=== PATIENT | male | born 1945 | race African-American/Black ===

== ENCOUNTER 2019-06-27 05:44 | Inpatient (IN) | payer MEDICARE, MEDICAID, SELFPAY ==
[2019-06-27] VITALS (14 sets, daily range): BP systolic 119–167; BP diastolic 60–79; PULSE 82–120; RESP 16–24; TEMP 36.1–37.2; O2SAT 90–98; BMI 19.5
--- NOTE | 2019-06-27 05:48 | CTR_ITS ---
PROCEDURE INFORMATION: Exam: CT Head Without Contrast Exam date and time: 06/27/2019 5:50 AM Age: 73 years old Clinical indication: Injury or trauma; Fall; Speech disturbance; Slurred speech; Patient HX: HX prior stoke; Additional info: CVA TECHNIQUE: Imaging protocol: Computed tomography of the head without contrast. Total DLP: 827.74 mGy-cm Radiation optimization: All CT scans at this facility use at least one of these dose optimization techniques: automated exposure control; mA and/or kV adjustment per patient size (includes targeted exams where dose is matched to clinical indication); or iterative reconstruction. COMPARISON: CT head wo con* [id number] 06/09/2018 10:16 AM FINDINGS: Brain: No acute intracranial hemorrhage or mass effect. There is decreased attenuation in the periventricular white matter, likely from microvascular disease. As before, there are old lacunar infarcts in the basal ganglia/internal capsule regions bilaterally. Old infarcts also seen in the right cerebellum and zuleima, not significantly changed. No definite acute infarct by CT. MRI could be more sensitive/specific for detection, and also for distinguishing between old and subacute infarcts, as clinically directed. Ventricles: Ventricle size is normal for age. Bones/joints: No definite acute skull fracture. Sinuses: Included paranasal sinuses are essentially clear. Mastoid air cells: No significant acute finding. Vasculature: Prominent vascular calcifications in the internal carotid and vertebral basilar systems. CT/CT head wo con* [id number] IMPRESSION: 1. No acute intracranial hemorrhage or mass effect. 2. Changes of microvascular disease, and old infarcts, details above. 3. No definite acute infarct by CT, see above. 4. Other findings discussed above. Radiation Dose CTDIVOL = (mGy): DLP = 827.74 (mGy-cm)
--- NOTE | 2019-06-27 05:48 | XR_ITS ---
WS: [id number] PORTABLE CHEST HISTORY: cva COMPARISON: 04/16/2016 Lungs are clear and well expanded. No pleural effusion or pneumothorax. Cardiac size: Normal. Mediastinum/Aorta: Mild atherosclerosis aorta. Bilateral AC joint arthritis. XR/XR chest 1V portable [id number] IMPRESSION: Unremarkable portable chest.
--- NOTE | 2019-06-27 05:49 | ECG_ITS ---
Measurements Intervals [place] Rate: 102 P: 60 MD: 143 QRS: 61 QRSD: 85 T: 94 QT: 323 QTc: 421 SINUS TACHYCARDIA POSSIBLE RIGHT VENTRICULAR CONDUCTION DELAY [RSR (QR) IN V1/V2] NONSPECIFIC ST & T-WAVE ABNORMALITY ABNORMAL RHYTHM ECG Compared to ECG 06/09/2018 18:20:46 T-wave abnormality now present Sinus rhythm no longer present Electronically Signed On 06-27-2019 19:06:40 CDT by Cheryl Lu M.D. [email or web address]
--- NOTE | 2019-06-27 06:15 | ED_ITS ---
HPI - Neuro Symptoms/Deficit General: Chief Complaint: Neuro Symptoms/Deficit Stated Complaint: Stroke Like Symptoms Time Seen by Provider: 06/27/19 06:03 History of Present Illness: HPI Narrative: 73 yo black male comes in complaining weakness on the right side. He is previously had a stroke affecting his right side but he feels his speech and his weakness on the right side are worse now than they were before he went to bed at around 11:00 and felt normal. He woke up around 1 and had fallen out of bed. His speech is indeed slurred he is able to give a fairly good history he states his vision and swallowing are the same denies any respiratory symptoms denies any chest pain. Onset (ago): hour(s) Time: 23:00 Location: speech, left arm and left leg History of same: Yes Severity: severe Quality: weak Relieving factors: none Exacerbating factors: none Context: found down and recent fall Associated symptoms: Deny chest pain, malaise, nausea or vomiting Review of Systems Const: Denies: fever, chills, body aches, change in appetite, fatigue or lizzeth ise ENMT: Denies: throat pain, ear pain, nasal discharge or nasal congestion Card: Denies: chest pain, edema, shortness of breath on exertion or shortness of breath when lying down Resp: Denies: shortness of breath, productive cough or non-productive cough GI: Denies: abdominal pain, nausea, vomiting, vomiting blood, coffee grounds in vomit, diarrhea, constipation, bloating, blood in stool or black tarry stool : Denies: flank pain, painful urination, urinary frequency or urinary urgency Skin/Breast: Denies: rash or itching Neuro: Reports: numbness in extremities, weakness in extremities, difficulty walking and slurred speech PFS ED PFSH: Medical History (Updated 06/27/19 @ 08:49 by Jhoan Solorio DO) BPH (benign prostatic hyperplasia) CVA (cerebral vascular accident) Diabetes mellitus type 2 in nonobese Hypertension Peripheral artery disease Subdural hematoma Surgical History (Updated 06/27/19 @ 07:29 by Jhoan Solorio DO) H/O right inguinal hernia repair S/P cholecystectomy Family History (Updated 06/27/19 @ 07:30 by Jhoan Solorio DO) Other Cancer Diabetes Social History (Updated 06/27/19 @ 07:31 by Jhoan Solorio DO) Smoking and tobacco status: current every day smoker Alcohol intake: never Lives independently: Yes Household members: none NIH stroke score NIHSS: Level Of Consciousness - 1a: 0 Level Of Consciousness Questions - 1b: Both Correct Level Of Consciousness Commands - 1c: Both Correct Best Gaze - 2: Normal Visual Tim - 3: No Visual Loss Facial Palsy - 4: Partial Paralysis Motor Arm Right - 5: Effort Against Carney Motor Arm Left - 5: No Drift Motor Leg Right - 6: Effort Against Carney Motor Leg Left - 6: No Drift Limb Ataxia - 7: Present In Two Limbs Sensory - 8: Mild To Moderate Loss Best Language - 9: No Aphasia Dysarthia - 10: Mild/Moderate Dysarthia Extinction And Inattention - 11: 0 Score: Total Score: 10 Physical Exam Const: COMMON NORMALS: no apparent distress GENERAL APPEARANCE: cooperative and comfortable ORIENTATION/CONSCIOUSNESS: Yes awake, Yes oriented to person, Yes oriented to place and Yes oriented to time HENMT: COMMON NORMALS: normocephalic, head/scalp atraumatic, hearing grossly normal bilaterally, external ears normal, EAC's normal, TM's normal bilaterally, nasal mucous membranes and turbinates normal, moist oral mucous membranes and oropharynx normal HEAD & SCALP: normocephalic and atraumatic NOSE: nasal mucous membranes and turbinates normal EXTERNAL EAR: Yes external ears normal EXTERNAL AUDITORY CANAL: EAC's normal TYMPANIC MEMBRANE: TM's normal bilaterally Eye: COMMON NORMALS: PERRL, EOMs intact bilaterally, conjunctivae normal and no scleral icterus CONJUNCTIVA: Yes conjunctivae normal PUPIL: Yes PERRL Neck/C-Spine: COMMON NORMALS: full ROM, no lymphadenopathy, supple and no JVD Lymph: LYMPHATIC: no lymphadenopathy noted and no lymphedema noted Resp: COMMON NORMALS: normal respiratory effort, no retractions, no use of accessory muscles and clear to auscultation bilaterally AUSCULTATION: clear to auscultation bilaterally Cardio: COMMON NORMALS: no JVD, regular rate, regular rhythm and no murmurs RATE: regular rate RHYTHM: regular rhythm GI: COMMON NORMALS: soft to palpation and no hepatosplenomegaly AUSCULTATION: Yes normoactive bowel sounds PALPATION: Yes soft, No tender, No guarding and Yes no hepatosplenomegaly Extremity: COMMON NORMALS: normal to inspection, normal capillary refill, no clubbing, cyanosis or edema, no calf tenderness and no pedal edema Neuro: SENSORIUM/ORIENTATION: Yes oriented to person, Yes oriented to place and Yes oriented to time COORDINATION/BALANCE: No [id number] test normal SPEECH: abnormal speech DEEP TENDON REFLEXES: Rt Triceps (C7): 2+, Rt Biceps (C5, C6): 2+, Rt Brachioradialis (C6): 2+, Rt Patellar (L4): 2+ and Rt Ankle (S1): 2+ COORDINATION: [id number] test abnormal OTHER: Patient states his weakness and speech trouble were present with previous stroke but have worsened this morning. Skin: COMMON NORMALS: no rashes or lesions noted GENERAL SKIN EXAM: no rashes or lesions noted Course Vital Signs: Vital signs: Vital Signs Pulse Rate 97 06/27/19 08:29 Respiratory Rate 20 H 06/27/19 08:29 Blood Pressure 155/66 06/27/19 08:29 Pulse Oximetry 95 06/27/19 08:29 MDM - Neuro Symptoms/Deficit MDM Narrative: Medical decision making narrative: Patient has worsening right- sided symptoms from his baseline. Organ to go ahead and put him on observation to reevaluate for the acute extension of his previous stroke. Discussed with Dr. Ellis. Lab Data: Labs: Lab Results 06/27/19 06/27/19 06/27/19 Range/Units 06:38 06:38 06:38 WBC 15.0 H (4.0-10.0) 10^3/ uL RBC 5.07 (4.1-5.3) 10^6/u L Hgb 13.5 (11.7-16.6) g/dL Hct 43.3 (42.0-52.0) % MCV 85.4 (80-94) fL MCH 26.6 L (28.0-34.0) pg MCHC 31.2 (30.0-36.0) g/dL RDW 14.6 (12.1-15.1) % Plt Count 213 (130-400) 10^3/c mm MPV 9.7 (7.4-10.4) fL Neut % (Auto) 78.4 % Lymph % (Auto) 15.9 % [place] % (Auto) 4.7 % Eos % (Auto) 0.1 % Baso % (Auto) 0.3 % Neut # (Auto) 11.8 H (1.8-7.7) 10^3/u L Lymph # (Auto) 2.4 (0.8-4.8) 10^3/u L [place] # (Auto) 0.7 (0.2-0.9) 10^3/u L Eos # (Auto) 0.0 (0.0-0.8) 10^3/u L Baso # (Auto) 0.0 (0.0-0.1) 10^3/u L Nucleated RBC % (a uto) 0 % Nucleated RBCs # 0.0 /100WBC PT 13.60 H (10.5-13.3) SECO NDS INR 1.01 (0.8-1.2) Sodium 141 (136-145) mmol/L Potassium 3.2 L (3.5-5.1) mmol/L Chloride 100 (98-107) mmol/L Carbon Dioxide 24 (22-29) mmol/L Anion Gap 20.2 H (5-19) BUN 20 (8-23) mg/dL Creatinine 2.0 H (0.7-1.2) mg/dL Glucose 164 H (65-115) mg/dL Calculated Osmolal ity 292 (285-295) mOsm/k g Calcium 10.3 (8.5-10.5) mg/dL Total Bilirubin 1.2 (0.15-1.2) mg/dL AST 11 (0-40) U/L ALT 8 (0-41) U/L Alkaline Phosphata se 93 (40-130) IU/L Total Protein 8.5 (6.6-8.7) g/dL Albumin 4.1 (3.5-5.2) g/dL Globulin 4.4 (1.3-4.6) g/dL Discharge Plan Discharge Admit Provider: Roldan Smith Clinical Impression: CVA (cerebral vascular accident), Hypertension, Peripheral artery disease, Diabetes mellitus type 2 in nonobese Condition: Stable Coding Level of Care Code ED Finishing Pan Operator for g Fwd Exam Comprehensive
--- NOTE | 2019-06-27 06:23 | XR_ITS ---
WS: [id number] RIGHT SHOULDER: 3 VIEW(S) TECHNIQUE: Internal and external rotation with Y view. HISTORY: pain / fall COMPARISON: None available. No fracture or dislocation or soft tissue abnormality. Moderate degenerative changes at the AC joint. Mild degenerative joint disease at the glenohumeral cherelle int. No acute fracture. XR/XR shoulder RT min 2V* [id number] IMPRESSION: No acute fracture.
[2019-06-27 06:53] LABS: Basophils % 0.3 %; Eosinophils % 0.1 %; Hematocrit 43.3 % (42.0-52.0); Hemoglobin 13.5 g/dL (11.7-16.6); Lymphocytes # 2.4 10^3/uL (0.8-4.8); Lymphocytes % 15.9 %; Mean Corpuscular HGB Conc 31.2 g/dL (30.0-36.0); Mean Corpuscular Hemoglobin 26.6 pg (28.0-34.0); Mean Corpuscular Volume 85.4 fL (80-94); Mean Platelet Volume 9.7 fL (7.4-10.4); Monocytes # 0.7 10^3/uL (0.2-0.9); Monocytes % 4.7 %; Neutrophils # 11.8 10^3/uL (1.8-7.7); Neutrophils % 78.4 %; Nucleated Red Blood Cells % 0 %; Platelet Count 213 10^3/cmm (130-400); Red Blood Count 5.07 10^6/uL (4.1-5.3); Red Cell Distribution Width 14.6 % (12.1-15.1)
[2019-06-27 07:01] LABS: INR 1.01 (0.8-1.2)
[2019-06-27 07:05] LABS: Alanine Aminotransferase 8 U/L (0-41); Albumin Level 4.1 g/dL (3.5-5.2); Alkaline Phosphatase 93 IU/L (40-130); Anion Gap 20.2 (5-19); Aspartate Amino Transferase 11 U/L (0-40); Blood Urea Nitrogen 20 mg/dL (8-23); Calcium 10.3 mg/dL (8.5-10.5); Carbon Dioxide 24 mmol/L (22-29); Chloride 100 mmol/L (98-107); Globulin 4.4 g/dL (1.3-4.6); Glucose 164 mg/dL (65-115); Osmolality Calculated 292 mOsm/kg (285-295); Potassium 3.2 mmol/L (3.5-5.1); Sodium 141 mmol/L (136-145); Total Bilirubin 1.2 mg/dL (0.15-1.2); Total Protein 8.5 g/dL (6.6-8.7)
--- NOTE | 2019-06-27 07:47 | CT_ITS ---
WS: [id number] CT ANGIOGRAM CEREBRAL AND CAROTID ARTERIES HISTORY: CVA TECHNIQUE: CT angiogram is performed of the carotid and cerebral arteries. During arterial injection imaging is obtained from the skull vertex to the aortic arch in 1.25 mm imaging. Coronal and sagittal reformats are submitted. Additional multi planar reformats of the carotid and cerebral arteries are submitted, MIP imaging also reviewed. NASCET criteria utilized. All CT scans at [facility] use at least one of these dose optimization techniques: automated exposure control; mA and/or kV ad justment per patient size (includes targeted exams where dose is matched to clinical indication); or iterative reconstruction. CONTRAST: Visipaque 320; 95 mL IV. DLP: 1821.14 mGy.cm COMPARISON: Noncontrast CT head 06/27/2019. Prior CTA 06/09/2018. Carotid Angiogram: Right carotid: Common carotid artery: Arises normally from the innominate. There is scattered calcified plaque at th e bifurcation. There is a prominent loop of the ICA but no stenosis. Internal carotid artery: Mild calcified plaque at the bifurcation. Prominent loop of the proximal ICA but no stenosis. External carotid artery: Patent. Left carotid: Common carotid artery: Arises from the base of the innominate. Internal carotid artery: Scattered plaque with no significant stenosis. External carotid artery: Patent. Right vertebral artery: RIGHT vertebral artery is smaller caliber than the LEFT. Scattered calcified plaque in the vertebral arteries but no occlusions. Similar to the prior study. Left vertebral artery: Unremarkable. Arises normally from the subclavian artery. Subclavian arteries: No stenosis or significant abnormality. Upper thorax: Chronic emphysematous changes. Extensive intimal thickening in the thoracic aorta and c alcified plaque. There is a focal plaque extending into the lumen by 4 mm involving the proximal desc ending aorta. Similar to the prior study. Thyroid gland: Normal. Osseous structures: Severe spondylitic changes in the cervical and upper thoracic spine. No bone dest ruction. CEREBRAL ANGIOGRAM: Intracranial vertebral arteries: Scattered plaque within the vertebral arteries but they're both haque nt. No stenosis greater than 50%. Slightly tortuous elongated basilar artery. Basilar artery: Slightly tortuous and elongated. Intracranial Internal carotid arteries: Moderate amount of scattered calcified plaque through the cav ernous sinuses and supraclinoid. There is greater than 50% stenosis with similar findings seen on the prior examination. No occlusions. Most significant stenosis involves the distal LEFT cavernous carot id artery. Stenosis approximately 70-80%. Middle cerebral arteries: Normal. Anterior cerebral arteries and ACOM: Normal. Posterior cerebral arteries and PCOM's: RIGHT FINANCIAL AID DIRECTOR circulation. Dural venous sinuses are normally enhancing. Mastoid air cells: Normal. Paranasal sinuses: Mild mucoperiosteal thickening in the ethmoid air cells. Calvarium: Negative. Intensely enhancing ovoid mass in the LEFT RIGHT parotid gland measures 10 mm. Similar to the prior s tudy. Suspect is probably a smaller enhancing nodule in the LEFT thyroid. This nodule measures only [address]/CT angio headneck* [id number] IMPRESSION: 1. Bilateral ICA stenosis less than 50% with mild atherosclerosis. 2. Moderate to severe atherosclerosis in the cavernous portions of the distal ICAs. Similar to the prior study. Stenosis greater than 50% but no occlusion. 3. Bilateral parotid gland enhancing masses. No interval change since 9. May be benign adenomas.
[2019-06-27] MEDS: iodixanol 320 mg/mL 100mL Btl IV (08:17)
[2019-06-27] MEDS: sodium chloride 0.9% 1,000 ML 999 ML IV (08:24)
--- NOTE | 2019-06-27 10:13 | PC.NURSE ---
This nurse entered room to assist lab. nurse noticed pt had a white capsule on his tongue. pt had a pill bottle in his personal bag, which when this nurse went to draw blood he slid his tablet over his lap and bag. primary nurse notified of pt taking own home medications.
[2019-06-27 10:31] LABS: Add Urine Microscopic? YES; Bilirubin Urine Neg (NEGATIVE); Blood Urine 2+ (Negative); Glucose Urine UA 4+ (Normal); Ketones Urine Negative (Negative); Leukocyte Esterase Urine 2+ (Negative); Nitrate Urine Negative (Negative); Protein Urine 1+ (Negative); Specific Gravity, Urine 1.005 (1.005-1.030); Urine Appearance Cloudy (CLEAR); Urine Color Straw (Yellow); Urobilinogen Urine Norm (Negative); pH Urine 5 (5-7)
[2019-06-27 10:32] LABS: Bacteria Urine 2+; WBC Urine TOO NUMEROUS TO CNT /hpf (0-5)
[2019-06-27 10:33] LABS: Add Urine Culture? Yes
[2019-06-27] MEDS: cefTRIAXone 1,000 MG in sodium chloride 0.9% (plus) 50 ML 100 MG IV (10:47)
[2019-06-27] MEDS: sodium chloride 0.9% 1,000 ML 100 ML IV (10:48)
--- NOTE | 2019-06-27 10:51 | PC.CHAP ---
Pastoral Care Encounter/Spiritual Assessment Type of Contact [] Declined services manager visit [] Patient/Family/Request visit [] Outpatient visit [] Follow-up visit [] Physician referral [] Code/Alert [x] Routine visit [] Staff referral [] Actively dying [] Patient sleeping [] Family support [] [] Out of room [] Palliative care [] [] Receiving care in room [] Pre-surgical visit [] Trauma [] Long length of stay [] ICU visit [] Other: Relational/Emotional Strength [] Patient feels connected with others/family/visitors/staff [] Distress [] Loneliness/isolation [] Abandonment Spirituality of Patient [] Person of Yelitza [] Attends Jewish of their Yelitza [x] Believes in Prayer [] Reads Bible or Anabaptist materials [] There are Spiritual issues to be addressed Director Human Services Interventions [x] Prayer [] Active listening [] Non-anxious presence [] Spiritual/emotional support [] Crisis/trauma care [] Spiritual counseling [] Bereavement support [] Provided bereavement packet [] Provided Bible/devotional materials [] Provided toy/stuffed animal, coloring book to patient or family member [] Provided Communion [] Anointing/Jamieson [] Salvation [x] Completed spiritual assessment [] Other: Impact on Illness or Injury [] Angry [] Fearful [] Anxious [] Often cries [] Exhaustion [] Unable to work [] Unable to attend confucianist [] Unable to walk/stand [] Unable to read [] Unable to drive [] Unable to eat/drink [] Unable to sleep [] Unable to be with family [] Patient intubated [] Other: Summary Patient a frail little man, unable to communicate. He uses a lap top to write his comments. Time spent with patient 10 min
[2019-06-27] MEDS: morphine 4 mg/mL SDV 1 mL 2 MG IVP (12:53)
--- NOTE | 2019-06-27 15:40 | MRR_ITS ---
PROCEDURE INFORMATION: Exam: MR Head Without Contrast Exam date and time: 06/27/2019 5:51 PM Age: 73 years old Clinical indication: Other: CVA TECHNIQUE: Imaging protocol: MR of the head without contrast. COMPARISON: CT head wo con* [id number] 06/27/2019 5:47 AM FINDINGS: Brain: There are small chronic appearing lacunar infarcts in the basal ganglia regions bilaterally. There is also chronic appearing lacunar infarct in the zuleima and old infarct in the inferior right cerebellar hemisphere as demonstrated on today's CT scan. There is no intracranial mass or hemorrhage. There is no restricted diffusion such as would indicate an acute infarct. There are T2 and FLAIR signal changes in the white matter regions in keeping with nonspecific chronic ischemic change. Ventricles: Normal. No ventriculomegaly. Bones/joints: Unremarkable. Soft tissues: Unremarkable. Sinuses: Normal as visualized. No acute sinusitis. Mastoid air cells: Normal as visualized. No mastoid effusion. Orbits: Unremarkable. MR/MR head wo con* [id number] IMPRESSION: Old lacunar disease. No acute infarct is identified.
--- NOTE | 2019-06-27 15:43 | P.HP_ITS ---
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 He woke up last night and felt that his weakness was worse. No changes in speech. He presented to emergency room with these complaints. Here he was found to have urinary tract infection. He does have history of BPH and urinary retention. According to his previous discharge summary his urine was positive for Enterococcus faecalis. I did not find any microbiology reports. However he was discharged on penicillin. I am assuming that it was sensitive to ampicillin. The patient denies any other complaints. Initially had some confusion which is currently resolved. He denies any chest pain, palpitations, nausea or vomiting. He has chronic dysphasia and found the way of eating without aspirations. He does not want to be n.p.o. He threatens that he will leave if he is n.p.o. He reports fever and chills. No diarrhea. He denies similar episodes in the past. Review of Systems General: Reports: 10 or more systems reviewed and unremarkable except in HPI and below Medications/Allergies Allergies Allergy/AdvReac Type Severity Reaction Status Date / Time No Known Allergies Allergy Verified 06/27/19 05:57 PFSH Acute PFSH: Medical History (Updated 06/27/19 @ 08:49 by Jhoan Solorio DO) BPH (benign prostatic hyperplasia) CVA (cerebral vascular accident) Diabetes mellitus type 2 in nonobese Hypertension Peripheral artery disease Subdural hematoma Surgical History (Updated 06/27/19 @ 07:29 by Jhoan Solorio DO) H/O right inguinal hernia repair S/P cholecystectomy Family History (Updated 06/27/19 @ 07:30 by Jhoan Solorio DO) Other Cancer Diabetes Social History (Updated 06/27/19 @ 07:31 by Jhoan Solorio DO) Smoking and tobacco status: current every day smoker Alcohol intake: never Lives independently: Yes Household members: none Vitals/I&O/Wt Last Vital Signs Temp 98.9 F 06/27/19 15:26 Pulse 120 H 06/27/19 15:26 Resp 18 06/27/19 15:26 BP 136/60 06/27/19 15:26 Pulse Ox 93 06/27/19 15:26 Weight last 48 hrs Weight 54.93 kg Physical Exam Narrative: EXAM NARRATIVE: The patient is awake alert and oriented x3. No acute distress. Mood and affect are appropriate. Dysarthria and slurred speech is present. Skin is warm and dry. Moist mucous membranes. No JVD Eyes PERRLA, extraocular muscle intact. Right-sided facial weakness is present. 2 out of 5 weakness in the right upper extremity and right lower extremity. Left side seems to be intact. Heart S1, S2, regular Abdomen soft, nontender, bowel sounds are present Lungs clear bilaterally. No respiratory distress Extremities bilateral edema. No cyanosis no calf tenderness bilaterally. Barbi l capillary refill. Data : 06/27/19 06:38 06/27/19 06:38 Micro: Microbiology 06/27/19 09:46 Blood Culture - Preliminary Blood SPECIMEN COLLECTED 06/27/19 09:46 Blood Culture - Preliminary Blood SPECIMEN COLLECTED CT Head: Radiologist's impression: Laboratory Results WBC 15.0 10^3/uL (4.0-10.0) H 06/27/19 06:38 RBC 5.07 10^6/uL (4.1-5.3) 06/27/19 06:38 Hgb 13.5 g/dL (11.7-16.6) 06/27/19 06:38 Hct 43.3 % (42.0-52.0) 06/27/19 06:38 MCV 85.4 fL (80-94) 06/27/19 06:38 MCH 26.6 pg (28.0-34.0) L 06/27/19 06:38 MCHC 31.2 g/dL (30.0-36.0) 06/27/19 06:38 RDW 14.6 % (12.1-15.1) 06/27/19 06:38 Plt Count 213 10^3/cmm (130-400) 06/27/19 06:38 MPV 9.7 fL (7.4-10.4) 06/27/19 06:38 Neut % (Auto) 78.4 % 06/27/19 06:38 Lymph % (Auto) 15.9 % 06/27/19 06:38 [place] % (Auto) 4.7 % 06/27/19 06:38 Eos % (Auto) 0.1 % 06/27/19 06:38 Baso % (Auto) 0.3 % 06/27/19 06:38 Neut # (Auto) 11.8 10^3/uL (1.8-7.7) H 06/27/19 06:38 Lymph # (Auto) 2.4 10^3/uL (0.8-4.8) 06/27/19 06:38 [place] # (Auto) 0.7 10^3/uL (0.2-0.9) 06/27/19 06:38 Eos # (Auto) 0.0 10^3/uL (0.0-0.8) 06/27/19 06:38 Baso # (Auto) 0.0 10^3/uL (0.0-0.1) 06/27/19 06:38 Nucleated RBC % (auto) 0 % 06/27/19 06:38 Nucleated RBCs # 0.0 /100WBC 06/27/19 06:38 PT 13.60 SECONDS (10.5-13.3) H 06/27/19 06:38 INR 1.01 (0.8-1.2) 06/27/19 06:38 Sodium 141 mmol/L (136-145) 06/27/19 06:38 Potassium 3.2 mmol/L (3.5-5.1) L 06/27/19 06:38 Chloride 100 mmol/L (98-107) 06/27/19 06:38 Carbon Dioxide 24 mmol/L (22-29) 06/27/19 06:38 Anion Gap 20.2 (5-19) H 06/27/19 06:38 BUN 20 mg/dL (8-23) 06/27/19 06:38 Creatinine 2.0 mg/dL (0.7-1.2) H 06/27/19 06:38 Glucose 164 mg/dL (65-115) H 06/27/19 06:38 Calculated Osmolality 292 mOsm/kg (285-295) 06/27/19 06:38 Calcium 10.3 mg/dL (8.5-10.5) 06/27/19 06:38 Total Bilirubin 1.2 mg/dL (0.15-1.2) 06/27/19 06:38 AST 11 U/L (0-40) 06/27/19 06:38 ALT 8 U/L (0-41) 06/27/19 06:38 Alkaline Phosphatase 93 IU/L (40-130) 06/27/19 06:38 Total Protein 8.5 g/dL (6.6-8.7) 06/27/19 06:38 Albumin 4.1 g/dL (3.5-5.2) 06/27/19 06:38 Globulin 4.4 g/dL (1.3-4.6) 06/27/19 06:38 Urine Color Straw (Yellow) 06/27/19 09:15 Urine Appearance Cloudy (CLEAR) 06/27/19 09:15 Urine pH 5 (5-7) 06/27/19 09:15 Ur Specific [place] 1.005 (1.005-1.030) 06/27/19 09:15 Urine Protein 1+ (Negative) H 06/27/19 09:15 Urine Glucose (UA) 4+ (Normal) H 06/27/19 09:15 Urine Ketones Negative (Negative) 06/27/19 09:15 Urine Blood 2+ (Negative) H 06/27/19 09:15 Urine Nitrate Negative (Negative) 06/27/19 09:15 Urine Bilirubin Neg (NEGATIVE) 06/27/19 09:15 Urine Urobilinogen Norm mg/dL (Negative) 06/27/19 09:15 Ur Leukocyte Esterase 2+ (Negative) H 06/27/19 09:15 Urine RBC 10-15 /hpf (0-2) H 06/27/19 09:15 Urine WBC Too numerous to cnt /hpf (0-5) H 06/27/19 09:15 Ur Squamous Epith Cells None (0-5) 06/27/19 09:15 Urine Bacteria 2+ (NONE) H 06/27/19 09:15 Urine Yeast 4+ H 06/27/19 09:15 Impressions Chest X-Ray 06/27/19 05:48 IMPRESSION: Unremarkable portable chest. Head CT 06/27/19 05:48 IMPRESSION: 1. No acute intracranial hemorrhage or mass effect. 2. Changes of microvascular disease, and old infarcts, details above. 3. No definite acute infarct by CT, see above. 4. Other findings discussed above. Radiation Dose CTDIVOL = (mGy): DLP = 827.74 (mGy-cm) Shoulder X-Ray 06/27/19 06:23 IMPRESSION: No acute fracture. Head/Neck CTA 06/27/19 07:47 IMPRESSION: 1. Bilateral ICA stenosis less than 50% with mild atherosclerosis. 2. Moderate to severe atherosclerosis in the cavernous portions of the distal ICAs. Similar to the prior study. Stenosis greater than 50% but no occlusion. 3. Bilateral parotid gland enhancing masses. No interval change since 06/09/2018. May be benign adenomas. A&P Additional A&P Information This is a 73-year-old gentleman with previous history of remote CVA with dys arthria and residual right-sided weakness who presented with complaints of worsening weakness in on the right with associated fever. He does not have any new neurologic findings or complaints. Most likely the exacerbation of his weakness is related to urinary tract infection. I will order MRI to confirm that. For now we will continue his home medications for prior stroke. Urinary tract infection. Given Rocephin. However considering that he had enterococcus in the past I will switch him to Zosyn. We will wait for the culture results. Additionally he has history of urinary retention secondary to BPH. We will insert Hardy catheter to prevent retention for now. Acute kidney injury. Probably this is secondary to dehydration and infection. We will hydrate him gently. We will recheck kidney function in the morning. Hypokalemia. Will be replaced. Diabetes. Continue home medications and start insulin sliding scale Hypertension. No acute problems here. We will continue current management. Peripheral vascular disease and carotid stenosis. He will need outpatient work- up and possibly referral to see vascular specialist. We will defer this to the PCP. Dysphasia. The patient reports that this is a chronic problem. He knows how to eat to prevent aspiration. He refused to be n.p.o. We will ask speech therapy to see him and help with some recommendations to decrease the risk of aspiration. DVT prophylaxis. Lovenox. The plan of care was discussed with the patient. He verbalized understanding and agreement. Attestations Medical Necessity Statement*: I expect that the patient will spend 1 or 2 days in the hospital. We will keep him on observation. Coding Level of Care Code Acute Tower Switch Operator for Mary Lozoya
[2019-06-27] MEDS: sodium chloride 0.9% 1,000 ML 75 ML IV (16:24)
[2019-06-27] MEDS: enoxaparin 30 mg/0.3 mL Syringe SUBCUT (16:24)
[2019-06-27] MEDS: piperacillin-tazobactam 3.375 GM in sodium chloride 0.9% (plus) 50 ML IV (16:25)
[2019-06-27] MEDS: HYDROcodone-acetaminophen 10-325 mg Tablet 1 TAB PO (16:55)
[2019-06-27 21:26] LABS: Glucose Point of Care 228 mg/dL (70-110)
[2019-06-27 22:13] LABS: Glucose Point of Care 284 mg/dL (70-110)
--- NOTE | 2019-06-27 22:51 | PC.NURSE ---
NOTIFIED DR RODRIGUEZ OF PT'S MED REC DONE IF HE CAN REVIEW IT. DR RODRIGUEZ ASKING WHAT MEDS HE IS ON. ORDERS TO RESTART LYRICA AND NEUROTIN.
[2019-06-27] MEDS: pregabalin 75 mg Capsule PO (23:23)
[2019-06-27] MEDS: gabapentin 100 mg Capsule PO (23:23)
[2019-06-28] VITALS (7 sets, daily range): BP systolic 114–180; BP diastolic 64–94; PULSE 76–123; RESP 16–20; TEMP 36.6–36.8; O2SAT 92–97
[2019-06-28] MEDS: HYDROcodone-acetaminophen 10-325 mg Tablet 1 TAB PO ×3 (01:46→20:48)
[2019-06-28 06:54] LABS: Glucose Point of Care 146 mg/dL (70-110)
[2019-06-28] MEDS: piperacillin-tazobactam 3.375 GM in sodium chloride 0.9% (plus) 50 ML IV (08:26)
[2019-06-28] MEDS: gabapentin 100 mg Capsule PO ×3 (08:27→20:48)
[2019-06-28] MEDS: pregabalin 75 mg Capsule PO ×2 (08:27→17:36)
--- NOTE | 2019-06-28 09:37 | PC.OT ---
OT NOTE: OT EVALUATION COMPLETED. PATIENT DEMONSTRATES NO DEFICITS IN UE ROM OR MX STRENGTH, NO APPARENT VISION DEFICITS OR BALANCE DEFICITS THAT WOULD WARRANT FURTHER SKILLED OT SERVICES.
--- NOTE | 2019-06-28 10:31 | PM.PN ---
Subjective Subjective: Interval history: Doing okay. Denies any active complaints. Unfortunately he refused Hardy catheter placement yesterday. However still able to empty his bladder. Denies fevers or chills. No chest pain, shortness of breath, cough, palpitations. Reports good appetite. Weakness is baseline. Problems with speech are at baseline. Medications: Reviewed: Yes Medication Review Details: Generic Name Dose Route Start Last Admin Trade Name Freq PRN Reason Stop Dose Admin Hydrocodone Bitart /Acetaminophen 1 tab 06/27/19 16:46 06/28/19 10:13 [place] 10-325 Mg PO 1 tab Q8H PRN Administration MODERATE PAIN Docusate Sodium 100 mg 06/27/19 18:00 06/28/19 08:26 Colace PO Not Given BID CINTIA Enoxaparin Sodium 30 mg 06/27/19 16:00 06/27/19 16:24 Lovenox SUBCUT 30 mg Q24H CINTIA Administration Gabapentin 100 mg 06/27/19 22:53 06/28/19 08:27 Neurontin PO 100 mg TID CINTIA Administration Sodium Chloride 1,000 mls @ 75 ml s/hr 06/27/19 15:45 06/28/19 09:06 Sodium Chloride 0.9% IV Not Given .[id number] [facility] Insulin Aspart 0 unit 06/27/19 18:00 06/28/19 09:05 Novolog SUBCUT Not Given WM&BEDTIME [facility] Protocol Morphine Sulfate 2 mg 06/27/19 12:26 06/27/19 12:53 Morphine IVP 2 mg Q4H PRN Administration SEVERE PAIN Vitals/I&O/Wt Last Vital Signs Temp 98.3 F 06/28/19 07:38 Pulse 101 H 06/28/19 09:58 Resp 18 06/28/19 07:38 BP 118/64 06/28/19 07:38 Pulse Ox 92 06/28/19 09:58 06/27/19 06/28/19 06/28/19 22:59 06:59 14:59 Intake Total 865 / 865 240 / 1105 Output Total 400 / 400 450 / 850 1300 / 1300 Balance 465 / 465 -210 / 255 -1300 / -1300 Weight last 48 hrs Weight 54.93 kg Physical Exam Narrative: EXAM NARRATIVE: The patient is awake alert and oriented x3. No acute distress. Mood and affect are appropriate. Dysarthria and slurred speech is present. Skin is warm and dry. Moist mucous membranes. No JVD Eyes PERRLA, extraocular muscle intact. Right-sided facial weakness is present. 2 out of 5 weakness in the right upper extremity and right lower extremity. Left side seems to be intact. Heart S1, S2, regular Abdomen soft, nontender, bowel sounds are present Lungs clear bilaterally. No respiratory distress Extremities bilateral edema. No cyanosis no calf tenderness bilaterally. Normal capillary refill. Data : 06/27/19 06:38 06/27/19 06:38 Micro: Microbiology 06/27/19 09:46 Blood Culture - Preliminary Blood NEGATIVE TO DATE 06/27/19 09:46 Blood Culture - Preliminary Blood NEGATIVE TO DATE 06/27/19 09:15 Urine Culture - Preliminary Urine,Clean Catch Yeast species A&P Additional A&P Information This is a 73-year-old gentleman with previous history of remote CVA with dysarthria and residual right-sided weakness who presented with complaints of worsening weakness in on the right with associated fever. He does not have any new neurologic findings or complaints. Most likely the exacerbation of his weakness is related to urinary tract infection. I will order MRI to confirm that. For now we will continue his home medications for prior stroke. Urinary tract infection. UCS is positive for yeast. Stopping Zosyn and starting fluconazole. History of urinary retention secondary to BPH. The patient refused Hardy yesterday. I am concerned about his acute kidney injury. I will order kidney ultrasound to rule out hydronephrosis. Acute kidney injury. Probably this is secondary to dehydration and infection versus obstructive uropathy. Management as above. Hypokalemia. Will be replaced p.o and monitored. Diabetes. Continue home medications and start insulin sliding scale Hypertension. No acute problems here. We will continue current management. Peripheral vascular disease and carotid stenosis. He will need outpatient work-up and possibly referral to see vascular specialist. We will defer this to the PCP. Dysphasia. The patient reports that this is a chronic problem. He knows how to eat to prevent aspiration. He refused to be n.p.o. We will ask speech therapy to see him and help with some recommendations to decrease the risk of aspiration. DVT prophylaxis. Lovenox. The plan of care was discussed with the patient. He verbalized understanding and agreement. Attestations Medical Necessity Statement*: The patient needs additional testing and treatments. Please see above. Requires another midnight. Coding Level of Care Code Acute Housekeeping Director for Mary Lozoya
--- NOTE | 2019-06-28 10:34 | US_ITS ---
WS: [id number] RENAL ULTRASOUND Urinary bladder HISTORY: Acute renal failure. COMPARISON: None available. TECHNIQUE: 2-D and color Doppler imaging of the kidney submitted. Right kidney: 11.2 cm x 5.5 cm x 5.3 cm. Normal echogenicity with no hydronephrosis or mass. Left kidney: 9.5 cm x 5.9 cm x 5.9 cm. Normal echogenicity with no hydronephrosis or mass. Aorta: Normal. Urinary Bladder: Normal distention. US/US renal BI with bladder IMPRESSION: Normal renal ultrasound.
[2019-06-28] MEDS: fluconazole premix 200 MG/100 ML PREMIX 100 MG IV (10:57)
[2019-06-28 10:59] LABS: Glucose Point of Care 464 mg/dL (70-110)
--- NOTE | 2019-06-28 11:08 | PC.NURSE ---
Blood sugar 462, patient drinking regular soda from home. Education given and patient refuses to quit drinking soda. Also noted at this time when patient opened his bag that home medications where in the bag. Patient asked to allow nurse to lock up his home medications but became very angry and began yelling at nurse. Reported to charge nurse who is now is to speak to patient.
--- NOTE | 2019-06-28 11:18 | PC.NURSE ---
this nurse visited with patient about his home medications because of concern that he may be taking some of his home medications. Patient pulled out medication bottles-invokana, lisinopril, lyrica, gabapentin and hydrocodone. This nurse told patient that we normally take a patient's home medications and keep them locked up until they are discharged. patient refused to give medications to this nurse and patient care nurse Kate Rodriguez RN. notified.
[2019-06-28] MEDS: enoxaparin 30 mg/0.3 mL Syringe SUBCUT (15:30)
[2019-06-28] MEDS: sodium chloride 0.9% 1,000 ML 75 ML IV (15:32)
[2019-06-28 16:31] LABS: Glucose Point of Care 102 mg/dL (70-110)
[2019-06-28 20:35] LABS: Glucose Point of Care 153 mg/dL (70-110)
[2019-06-29] VITALS (7 sets, daily range): BP systolic 138–158; BP diastolic 64–82; PULSE 74–101; RESP 16–22; TEMP 36.5–36.8; O2SAT 91–95
[2019-06-29 04:57] LABS: Basophils % 0.5 %; Eosinophils # 0.1 10^3/uL (0.0-0.8); Eosinophils % 1.3 %; Hematocrit 33.8 % (42.0-52.0); Hemoglobin 10.7 g/dL (11.7-16.6); Lymphocytes # 2.8 10^3/uL (0.8-4.8); Lymphocytes % 33.9 %; Mean Corpuscular HGB Conc 31.7 g/dL (30.0-36.0); Mean Corpuscular Hemoglobin 27.2 pg (28.0-34.0); Mean Platelet Volume 10.3 fL (7.4-10.4); Monocytes # 0.5 10^3/uL (0.2-0.9); Monocytes % 6.3 %; Neutrophils # 4.8 10^3/uL (1.8-7.7); Neutrophils % 57.8 %; Nucleated Red Blood Cells % 0 %; Platelet Count 172 10^3/cmm (130-400); Red Blood Count 3.93 10^6/uL (4.1-5.3); Red Cell Distribution Width 14.6 % (12.1-15.1); White Blood Count 8.3 10^3/uL (4.0-10.0)
[2019-06-29 05:27] LABS: Magnesium 1.4 mg/dL (1.7-2.3)
[2019-06-29 05:28] LABS: Albumin Level 3.2 g/dL (3.5-5.2); Blood Urea Nitrogen 19 mg/dL (8-23); Calcium 8.4 mg/dL (8.5-10.5); Carbon Dioxide 26 mmol/L (22-29); Chloride 104 mmol/L (98-107); Creatinine Clr Calc Pharmacy 40.0485; Glucose 162 mg/dL (65-115); Phosphorus 2.7 mg/dL (2.5-4.5); Sodium 142 mmol/L (136-145)
[2019-06-29] MEDS: sodium chloride 0.9% 1,000 ML 75 ML IV (06:07)
[2019-06-29 06:41] LABS: Glucose Point of Care 150 mg/dL (70-110)
[2019-06-29] MEDS: HYDROcodone-acetaminophen 10-325 mg Tablet 1 TAB PO (07:38)
[2019-06-29] MEDS: gabapentin 100 mg Capsule PO (09:06)
[2019-06-29] MEDS: magnesium oxide 400 mg tablet PO (09:06)
[2019-06-29] MEDS: pregabalin 75 mg Capsule PO (09:06)
--- NOTE | 2019-06-29 09:40 | PC.CHAP ---
Pastoral Care Encounter/Spiritual Assessment Type of Contact [] Declined senior business manager visit [] Patient/Family/Request visit [] Outpatient visit [] Follow-up visit [] Physician referral [] Code/Alert [x] Routine visit [] Staff referral [] Actively dying [] Patient sleeping [] Family support [] [] Out of room [] Palliative care [] [] Receiving care in room [] Pre-surgical visit [] Trauma [] Long length of stay [] ICU visit [] Other: Relational/Emotional Strength [] Patient feels connected with others/family/visitors/staff [] Distress [] Loneliness/isolation [] Abandonment Spirituality of Patient [] Person of Yelitza [] Attends Temple of their Yelitza [] Believes in Prayer [] Reads Bible or Advent materials [] There are Spiritual issues to be addressed Weaver [employer] Interventions [x] Prayer [] Active listening [] Non-anxious presence [] Spiritual/emotional support [] Crisis/trauma care [] Spiritual counseling [] Bereavement support [] Provided bereavement packet [] Provided Bible/devotional materials [] Provided toy/stuffed animal, coloring book to patient or family member [] Provided Communion [] Anointing/[place] [] Salvation [x] Completed spiritual assessment [] Other: Impact on Illness or Injury [] Angry [] Fearful [] Anxious [] Often cries [] Exhaustion [] Unable to work [] Unable to attend mormon [] Unable to walk/stand [] Unable to read [] Unable to drive [] Unable to eat/drink [] Unable to sleep [] Unable to be with family [] Patient intubated [] Other: Summary Pachuta checked in on patient. Pachuta had visited with patient Tuesday. Patient seems to be resting well, setting in bed side chair. Time spent with patient
[2019-06-29 10:44] LABS: Glucose Point of Care 172 mg/dL (70-110)
--- NOTE | 2019-06-29 11:44 | P.DS_ITS ---
Discharge Providers Date of Admission: 06/28/19 08:36 Date of Discharge: June 29, 2019 Attending Provider at Admission: Roldan Smith Attending Provider at Discharge: Roldan Smith Primary Care Provider: Emmanuel He MD Reason for Visit Reason for Visit: Reason For Visit: CVA ACUTE Hospital Course Discharge Summary: This is a 73-year-old gentleman with previous history of remote CVA with dysarthria and residual right-sided weakness who presented with complaints of worsening weakness in on the right with associated fever. He does not have any new neurologic findings or complaints. Most likely the exacerbation of his weakness is related to urinary tract infection. MRI brain was negative for acute CVA. It showed prior lacunar changes. The patient is started on small dose of aspirin for prophylactic reasons. The patient also was described to have parotid gland enhancing masses. No interval changes. This is deferred for primary care physician to follow-up. Urinary tract infection. UCS is positive for yeast. Started on fluconazole which he will continue for additional 6 days. History of urinary retention secondary to BPH. Flomax is ordered. He refused Hardy catheter. Acute kidney injury. Probably this is secondary to dehydration and infection versus obstructive uropathy. Please recheck renal function at the next follow- up appointment. Hypokalemia. Replaced. Diabetes. Resuming home management. Hypertension. No acute problems here. We will continue current management. Peripheral vascular disease and carotid stenosis. He will need outpatient work- up and possibly referral to see vascular specialist. We will defer this to the PCP. Dysphasia. The patient reports that this is a chronic problem. He knows how to eat to prevent aspiration. He refused to be n.p.o. We will ask speech therapy to see him and help with some recommendations to decrease the risk of aspiration. DVT prophylaxis. Received Lovenox. Head/Neck CTA 06/27/19 07:47 IMPRESSION: 1. Bilateral ICA stenosis less than 50% with mild atherosclerosis. 2. Moderate to severe atherosclerosis in the cavernous portions of the distal ICAs. Similar to the prior study. Stenosis greater than 50% but no occlusion. 3. Bilateral parotid gland enhancing masses. No interval change since 06/09/2018. May be benign adenomas. 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 No acute infarct is identified. Renal Ultrasound 06/28/19 10:34 IMPRESSION: Normal renal ultrasound. The patient also refused long term facility placement. He wants to go home. Currently stable for discharge. He denies any active or new complaints. He is instructed to follow-up with his primary care physician in a week. He was asked to come back to emergency room if he develops any new problems or co mplaints. He verbalized understanding and agreement. Time spent on this discharge is 35 minutes Physical Exam Narrative: EXAM NARRATIVE: The patient is awake alert and oriented x3. No acute distress. Mood and affect are appropriate. Dysarthria and slurred speech is present, unchanged. Skin is warm and dry. Moist mucous membranes. No JVD Eyes PERRLA, extraocular muscle intact. Right-sided facial weakness is present. 2 out of 5 weakness in the right upper extremity and right lower extremity. Left side seems to be intact. Heart S1, S2, regular Abdomen soft, nontender, bowel sounds are present Lungs clear bilaterally. No respiratory distress Extremities bilateral edema. No cyanosis no calf tenderness bilaterally. Normal capillary refill. Discharge Data Data Completed and Pending: Completed Studies During Hospitalization Category Date Time Status CT angio headneck * [id number] Stat Cat Scan 06/27/19 07:[address] head wo con* 7 0450 Urgent Cat Scan 06/27/19 05:48 Completed XR chest 1V kae ble [id number] Urgent Exams 06/27/19 05:48 Completed XR shoulder RT mi n 2V* [id number] Stat Exams 06/27/19 06:23 Completed MR head wo con* 7 0551 Routine MRI 06/27/19 15:40 Completed US renal BI with bladder Urgent Ultrasound 06/28/19 10:34 Completed Pending at discharge Category Date Time Status Blood Culture Sta t Lab 06/27/19 09:46 Results Urine Culture Sta t Lab 06/27/19 09:15 Results Labs from last 24 hours 06/29/19 06/29/19 06/29/19 10:40 06:33 04:32 WBC RBC Hgb Hct MCV MCH MCHC RDW Plt Count MPV Neut % (Auto) Lymph % (Auto) [place] % (Auto) Eos % (Auto) Baso % (Auto) Neut # (Auto) Lymph # (Auto) [place] # (Auto) Eos # (Auto) Baso # (Auto) Nucleated RBC % (a uto) Nucleated RBCs # Sodium 142 Potassium 3.0 L Chloride 104 Carbon Dioxide 26 Anion Gap 15.0 BUN 19 Creatinine 1.4 H Glucose 162 H POC Glucose 172 150 Calcium 8.4 L Phosphorus 2.7 Magnesium Albumin 3.2 L 06/29/19 06/29/19 06/28/19 04:32 04:32 20:28 WBC 8.3 RBC 3.93 L Hgb 10.7 L Hct 33.8 L MCV 86.0 MCH 27.2 L MCHC 31.7 RDW 14.6 Plt Count 172 MPV 10.3 Neut % (Auto) 57.8 Lymph % (Auto) 33.9 [place] % (Auto) 6.3 Eos % (Auto) 1.3 Baso % (Auto) 0.5 Neut # (Auto) 4.8 Lymph # (Auto) 2.8 [place] # (Auto) 0.5 Eos # (Auto) 0.1 Baso # (Auto) 0.0 Nucleated RBC % (a uto) 0 Nucleated RBCs # 0.0 Sodium Potassium Chloride Carbon Dioxide Anion Gap BUN Creatinine Glucose POC Glucose 153 Calcium Phosphorus Magnesium 1.4 L Albumin 06/28/19 16:26 WBC RBC Hgb Hct MCV MCH MCHC RDW Plt Count MPV Neut % (Auto) Lymph % (Auto) [place] % (Auto) Eos % (Auto) Baso % (Auto) Neut # (Auto) Lymph # (Auto) [place] # (Auto) Eos # (Auto) Baso # (Auto) Nucleated RBC % (a uto) Nucleated RBCs # Sodium Potassium Chloride Carbon Dioxide Anion Gap BUN Creatinine Glucose POC Glucose 102 Calcium Phosphorus Magnesium Albumin Vitals: Last Vital Signs Temp 98.2 F 06/29/19 11:23 Pulse 76 06/29/19 11:23 Resp 18 06/29/19 11:23 BP 138/74 06/29/19 11:23 Pulse Ox 93 06/29/19 11:23 Discharge Plan Discharge Patient Disposition: Home, Self-Care Condition: Stable Prescriptions: New fluconazole 100 mg Tablet 200 mg PO DAILY 6 Days Qty: 12 RF: 0 magnesium oxide 400 mg (241.3 mg magnesium) Tablet 400 mg PO BID Qty: 6 RF: 0 tamsulosin 0.4 mg Capsule 0.4 mg PO DAILY Qty: 30 RF: 0 aspirin 81 mg Tablet,Delayed Release (Dr/Ec) 81 mg PO DAILY Qty: 30 RF: 0 Continued hydrocodone-acetaminophen 10-325 mg Tablet 1 tab PO Q8H PRN (Reason: Pain, Moderate) RF: 0 gabapentin [Neurontin] 100 mg Capsule 100 PO TID RF: 0 ranitidine HCl 150 mg Tablet 150 mg PO BID RF: 0 Lyrica 75 mg Capsule 75 mg PO BID RF: 0 Invokana 300 mg Tablet 300 mg PO DAILY RF: 0 Discharge Orders: Discharge Order (Routine); Ordered 06/29/19 Ordered By: Roldan Smith Referrals: [facility] [Outside] Emmanuel He MD [Primary Care Provider] - (PLEASE CALL FOR APPOINT[place] [facility] [facility] [place] Discharge Diet: Cardiac and Diabetic Discharge Activity: Increase activity as tolerated Activity Restrictions/Additional Instructions: Please return to emergency room if develop any new complaints such as new muscle weakness, worsening speech, fever or chills, problems with urination, diarrhea, nausea, vomiting, or any other new symptoms. Discharge Attestations Time Spent in Discharge Care*: greater than 30 min Quality Metrics Clinical Quality Measures During this hospital stay, did patient experience: None Coding Level of Care Code Acute Call Center Support Consultant for Mary Lozoya
--- NOTE | 2019-06-29 14:01 | PC.NURSE ---
Discharge Summary Patient was given discharge instructions and verbalized understanding. patients iv discontinued. patient alert/oriented and vital signs within patients normal. patient taken by wheelchair to awaiting ride. Patient is to call primary care and schedule follow up appointment. prescriptions sent to patients preferred pharmacy.
== END 2019-06-29 14:07 | disposition home or self-care (01) | DRG 690 ==
LOC: ER 08:22 → MEDSURG 08:49
PROVIDERS: Emergency Medicine; Admitting Provider Internal Medicine; Emergency Provider Family Medicine; Family Provider Family Medicine; PCP Family Medicine; Visit Provider Internal Medicine
DX: N39.0 Urinary tract infection, site not specified (principal); I69.951 Hemiplegia and hemiparesis following unspecified cerebrovascular disease affecting right dominant side; N17.9 Acute kidney failure, unspecified; I69.922 Dysarthria following unspecified cerebrovascular disease; N40.1 Benign prostatic hyperplasia with lower urinary tract symptoms; R33.8 Other retention of urine; E11.42 Type 2 diabetes mellitus with diabetic polyneuropathy; I10 Essential (primary) hypertension; F17.210 Nicotine dependence, cigarettes, uncomplicated; I65.23 Occlusion and stenosis of bilateral carotid arteries; E86.0 Dehydration; E87.6 Hypokalemia; Z79.891 Long term (current) use of opiate analgesic
CPT/HCPCS: 12345; 36415; 36416; 70450; 70496; 70498; 70551; 71045; 73030; 76770; 76857; 80053; 80069; 81001; 82962; 83735; 85025; 85610; 87040; 87086; 87106; 92523; 92526; 92610; 93005; 96105; 96365; 96372; 96375; 97116; 97161; 97530; 99283; 99285; A9270; G0378; J0696; J1450; J1650; J1815; J2270; J2543; J7030; Q9967

== ENCOUNTER 2021-11-04 17:43 | Inpatient (IN) | payer MEDICARE, MEDICAID, SELFPAY ==
--- NOTE | 2021-11-04 18:03 | XRR_ITS ---
PROCEDURE INFORMATION: Exam: XR Right Hip Exam date and time: 11/04/2021 6:30 PM Age: 75 years old Clinical indication: Injury or trauma; Fall; Other: Fell TECHNIQUE: Imaging protocol: Radiologic exam of the Right hip. Views: 1 view hip with pelvis when performed. COMPARISON: CT chest abdomen wo con 09/03/2015 10:04 AM FINDINGS: Bones/joints: Right subcapital impacted hip fracture. Soft tissues: Unremarkable. Vasculature: Scattered vascular calcifications. XR/XR hip RT 2-3V wo/w pel* [id number] IMPRESSION: 1. Right subcapital impacted hip fracture. 2. Scattered vascular calcifications.
[2021-11-04 18:05] VITALS: BP 146/92; PULSE 95; RESP 15; TEMP 36.8; O2SAT 91; BMI 19.3
--- NOTE | 2021-11-04 18:34 | W.ED.FALL ---
HPI - Fall General: Chief Complaint: Fall Stated Complaint: right side weakness Time Seen by Provider: 11/04/21 17:53 History of Present Illness: 75-year-old male presenting today with fall. Patient notes he fell striking his right hip on the ground. 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 When he tripped lost his balance and struck his right hip. He notes significant pain in his right hip. Pain is worse with movement somewhat relieved with rest. He denies chest pain, shortness of breath, abdominal pain, nausea, vomiting, diarrhea. Review of Systems General: Reports: 10 or more systems reviewed and unremarkable except in HPI and below PFSH ED PFSH: Medical History BPH (benign prostatic hyperplasia) CVA (cerebral vascular accident) Diabetes mellitus type 2 in nonobese Hypertension Peripheral artery disease Subdural hematoma Surgical History H/O right inguinal hernia repair S/P cholecystectomy Family History Other Cancer Diabetes Social History Smoking and tobacco status: current every day smoker Alcohol intake: never Lives independently: Yes Household members: none Physical Exam Const: COMMON NORMALS: no acute distress, patient oriented x3 and alert GENERAL APPEARANCE: cooperative ORIENTATION/CONSCIOUSNESS: Yes awake, Yes oriented to person, Yes oriented to place and Yes oriented to time HENMT: COMMON NORMALS: normocephalic, atraumatic, external ears normal, Normal external nose present and moist oral mucous membranes HEAD & SCALP: normal to inspection, normocephalic and atraumatic NOSE: Normal external nose present GENERAL EAR: hearing grossly impaired EXTERNAL EAR: Yes external ears normal Eye: COMMON NORMALS: Equal, round and reactive pupils present, EOMs intact bilaterally, conjunctivae normal and no scleral icterus GENERAL EYE: appearance normal, both eyes and all related structures EYELID: eyelids normal CONJUNCTIVA: Yes conjunctivae normal SCLERA: sclerae normal PUPIL: Yes Equal, round and reactive pupils present Neck/C-Spine: COMMON NORMALS: full ROM, supple and no JVD GENERAL: Yes normal visual inspection Lymph: LYMPHATIC: no lymphadenopathy noted and no lymphedema noted Chest: COMMONS NORMALS: normal inspection of the chest Resp: COMMON NORMALS: normal respiratory effort, No retractions and No use of accessory muscles Cardio: COMMON NORMALS: no JVD, regular rate and regular rhythm RATE: regular rate RHYTHM: regular rhythm GI: COMMON NORMALS: Normal to inspection, nondistended, normoactive bowel sounds present : COMMON NORMALS: Yes no CVA tenderness BLADDER/KIDNEY EXAM: Yes no CVA tenderness Back/Pelvis: COMMON NORMALS: no CVA tenderness and thoracic and lumbar spine normal to inspection Extremity: COMMON NORMALS: normal to inspection, full ROM and capillary refill normal GENERAL: Yes normal exam except as noted Neuro: COMMON NORMALS: patient oriented x3, CN's II-XII intact bilaterally, moves all extremities, no focal motor deficits, no sensory deficits noted and gait normal SENSORIUM/ORIENTATION: Yes alert, Yes oriented to person, Yes oriented to place and Yes oriented to time Psych: COMMON NORMALS: mental status grossly normal, Normal thought process present, cooperative and normal affect THOUGHT PROCESS: Normal thought process present Skin: COMMON NORMALS: no rashes or lesions noted and no wounds GENERAL SKIN EXAM: no rashes or lesions noted Course Vital Signs: Vital signs: Vital Signs Temperature 98.3 F 11/04/21 18:05 Pulse Rate 95 11/04/21 19:05 Respiratory Rate 17 11/04/21 19:05 Blood Pressure 151/83 11/04/21 19:05 Pulse Oximetry 99 11/04/21 19:05 Oxygen Delivery Me thod 11/04/21 19:05 MDM - Fall Medical Decision Making 75-year-old male presenting today with right-sided hip pain. From mechanical ground-level fall. X-ray with evidence of right hip fracture. Spoke to orthopedics who will repair her hip in the morning. Patient to be n.p.o. after midnight. He requested hospitalist admit patient. Lab Data Radiology Impressions Hip/Pelvis X-Ray 11/04/21 18:03 IMPRESSION: 1. Right subcapital impacted hip fracture. 2. Scattered vascular calcifications. Femur X-Ray 11/04/21 19:32 IMPRESSION: 1. Right subcapital impacted hip fracture. 2. Scattered vascular calcifications. Knee X-Ray 11/04/21 19:32 IMPRESSION: 1. Negative for fracture or dislocation. 2. Mild tricompartmental osteoarthritis of the knee. Pelvis X-Ray 11/04/21 19:32 IMPRESSION: 1. Right subcapital impacted hip fracture. 2. Moderate osteoarthritis of the hips bilaterally. 3. Scattered vascular calcifications. Chest X-Ray 11/04/21 21:51 IMPRESSION: 1. Minimal left largely upper lobe ground-glass airspace opacity may reflect an early infectious process. 2. Mild cardiomegaly. 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
[2021-11-04 19:05] VITALS: BP 151/83; PULSE 95; RESP 17; O2SAT 99
--- NOTE | 2021-11-04 19:32 | XRR_ITS ---
PROCEDURE INFORMATION: Exam: XR Right Femur Exam date and time: 11/04/2021 8:35 PM Age: 75 years old Clinical indication: Injury or trauma; Fall; Blunt trauma and fracture, traumatic; Hip; Right; Closed fracture; Femur; Additional info: Right hip FX TECHNIQUE: Imaging protocol: Radiologic exam of the Right femur. Views: 2 views. COMPARISON: CR (PELVIS, ) 11/04/2021 8:33 PM FINDINGS: Bones/joints: Right subcapital impacted hip fracture. Soft tissues: Unremarkable. Vasculature: Scattered vascular calcifications. XR/XR femur RT min 2V* [id number] IMPRESSION: 1. Right subcapital impacted hip fracture. 2. Scattered vascular calcifications.
--- NOTE | 2021-11-04 19:32 | XRR_ITS ---
PROCEDURE INFORMATION: Exam: XR Pelvis Exam date and time: 11/04/2021 8:33 PM Age: 75 years old Clinical indication: Injury or trauma; Fall; Blunt trauma (contusions or hematomas); Right; Hip; Additional info: Right hip FX, ap pelvis 1 view TECHNIQUE: Imaging protocol: Radiologic exam of the pelvis. Views: 1 or 2 view. COMPARISON: CR (PELVIS, ) 11/04/2021 6:30 PM FINDINGS: Bones/joints: Right subcapital impacted hip fracture. Moderate osteoarthritis of the hips bilaterally. Soft tissues: Unremarkable. Vasculature: Scattered vascular calcifications. XR/XR pelvis 1-2V* [id number] IMPRESSION: 1. Right subcapital impacted hip fracture. 2. Moderate osteoarthritis of the hips bilaterally. 3. Scattered vascular calcifications.
--- NOTE | 2021-11-04 19:32 | XRR_ITS ---
PROCEDURE INFORMATION: Exam: XR Right Knee Exam date and time: 11/04/2021 8:40 PM Age: 75 years old Clinical indication: Injury or trauma; Fall; Fracture, traumatic; Closed fracture; Femur; Right; Injury date: 11/04/2021; Additional info: Right femur FX TECHNIQUE: Imaging protocol: Radiologic exam of the Right knee. Views: 1 or 2 views. COMPARISON: CR (LOW EXM, ) 11/04/2021 8:35 PM FINDINGS: Bones/joints: Mild tricompartmental osteoarthritis of the knee. Soft tissues: Normal. Vasculature: Vascular calcifications. XR/XR knee RT 1-2V [id number] IMPRESSION: 1. Negative for fracture or dislocation. 2. Mild tricompartmental osteoarthritis of the knee.
[2021-11-04] MEDS: HYDROmorphone 1 mg/mL INJ 1 mL 0.5 MG IVP ×2 (20:28→23:58)
--- NOTE | 2021-11-04 21:51 | XRR_ITS ---
PROCEDURE INFORMATION: Exam: XR Chest Exam date and time: 11/04/2021 9:56 PM Age: 75 years old Clinical indication: Shortness of breath; Additional info: SOB TECHNIQUE: Imaging protocol: Radiologic exam of the chest. Views: 1 view. COMPARISON: CR XR chest 1V portable [id number] 06/27/2019 6:14 AM FINDINGS: Lungs: Minimal left largely upper lobe ground-glass airspace opacity may reflect an early infectious process. Pleural spaces: Unremarkable. No pleural effusion. No pneumothorax. Heart/Mediastinum: Mild cardiomegaly. Bones/joints: Unremarkable. XR/XR chest 1V portable [id number] IMPRESSION: 1. Minimal left largely upper lobe ground-glass airspace opacity may reflect an early infectious process. 2. Mild cardiomegaly.
--- NOTE | 2021-11-04 21:55 | P.HP_ITS ---
Providers/Chief Complaint Admitting Physician: Cheryl Meza MD Primary Care Provider: Emmanuel He MD Chief Complaint: right side weakness History of Present Illness Edmond Calvert is a 75 year old male with a past medical history of insulin- dependent type 2 diabetes mellitus, history of BPH, history of peripheral arterial disease, history of hypertension, history of CVA with productive aphasia, dysarthria, residual right-sided weakness, history of urinary retention, who presents to [facility] with fall, right hip pain and found to have a right hip fracture. Given patient's past history of stroke, dysarthria, history taking was difficult, quite limited, but he does have an iPad which she is able to answer some questions, it was able to answer basic yes and no question. The history that I got from the ER provider was that he was bending over, when he tripped and lost his balance and fell onto his right hip. He denies passing out, denies any head trauma, denies any chest pain, denies any palpitations, denies any dysuria, no hematuria he only points to right hip pain, no other pain complaints. He tells me he lives at home by himself and has a caregiver, named Meenu. He is on oxygen, denies smoking, does tell me that he has been wheezing and feeling short of breath, tells me that his sinuses have been bothering him Review of Systems Const: Denies: fever(s) Eyes: Denies: change in vision Card: Denies: chest pain Resp: Reports: dyspnea and non-productive cough GI: Denies: abdominal pain : Denies: dysuria Medications/Allergies Home Medications Medication Instructions Recorded Confirmed Last Taken Type hydrocodone 10 mg-acetaminophen 1 tab PO Q8H PRN Pain, Moderate 06/27/19 11/04/21 Unknown History 325 mg tablet aspirin 81 mg tablet,delayed 81 mg PO DAILY #30 tabs 06/29/19 11/04/21 Unknown Rx release magnesium oxide 400 mg (241.3 mg 400 mg PO BID #6 tabs 06/29/19 11/04/21 Unknown Rx magnesium) tablet tamsulosin 0.4 mg capsule 0.4 mg PO DAILY #30 caps 06/29/19 11/04/21 Unknown Rx azelastine 137 mcg (0.1 %) nasal 1 spray intranasal BID 11/04/21 11/04/21 Unknown History spray aerosol guaifenesin 600 mg tablet, 1,200 mg PO BID PRN Congestion 11/04/21 11/04/21 Unknown History extended release 12 hr (Mucinex) insulin glargine U-300 conc 300 20 unit SUBCUT BID 11/04/21 11/04/21 Unknown History unit/mL (1.5 mL) subcutaneous pen (Toujeo SoloStar U-300 Insulin) metformin 1,000 mg tablet 1,000 mg PO BID 11/04/21 11/04/21 Unknown History metoprolol tartrate 25 mg tablet 25 mg PO DAILY 11/04/21 11/04/21 Unknown History potassium chloride 20 mEq 20 meq PO BID 11/04/21 11/04/21 Unknown History tablet,extended release(part/cryst) Allergies Allergy/AdvReac Type Severity Reaction Status Date / Time No Known Allergies Allergy Verified 11/04/21 18:58 PFSH Acute PFSH: Medical History BPH (benign prostatic hyperplasia) CVA (cerebral vascular accident) Diabetes mellitus type 2 in nonobese Hypertension Peripheral artery disease Subdural hematoma Surgical History H/O right inguinal hernia repair S/P cholecystectomy Family History Other Cancer Diabetes Social History Smoking and tobacco status: current every day smoker Alcohol intake: never Lives independently: Yes Household members: none Vitals/I&O/Wt Last Vital Signs Temp 98.3 F 11/04/21 18:05 Pulse 95 11/04/21 19:05 Resp 17 11/04/21 19:05 BP 151/83 11/04/21 19:05 Pulse Ox 99 11/04/21 19:05 O2 Del Method 11/04/21 19:05 Weight last 48 hrs Weight 54.431 kg Physical Exam Const: COMMON NORMALS: no acute distress OTHER: Alert to person, to place, HENMT: COMMON NORMALS: normocephalic HEAD & SCALP: normocephalic Eye: COMMON NORMALS: Equal, round and reactive pupils present and EOMs intact bilaterally Neck/C-Spine: COMMON NORMALS: no JVD Resp: COMMON NORMALS: normal respiratory effort, No retractions and No use of accessory muscles AUSCULTATION: crackles Cardio: COMMON NORMALS: no JVD, regular rate, regular rhythm, S1 normal heart sound present and S2 normal heart sound present RATE: regular rate RHYTHM: regular rhythm HEART SOUNDS: S1 normal heart sound present and S2 normal heart sound present GI: COMMON NORMALS: Normal to inspection, nondistended, normoactive bowel sounds present, Soft to palpation, non-tender, No hepatosplenomegaly present, no masses and no bruits PALPATION: Yes Soft to palpation and Yes No hepatosplenomegaly present Extremity: COMMON NORMALS: no pedal edema Psych: COMMON NORMALS: mental status grossly normal A&P Assessment and plan (1) Closed hip fracture: Status: Acute (2) BPH (benign prostatic hyperplasia): Status: Acute (3) Diabetes mellitus type 2 in nonobese: Status: Acute (4) CVA (cerebral vascular accident): Status: Acute (5) Peripheral artery disease: Status: Acute (6) Hypertension: Status: Acute (7) Fall: Status: Acute Plan Fall -Sounds mechanical, however history taking is difficult, needs broader work-up -Blood work, urinalysis, troponin series, telemetry monitoring, EKG, CT head Plan -N.p.o. midnight -SCDs for DVT prophylaxis -Plan for surgical invention tomorrow morning -Orthopedic service consulted -Dilaudid for pain control -Type 2 diabetes mellitus low-dose sliding scale -Hypertension continue metoprolol -Continue Flomax -Wheezing, and crackles on exam, etiology unclear, blood work as above, chest x- ray, COVID-19 testing Attestations Medical Necessity Statement*: Patient requires hospitalization, inpatient, greater than 2 midnights, for fall Coding Level of Care Code Acute Respiratory Clinician for g Fwd Diagnoses Closed hip fracture S72.009A BPH (benign prostatic hyperplasia) N40.0 Diabetes mellitus type 2 in nonobese E11.9 CVA (cerebral vascular accident) I63.9 Peripheral artery disease I73.9 Hypertension I10 Fall W19.XXXA
--- NOTE | 2021-11-04 21:57 | CTR_ITS ---
PROCEDURE INFORMATION: Exam: CT Head Without Contrast Exam date and time: 11/05/2021 4:50 AM Age: 75 years old Clinical indication: Injury or trauma; Blunt trauma (contusions or hematomas); Patient HX: Fall last night. Hematoma to RT parietal near vertex. History of CVA. TECHNIQUE: Imaging protocol: Computed tomography of the head without contrast. Radiation optimization: All CT scans at this facility use at least one of these dose optimization techniques: automated exposure control; mA and/or kV adjustment per patient size (includes targeted exams where dose is matched to clinical indication); or iterative reconstruction. COMPARISON: MR head wo con* [id number] 06/27/2019 5:25 PM RADIATION DOSE METRICS: Total DLP (mGy-cm): 707.09 FINDINGS: Brain: No hemorrhage, mass effect or midline shift. No acute, major vascular distribution infarction identified. Patchy areas of encephalomalacia noted in the cerebellar hemispheres, right greater than left. Small lacunar infarcts noted in the left basal ganglia and zuleima. There is foci of decreased attenuation in the periventricular and subcortical white matter, likely representing chronic small vessel ischemic changes. Mild cerebral volume loss is present. No intra-axial or extra-axial fluid collection seen. Cerebral ventricles: No ventriculomegaly. Paranasal sinuses: Visualized sinuses are unremarkable. No fluid levels. Mastoid air cells: Visualized mastoid air cells are well aerated. Bones/joints: Unremarkable. No acute fracture. Soft tissues: There is swelling of the scalp in the right parietal region with small subcutaneous hematoma measuring 1.2 cm, and small layering scalp hematoma measuring up to [address]/CT head wo con* [id number] IMPRESSION: No acute intracranial abnormality.
[2021-11-04 22:26] VITALS: O2SAT 96
--- NOTE | 2021-11-04 22:47 | ECG_ITS ---
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 Measurements Intervals [place] Rate: 116 P: 66 UT: 155 QRS: 22 QRSD: 72 T: 65 QT: 346 QTc: 482 Interpretive Statements SINUS TACHYCARDIA WITH FREQUENT VENTRICULAR PREMATURE COMPLEXES POSSIBLE LEFT ATRIAL ENLARGEMENT [-0.1mV P-WAVE IN V1/V2] POSSIBLE RIGHT VENTRICULAR CONDUCTION DELAY [RSR (QR) IN V1/V2] NONSPECIFIC ST & T-WAVE ABNORMALITY ABNORMAL RHYTHM ECG Compared to ECG 06/27/2019 06:18:05 Ventricular premature complex(es) now present T-wave abnormality still present Electronically Signed On 11-06-2021 6:25:01 CDT by Radha Craig M.D. [email or web address]
--- NOTE | 2021-11-04 22:47 | P.CONIM_ITS ---
Providers/Reason For Consult Consulting Physician/Specialty*: Adama Hernadez DO/orthopedic surgery Reason for Consult*: Right displaced subcapital femoral neck fracture Requesting Physician: Dr. Vega Attending Physician: Cheryl Meza MD Primary Care Provider: Emmanuel He MD History of Present Illness History of Present Illness Edmond Calvert is a 75 year old male presents emergency department today after sustaining a ground-level fall onto his right hip. Patient states he noted immediate pain and inability to weight-bear. Patient present emergency department x-rays performed of patient found to have a right subcapital femoral neck fracture. Orthopedic surgery was consulted. Review of patient's history as well as discussion with patient is a past medical history of diabetes mellitus, hypertension as well as PAD. Denies any blood thinners although review of medical record shows aspirin 81 mg. Patient walks with a walker. Patient denies any other injuries at this time. Review of Systems General: Reports: 10 or more systems reviewed and unremarkable except in HPI and below Const: Denies: fever(s) or chills Card: Denies: chest pain or palpitations Resp: Denies: dyspnea GI: Denies: abdominal pain, nausea or vomiting Musc: Reports: joint pain and deformity Medications/Allergies Home Medications Medication Instructions Recorded Confirmed Last Taken Type hydrocodone 10 mg-acetaminophen 1 tab PO Q8H PRN Pain, Moderate 06/27/19 11/04/21 Unknown History 325 mg tablet aspirin 81 mg tablet,delayed 81 mg PO DAILY #30 tabs 06/29/19 11/04/21 Unknown Rx release magnesium oxide 400 mg (241.3 mg 400 mg PO BID #6 tabs 06/29/19 11/04/21 Unknown Rx magnesium) tablet tamsulosin 0.4 mg capsule 0.4 mg PO DAILY #30 caps 06/29/19 11/04/21 Unknown Rx azelastine 137 mcg (0.1 %) nasal 1 spray intranasal BID 11/04/21 11/04/21 Unknown History spray aerosol guaifenesin 600 mg tablet, 1,200 mg PO BID PRN Congestion 11/04/21 11/04/21 Unknown History extended release 12 hr (Mucinex) insulin glargine U-300 conc 300 20 unit SUBCUT BID 11/04/21 11/04/21 Unknown History unit/mL (1.5 mL) subcutaneous pen (Toujeo SoloStar U-300 Insulin) metformin 1,000 mg tablet 1,000 mg PO BID 11/04/21 11/04/21 Unknown History metoprolol tartrate 25 mg tablet 25 mg PO DAILY 11/04/21 11/04/21 Unknown History potassium chloride 20 mEq 20 meq PO BID 11/04/21 11/04/21 Unknown History tablet,extended release(part/cryst) Allergies Allergy/AdvReac Type Severity Reaction Status Date / Time No Known Allergies Allergy Verified 11/04/21 18:58 PFSH Acute PFSH: Medical History (Updated 11/04/21 @ 22:54 by Adama Hernadez DO) BPH (benign prostatic hyperplasia) CVA (cerebral vascular accident) Diabetes mellitus type 2 in nonobese Displaced fracture of right femoral neck Hypertension Peripheral artery disease Subdural hematoma Surgical History H/O right inguinal hernia repair S/P cholecystectomy Family History Other Cancer Diabetes Social History Smoking and tobacco status: current every day smoker Alcohol intake: never Lives independently: Yes Household members: none Vitals/I&O/Wt Last Vital Signs Temp 98.3 F 11/04/21 18:05 Pulse 95 11/04/21 19:05 Resp 17 11/04/21 19:05 BP 151/83 11/04/21 19:05 Pulse Ox 99 11/04/21 19:05 O2 Del Method 11/04/21 19:05 Weight last 48 hrs Weight 120 lb Physical Exam Narrative: Orthopedic examination: Patient has no tenderness to palpation or painful range of motion to the bilateral upper extremity shoulder elbow wrist and hands. Gross motor and sensation intact bilateral upper extremities. Radial pulses 2+ bilaterally. Examination of patient's lower extremities. Right lower extremity :patient's holding right hip in a flexed position with slight external rotation. Patient has tenderness palpation over the right hip with positive logroll and unable to actively perform straight leg raise. Patient is able to wiggle toes as well as plantarflex and dorsiflex ankle. Patient has sensation intact light touch to the SPN/DPN/tibial/saphenous/sural nerve distribution. Dry skin noted diffusely through the tibia and foot. Examination of the left lower extremity demonstrates no tenderness to palpation of the left hip normal range of motion of the left hip knee and ankle. Gross motor and sensation intact to left lower extremity. Const: COMMON NORMALS: no acute distress, average body habitus and alert HENMT: COMMON NORMALS: normocephalic HEAD & SCALP: normocephalic Resp: COMMON NORMALS: normal respiratory effort and No retractions Cardio: COMMON NORMALS: Peripheral pulses 2+ throughout PERIPHERAL PULSES: Peripheral pulses 2+ throughout Neuro: SENSORIUM/ORIENTATION: Yes alert Data Xray Ortho: My impression: X-rays of the pelvis AP lateral of the hip. Femur and knee films reviewed and demonstrate a subcapital displaced femoral neck fracture. No other acute fracture dislocation noted. A&P Assessment and plan (1) Displaced fracture of right femoral neck: Status: Acute Plan - N.p.o. at midnight -Admission to hospital by hospitalist team -Internal medicine for medical management and preoperative optimization -Hold a.m. anticoagulation -Nonweightbearing right lower extremity -Pain control -Ice as needed for comfort -Plan for surgery tomorrow for right hip hemiarthroplasty MDM: Edmond is a pleasant 75-year-old male who presents today with complaints of right hip pain. Patient found in the emergency department to have a right displaced femoral neck fracture. Orthopedic surgery was consulted. Saw and evaluated patient emergency department. History, physical exam as well as x- rays confirm diagnosis. Had detailed discussion with him about nonoperative versus operative intervention as far as the risk benefits complications alternatives to surgery. Ultimately patient elected to proceed with surgical intervention. We will have patient admitted to the hospital and undergo medical management and preoperative optimization for surgery tomorrow with plans for right hip hemiarthroplasty. Patient understands agrees with current plan. All questions answered. Coding Level of Care Code Acute Senior International Tax Manager for [facility] Fwdave Diagnoses Displaced fracture of right femoral neck S72.001A Time Spent (min) 60
[2021-11-04 23:40] VITALS: PULSE 112; RESP 20; O2SAT 96
--- NOTE | 2021-11-04 23:51 | ECG_ITS ---
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 Measurements Intervals [place] Rate: 120 P: 64 IL: 165 QRS: 19 QRSD: 74 T: 65 QT: 403 QTc: 570 Interpretive Statements SINUS TACHYCARDIA WITH FREQUENT VENTRICULAR PREMATURE COMPLEXES WITH OCCASIONAL SUPRAVENTRICULAR PREMATURE COMPLEXES POSSIBLE RIGHT VENTRICULAR CONDUCTION DELAY [RSR (QR) IN V1/V2] NONSPECIFIC ST & T-WAVE ABNORMALITY ABNORMAL RHYTHM ECG Compared to ECG 11/04/2021 22:47:45 No significant changes Electronically Signed On 11-06-2021 6:33:59 CDT by Radha Craig M.D. [id number]
[2021-11-04] MEDS: pantoprazole 40 mg SDV IVP (23:55)
[2021-11-04 23:58] VITALS: RESP 24
[2021-11-05] VITALS (10 sets, daily range): BP systolic 129–168; BP diastolic 63–84; PULSE 64–116; RESP 16–20; TEMP 36.8–38.5; O2SAT 92–99
--- NOTE | 2021-11-05 00:13 | PC.NURSE ---
i reported high temp 101.3 and high pulse 116 to nurse
--- NOTE | 2021-11-05 03:39 | ECG_ITS ---
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 Measurements Intervals [place] Rate: 113 P: 56 NC: 156 QRS: 38 QRSD: 80 T: 83 QT: 335 QTc: 461 Interpretive Statements SINUS TACHYCARDIA WITH OCCASIONAL VENTRICULAR PREMATURE COMPLEXES WITH OCCASIONAL SUPRAVENTRICULAR PREMATURE COMPLEXES POSSIBLE RIGHT VENTRICULAR CONDUCTION DELAY [RSR (QR) IN V1/V2] MODERATE ST DEPRESSION [0.05+ mV ST DEPRESSION] Compared to ECG 11/05/2021 00:00:08 ST (T wave) deviation now present T-wave abnormality no longer present Electronically Signed On 11-06-2021 6:31:39 CDT by Radha Craig M.D. [id number]
--- NOTE | 2021-11-05 04:28 | PC.NURSE ---
i reported high temp 101.3 to nurse
[2021-11-05 04:48] LABS: Basophils % 0.3 %; Eosinophils # 0.1 10^3/uL (0.0-0.8); Eosinophils % 0.7 %; Hematocrit 34.8 % (42.0-52.0); Hemoglobin 10.7 g/dL (11.7-16.6); Lymphocytes # 1.6 10^3/uL (0.8-4.8); Lymphocytes % 12.3 %; Mean Corpuscular HGB Conc 30.7 g/dL (30.0-36.0); Mean Corpuscular Hemoglobin 27.1 pg (28.0-34.0); Mean Corpuscular Volume 88.1 fl (80-94); Mean Platelet Volume 10.5 fL (7.4-10.4); Monocytes # 0.4 10^3/uL (0.2-0.9); Monocytes % 3.1 %; Neutrophils # 10.39 10^3/uL (1.8-7.7); Neutrophils % 82.7 %; Nucleated Red Blood Cells % 0 %; Platelet Count 131 10^3/cmm (130-400); Red Blood Count 3.95 10^6/uL (4.1-5.3); Red Cell Distribution Width 14.2 % (12.1-15.1); White Blood Count 12.6 10^3/uL (4.0-10.0)
[2021-11-05 05:01] LABS: INR 1.07 (0.8-1.2)
[2021-11-05 05:08] LABS: Estmated Average Glucose 174; Hemoglobin A1C 7.7 % (4.0-6.0)
[2021-11-05 05:10] LABS: Troponin(5th) Baseline 99 ng/L (0-15)
[2021-11-05 05:18] LABS: NT Pro B Type Natriuretic Pept 601 pg/mL (0-450)
[2021-11-05 05:29] LABS: Alanine Aminotransferase 14 U/L (0-41); Alkaline Phosphatase 74 U/L (40-130); Anion Gap 18.2 (5-19); Aspartate Amino Transferase 22 U/L (0-40); Blood Urea Nitrogen 14 mg/dL (8-23); C Reactive Protein 20.6 mg/L (0.0-4.9); Calcium 7.5 mg/dL (8.5-10.5); Carbon Dioxide 25 mmol/L (22-29); Chloride 101 mmol/L (98-107); Globulin 3.6 g/dL (1.3-4.6); Glucose 144 mg/dL (65-115); Osmolality Calculated 295 mOsm/kg (285-295); Potassium 3.2 mmol/L (3.5-5.1); Sodium 141 mmol/L (136-145); Total Bilirubin 1.3 mg/dL (0.15-1.2); Total Protein 6.6 g/dL (6.6-8.7)
[2021-11-05] MEDS: acetaminophen 325 mg Tablet 650 MG PO (06:01)
[2021-11-05 06:27] LABS: Glucose Point of Care 173 mg/dL (70-110)
[2021-11-05 07:44] LABS: Troponin 5 2HR 111.3 ng/L (0-15); Troponin 5 2HR Delta 12.3 ABS# (0-10)
[2021-11-05 07:44] LABS: Add Urine Microscopic? YES; Bilirubin Urine Neg (Negative); Blood Urine 2+ (Negative); Glucose Urine UA Norm (Normal); Ketones Urine 1+ (Negative); Leukocyte Esterase Urine 2+ (Negative); Nitrate Urine Negative (Negative); Protein Urine Trace (Negative); Urine Appearance Cloudy (CLEAR); Urine Color Yellow (Yellow); Urobilinogen Urine Norm (Negative); pH Urine 5 (5-7)
--- NOTE | 2021-11-05 07:46 | ECG_ITS ---
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 Measurements Intervals [place] Rate: 87 P: 67 MD: 137 QRS: 18 QRSD: 93 T: 89 QT: 385 QTc: 465 Interpretive Statements SINUS RHYTHM WITH OCCASIONAL SUPRAVENTRICULAR PREMATURE COMPLEXES POSSIBLE RIGHT VENTRICULAR CONDUCTION DELAY [RSR (QR) IN V1/V2] NONSPECIFIC ST & T-WAVE ABNORMALITY Compared to ECG 11/05/2021 03:39:00 T-wave abnormality now present Sinus tachycardia no longer present Ventricular premature complex(es) no longer present ST (T wave) deviation no longer present Electronically Signed On 11-06-2021 6:30:55 CDT by Radha Craig M.D. [id number]
--- NOTE | 2021-11-05 07:49 | USCV_ITS ---
Edmond Calvert Age: 75 Gender: M : 1945 Exam Date: 11/05/2021 08:03 Ordering Phys: Cheryl Meza MD Technologist: Dwight Hernandez [place] [facility] [place]: elevated trop level BP: 124 / 75 HR: 78 Rhythm: Sinus Technical Quality: Adequate MEASUREMENTS (Male / Female) Normal Values 2D ECHO LV Diastolic Diameter PLAX 3.4 cm 4.2 - 5.9 / 3.9 - 5.3 cm LV Systolic Diameter PLAX 2.5 cm IVS Diastolic Thickness 0.9 cm 0.6 - 1.0 / 0.6 - 0.9 cm IVS Systolic Thickness 1.1 cm LVPW Diastolic Thickness 0.9 cm 0.6 - 1.0 / 0.6 - 0.9 cm LVPW Systolic Thickness 1.3 cm LVOT Diameter 2.0 cm LV Ejection Fraction 2D Teich 54.8 % LV Ejection Fraction MOD 2C 72.8 % LV Ejection Fraction 2C AL 72.4 % LA Diameter 3.4 cm Aorta at Sinotubular Diameter 2.5 cm IVC Diameter 1.0 cm M-MODE Aortic Annulus Diameter 3.1 cm LA Ao Ratio MM 1.1 MV E Point Septal Separation 1.1 cm DOPPLER AV Peak Velocity 143.7 cm/s LVOT Peak Velocity 84.0 cm/s AV Area Cont Eq vti 2.2 cm squared AV Area Cont Eq pk 1.9 cm squared MV Area PHT 5.0 cm squared Mitral E to A Ratio 0.6 MV E' Velocity 30.5 cm/s Mitral E to MV E' Ratio 6.9 Mitral E to LV E' Lateral Ratio 6.0 Mitral E to LV E' Septal Ratio 8.3 TR Peak Velocity 259.3 cm/s TR Peak Gradient 26.9 mmHg TV Peak E Velocity 76.0 cm/s Right Atrial Pressure 8.0 mmHg Pulmonary Artery Systolic Pressu 34.9 mmHg PV Peak Velocity 88.0 cm/s FINDINGS Left Ventricle Normal left ventricular size and systolic function, EF 66 %. Mild left ventricular hypertrophy. Right Ventricle Possibly of normal size and ejection fraction Right Atrium Could not be visualized well Left Atrium Possibly of normal size Mitral Valve Thickened mitral valve. Moderate mitral annular calcification. Aortic Valve Thickened aortic valve. Moderate aortic valve calcification. Tricuspid Valve Trace to mild tricuspid valve regurgitation. Estimated pulmonary artery peak systolic pressure 35 mmHg Pulmonic Valve Mild pulmonary valve regurgitation. Pericardium Normal pericardium without effusion. Aorta Normal ascending aorta dimension. IVC Normal inferior vena cava. CONCLUSIONS Normal left ventricular size and systolic function, EF 66 %. Mild left ventricular hypertrophy. Thickened mitral valve. Moderate mitral annular calcification. Thickened aortic valve. Moderate aortic valve calcification. Trace to mild tricuspid valve regurgitation. Estimated pulmonary artery peak systolic pressure 35 mmHg. Mild pulmonary valve regurgitation. There are no intracardiac masses. There is no pericardial effusion. Technically difficult study because of the poor ultrasonic window. Compared to the study from as 06/22/2016, there may not be significant change Dr Eden Cabrera MD [facility] (Electronically Signed) Final Date: 05 November 2021 16:58 S
--- NOTE | 2021-11-05 07:49 | PC.OT ---
OT EVALUATION ORDERS RECEIVED. PATIENT ON SURGERY SCHEDULE TODAY; WILL HOLD AND AWAIT ORDERS POST SURGERY.
[2021-11-05 08:03] LABS: Bacteria Urine 1+ /hpf; Mucus Urine 1+ /hpf; Squamous Epithelial Cell Urine 0-4 /hpf (0-5); WBC Urine 25-40 /hpf (0-5)
[2021-11-05 08:04] LABS: Add Urine Culture? No
--- NOTE | 2021-11-05 10:02 | PC.CHAP ---
Pastoral Care Encounter/Spiritual Assessment Type of Contact [x] Declined information developer visit [] Patient/Family/Request visit [] Outpatient visit [] Follow-up visit [] Physician referral [] Code/Alert [] Routine visit [] Staff referral [] Actively dying [] Patient sleeping [] Family support [] [] Out of room [] Palliative care [] [] Receiving care in room [] Pre-surgical visit [] Trauma [] Long length of stay [] ICU visit [x] Other: unable to communicat Relational/Emotional Strength [] Patient feels connected with others/family/visitors/staff [] Distress [] Loneliness/isolation [] Abandonment Spirituality of Patient [] Person of Yelitza [] Attends Yarsani of their Yelitza [] Believes in Prayer [] Reads Bible or Yarsanism materials [] There are Spiritual issues to be addressed Ironer Interventions [] Prayer [] Active listening [] Non-anxious presence [] Spiritual/emotional support [] Crisis/trauma care [] Spiritual counseling [] Bereavement support [] Provided bereavement packet [] Provided Bible/devotional materials [] Provided toy/stuffed animal, coloring book to patient or family member [] Provided Communion [] Anointing/Dexter [] Salvation [] Completed spiritual assessment [] Other: Impact on Illness or Injury [] Angry [] Fearful [] Anxious [] Often cries [] Exhaustion [] Unable to work [] Unable to attend mandaeism [] Unable to walk/stand [] Unable to read [] Unable to drive [] Unable to eat/drink [] Unable to sleep [] Unable to be with family [] Patient intubated [] Other: Summary unable to communicat Time spent with patient 5mins
[2021-11-05] MEDS: HYDROmorphone 1 mg/mL INJ 1 mL 0.5 MG IVP ×2 (10:24→20:26)
[2021-11-05] MEDS: cefTRIAXone 1,000 MG in sodium chloride 0.9% (plus) 50 ML 100 MG IV (10:25)
[2021-11-05 10:59] LABS: Troponin 5 6HR Delta 10.4 ng/L (0-12)
[2021-11-05 11:00] LABS: Troponin 5 6HR 109.4 ng/L (0-15)
[2021-11-05 11:41] LABS: Glucose Point of Care 125 mg/dL (70-110)
--- NOTE | 2021-11-05 12:44 | P.PN_ITS ---
Subjective Subjective: This morning I notified surgeon to postpone his surgery patient has been spiking fever, troponin worsened, requested stat echo I was notified by speech therapist that he has no family at all, he has right- sided weakness from previous stroke and 10 days ago he suffered from another stroke with dysarthria and left-sided weakness He has been cantankerous avoiding coming to the hospital he would now go to any penitentiary I requested speech therapy Will resume diet after speech therapy today Surgery postponed Seem like he has UTI we will start ceftriaxone Vitals/I&O/Wt Last Vital Signs Temp 99.8 F H 11/05/21 10:57 Pulse 100 11/05/21 10:57 Resp 18 11/05/21 10:57 BP 154/82 11/05/21 10:57 Pulse Ox 93 11/05/21 10:57 O2 Del Method 11/05/21 10:57 O2 Flow Rate 2 11/05/21 08:37 Weight last 48 hrs Weight 54.431 kg Physical Exam Narrative: Patient is awake and alert Dysarthria Left-sided weakness Unkept appearance Extremely dry skin Abdomen soft S1, S2 sinus tachycardia Hemodynamically stable Afebrile No signs of meningitis or encephalitis No abdominal pain He has been using urinal Data : 11/05/21 04:35 11/05/21 04:35 A&P Assessment and plan (1) Displaced fracture of right femoral neck: Status: Acute (2) Fall: Status: Acute (3) Closed hip fracture: Status: Acute (4) BPH (benign prostatic hyperplasia): Status: Acute (5) Diabetes mellitus type 2 in nonobese: Status: Acute (6) CVA (cerebral vascular accident): Status: Acute (7) Peripheral artery disease: Status: Acute (8) Hypertension: Status: Acute Plan Febrile events related to UTI Started ceftriaxone Will request urine culture Blood culture Troponin leak however patient is asymptomatic no active shortness of breath or chest pain Requested stat echo Will start therapeutic Lovenox Postpone surgery We will follow-up with echo report Currently he is on metoprolol succinate Surgeon has been updated Bowel regimen along opioids Patient lives alone He is estranged from his family Our speech therapist knows him very well Patient has right-sided overall weakness from previous stroke 10 days ago suffered from another stroke causing left-sided weakness and dysarthria Patient is refusing to go to penitentiary Start dysphagia level 3 diet Will do PT only after hip surgery not needed for now He can continue occupational therapy and speech therapy for the time being Sliding scale for diabetes check A1c level DNR/DNI Attestations Medical Necessity Statement*: Continue medical management Time Spent in Patient Care: 40 Coding Level of Care Code Acute Co Founder And Ceo for Chg Fwd Diagnoses Displaced fracture of right femoral neck S72.001A Fall W19.XXXA Closed hip fracture S72.009A BPH (benign prostatic hyperplasia) N40.0 Diabetes mellitus type 2 in nonobese E11.9 CVA (cerebral vascular accident) I63.9 Peripheral artery disease I73.9 Hypertension I10
--- NOTE | 2021-11-05 13:40 | PC.NURSE ---
pt refused posadas cath placement at this time. Notified Dr. Fitch, pt is okay with placing it on day of surgery.
--- NOTE | 2021-11-05 15:56 | P.PN_ITS ---
Subjective Subjective: Patient seen and evaluated this morning. Patient did have fever. Has been n.p.o. since midnight. He is resting comfortably at bedside. Continues complain of right hip pain. Did receive a call from hospitalist and patient's troponin labs have continued to elevate as well as he spiked fevers. At this point time he feels patient would be best to withhold the surgery and the better optimize medically. At this point time given the fevers as well as troponins I do feel would be best to hold on patient surgery today. Patient was educated on this and he understands and agrees to proceed. Plan will be to make patient n.p.o. at midnight and work with hospitalist to see if patient would be amendable and optimized for surgery. Understand with a fever and UTI do worry about the chances of periprosthetic joint infection however do understand that patient's decreased mobility and delay in surgical replacement of his right hip fracture also sets patient for poor potential outcomes. We had discussion with him about this and we will reassess in the morning. Vitals/I&O/Wt Last Vital Signs Temp 99.8 F H 11/05/21 10:57 Pulse 100 11/05/21 10:57 Resp 18 11/05/21 10:57 BP 154/82 11/05/21 10:57 Pulse Ox 93 11/05/21 10:57 O2 Del Method 11/05/21 10:57 O2 Flow Rate 2 11/05/21 08:37 Weight last 48 hrs Weight 120 lb Physical Exam Narrative: Orthopedic examination: Patient's right lower extremity shortened and externally rotated. Positive logroll. Pain to palpation right hip. Able to wiggle toes plantarflex sonia siflex ankle. Sensation intact light touch the right lower extremity. Distal pulses palpable. Data : 11/05/21 04:35 11/05/21 04:35 A&P Assessment and plan (1) Displaced fracture of right femoral neck: Status: Acute Plan - Patient may have diet today -Surgery canceled secondary to spiking fevers and increased troponin -Plan to make patient n.p.o. at midnight tonight -Possible surgery tomorrow if patient optimized and cleared by internal medicine for right hip hemiarthroplasty -Internal medicine on board for medical management and preoperative optimization -On antibiotics for UTI -Nonweightbearing right lower extremity -PT/OT Attestations Medical Necessity Statement*: Patient has displaced right femoral neck fracture will require operative intervention. Will require multiple nights of hospitalization for surgery as well as rehab. Coding Level of Care Code Acute Aviation Electrical Technician for [facility] Fwd Diagnoses Displaced fracture of right femoral neck S72.001A
[2021-11-05 18:05] LABS: Glucose Point of Care 127 mg/dL (70-110)
[2021-11-05] MEDS: ondansetron 2 mg/ML SDV 2 mL 4 MG IVP (20:26)
[2021-11-05 21:16] LABS: Glucose Point of Care 124 mg/dL (70-110)
[2021-11-05] MEDS: pantoprazole 40 mg SDV IVP (22:23)
[2021-11-06] VITALS (34 sets, daily range): BP systolic 113–185; BP diastolic 53–97; PULSE 79–113; RESP 12–22; TEMP 36.2–37.2; O2SAT 90–100
[2021-11-06] MEDS: HYDROmorphone 1 mg/mL INJ 1 mL 0.5 MG IVP ×5 (00:30→19:26)
[2021-11-06 05:47] LABS: Basophils # 0.1 10^3/uL (0.0-0.1); Basophils % 0.5 %; Eosinophils # 0.1 10^3/uL (0.0-0.8); Eosinophils % 0.8 %; Hematocrit 33.4 % (42.0-52.0); Hemoglobin 10.5 g/dL (11.7-16.6); Lymphocytes # 1.4 10^3/uL (0.8-4.8); Lymphocytes % 10.9 %; Mean Corpuscular HGB Conc 31.4 g/dL (30.0-36.0); Mean Corpuscular Hemoglobin 27.3 pg (28.0-34.0); Monocytes # 0.4 10^3/uL (0.2-0.9); Neutrophils # 11.12 10^3/uL (1.8-7.7); Nucleated Red Blood Cells % 0 %; Platelet Count 121 10^3/cmm (130-400); Red Blood Count 3.84 10^6/uL (4.1-5.3); Red Cell Distribution Width 14.3 % (12.1-15.1); White Blood Count 13.2 10^3/uL (4.0-10.0)
[2021-11-06 05:58] LABS: D Dimer 11.34 ug/mIFEU (0-0.59)
[2021-11-06 06:01] LABS: Anion Gap 16.9 (5-19); Blood Urea Nitrogen 15 mg/dL (8-23); Calcium 7.3 mg/dL (8.5-10.5); Carbon Dioxide 26 mmol/L (22-29); Chloride 100 mmol/L (98-107); Glucose 125 mg/dL (65-115); Osmolality Calculated 292 mOsm/kg (285-295); Sodium 140 mmol/L (136-145)
[2021-11-06 06:09] LABS: Potassium 2.9 mmol/L (3.5-5.1)
[2021-11-06 06:17] LABS: Glucose Point of Care 126 mg/dL (70-110)
--- NOTE | 2021-11-06 09:21 | P.PN_ITS ---
Subjective Subjective: Plan for surgical intervention today He has not received his endocrine medication He has been afebrile since yesterday Leukocytosis stable at 13 Patient was asking for an extra dose of opioid Agreeable to go to [place] [facility] Dysphagia ground diet was recommended Hemoglobin 10.5 High D-dimer, will request venous Doppler, We will replenish his potassium aggressively today Vitals/I&O/Wt Last Vital Signs Temp 98.1 F 11/06/21 07:12 Pulse 98 11/06/21 08:39 Resp 18 11/06/21 08:39 BP 137/70 11/06/21 07:12 Pulse Ox 97 11/06/21 08:39 O2 Del Method 11/06/21 08:39 O2 Flow Rate 2 11/06/21 08:39 11/05/21 11/06/21 11/06/21 22:59 06:59 14:59 Intake Total 390 / 390 120 / 510 Output Total 200 / 200 Balance 390 / 390 -80 / 310 Weight last 48 hrs Weight 54.431 kg Physical Exam Narrative: Patient is laying supine Has significant weakness of his extremities Dry skin Abdomen soft No active audible stridor or wheezing Currently on 2 L nasal cannula Awake and alert Able to talk Significant facial droop Data : 11/06/21 04:58 11/06/21 04:58 Micro: Microbiology 11/06/21 04:58 Blood Culture - Preliminary Blood SPECIMEN COLLECTED 11/06/21 04:55 Blood Culture - Preliminary Blood SPECIMEN COLLECTED A&P Assessment and plan (1) Displaced fracture of right femoral neck: Status: Acute (2) Fall: Status: Acute (3) Closed hip fracture: Status: Acute (4) BPH (benign prostatic hyperplasia): Status: Acute (5) Diabetes mellitus type 2 in nonobese: Status: Acute (6) CVA (cerebral vascular accident): Status: Acute (7) Peripheral artery disease: Status: Acute (8) Hypertension: Status: Acute (9) UTI (urinary tract infection): Status: Acute Plan Hip fracture, plan for surgical intervention today Hypokalemia: I will give him 80 mEq IV which will take about 6 to 8 hours Holding anticoagulating agent, he is n.p.o. Speech therapist recommended dysphagia ground diet Patient has had recurrent stroke Is high has high D-dimer Requested venous Doppler, will rule out PE with CTA chest Troponin leak NSTEMI Echo did not show wall motion abnormality, preserved action fraction Rule out PE Underlying cancer? Hold his Lovenox for his surgery No active chest pain or shortness of breath Acute hypoxic requiring 2 L directly related to hypoventilation Wean oxygen to room air Patient will need [place] [facility] placement, he is estranged from his family He has had stroke, no requiring surgical intervention for hip surgery Is unsafe to return home DNR/DNI Patient does seem to have some insight, he has capacity to make decision for himself Preop clearance Echo is preserved, no wall motion abnormality, No need of cardiac stress test Patient RCRI class II risk for perioperative mortality morbidity, considering urgent nature of his surgery no further testing will be required UTI: Continue ceftriaxone, nonseptic, Attestations Medical Necessity Statement*: Surgery today Time Spent in Patient Care: 35 Coding Level of Care Code Acute Press Box Custodian for g Fwd Diagnoses Displaced fracture of right femoral neck S72.001A Fall W19.XXXA Closed hip fracture S72.009A BPH (benign prostatic hyperplasia) N40.0 Diabetes mellitus type 2 in nonobese E11.9 CVA (cerebral vascular accident) I63.9 Peripheral artery disease I73.9 Hypertension I10 UTI (urinary tract infection) N39.0
--- NOTE | 2021-11-06 09:21 | USCV_ITS ---
Edmond Calvert Age: 75 Gender: M : 1945 Exam Date: 11/06/2021 10:20 Ordering Phys: Cheryl Meza MD Technologist: ADRIÁN Exam Location: [facility] – [place] Indication: STROKE, SLIGHT LEG SWELLING HISTORY: Lower extremity swelling. PROCEDURES: Venous duplex imaging was performed in bilateral lower extremities. The following venous structures were evaluated: common femoral vein, profunda vein, proximal portion of the greater saphenous vein, superficial femoral vein, and the popliteal vein. In addition, the posterior tibial and peroneal trunk were evaluated. FINDINGS: No evidence of DVT seen in any vessel visualized at this time. Examination was technically limited due to patient being contracted position. Right Popv, Left PTV, and Left Peroneal V not seen due to patient's contracted position CONCLUSIONS No evidence of right lower extremity DVT. No evidence of left lower extremity DVT. Technically limited due to positioning. Ben Eisenberg MD (Electronically Signed) Final Date: 06 November 2021 16:12 S
--- NOTE | 2021-11-06 09:28 | P.PN_ITS ---
Subjective Subjective: Patient seen and examined this morning. No acute issues overnight. Cardiac work-up per hospitalist team shows patient stable. Patient afebrile. Patient does appear to have a UTI however will not prolong surgery given this as patient will benefit from early ambulation and weightbearing as well as pain control. Once again detailed the plan for surgery today with patient he understands and agrees with current plan. All questions answered. Detailed the risk benefits complications alternatives to surgery and nonsurgical treatment options patient elects to proceed with surgery. Risks include but are not limited to make a better make it worse, blood clot, stroke, heart attack, loss of life or limb, neurovascular injury, infection Vitals/I&O/Wt Last Vital Signs Temp 98.1 F 11/06/21 07:12 Pulse 98 11/06/21 08:39 Resp 18 11/06/21 08:39 BP 137/70 11/06/21 07:12 Pulse Ox 97 11/06/21 08:39 O2 Del Method 11/06/21 08:39 O2 Flow Rate 2 11/06/21 08:39 11/05/21 11/06/21 11/06/21 22:59 06:59 14:59 Intake Total 390 / 390 120 / 510 Output Total 200 / 200 Balance 390 / 390 -80 / 310 Weight last 48 hrs Weight 120 lb Physical Exam Narrative: Patient resting comfortably in bed. He is able to wake up and follow commands. States ready for surgery. Patient is able to wiggle toes, plantarflex dorsiflex ankle. Sensation tact light touch of the right lower e xtremity of the tibial, saphenous, sural nerve distribution as well as SPN DPN. Patient right lower extremity distal pulses palpable. Right lower extremity warm well perfused. Tenderness to palpation right hip with positive logroll. Data : 11/06/21 04:58 11/06/21 04:58 Micro: Microbiology 11/06/21 04:58 Blood Culture - Preliminary Blood SPECIMEN COLLECTED 11/06/21 04:55 Blood Culture - Preliminary Blood SPECIMEN COLLECTED A&P Assessment and plan (1) Displaced fracture of right femoral neck: Status: Acute Plan Orthopedic recommendations: Patient's been n.p.o. since midnight Patient cardiac work-up stable and cleared by internal medicine We will proceed with surgery today for right hip hemiarthroplasty Hold a.m. anticoagulation A.m. labs reviewed Nonweightbearing right lower extremity PT/OT Internal medicine on board for medical optimization and preoperative clearance Attestations Medical Necessity Statement*: Pt will require multiple days of hospitalization given patient's hip fracture surgery and postoperative rehab. Coding Level of Care Code Acute Magnetic Resonance Imaging Coordinator for [facility] Diagnoses Displaced fracture of right femoral neck S72.001A
[2021-11-06] MEDS: potassium chloride premix 100 ML 25 MEQ IV (09:39)
--- NOTE | 2021-11-06 09:51 | ANES.PREANE2 ---
Pre-Anesthetic Assessment Height/Weight: Height 1.68 m Weight 54.431 kg Temp Pulse Resp BP Pulse Ox O2 Del Method O2 Flow Rate 98.1 F 98 18 137/70 97 2 11/06/21 07:12 11/06/21 08:39 11/06/21 08:39 11/06/21 07:12 11/06/21 08:39 11/06/21 08:39 11/06/21 08:39 Preop Diagnosis: acute hip fx right Operation Date: 11/05/21 11:00 Proposed Procedures p Hemiarthroplasty Hip(Right) - Adama Maricarmen, DO Operation Date: 11/06/21 12:00 Proposed Procedures p Hemiarthroplasty Hip(Right) - Adama Clare, DO Familial anesthetic complications: none Was Beta Edwin taken within 24 hours: Yes Was Clonidine taken within 24 hours: N/A Last intake: Intake Last Liquid Date 11/03/21 Last Solid Date 11/03/21 Social Tobacco and No alcohol Exam alert, oriented x 3 and regular rate & rhythm Non labored respirations Airway Submandibular: within normal limits Cervical ROM: within normal limits Mallampati: Class II Dentition: full Pulmonary Denies COPD hx 11/04/21 CXR XR/XR chest 1V portable [id number] IMPRESSION: 1. Minimal left largely upper lobe ground-glass airspace opacity may reflect an early infectious process. 2. Mild cardiomegaly. ? CV/HEM Anemia, Hypertension and Peripheral Vascular Disease Lives independently with home health Uses walker TTE 11/05/21 CONCLUSIONS ?Normal left ventricular size and systolic function, EF 66 %. ?Mild left ventricular hypertrophy. ?Thickened mitral valve. Moderate mitral annular calcification. ?Thickened aortic valve. Moderate aortic valve calcification. ?Trace to mild? tricuspid valve regurgitation.? Estimated ?pulmonary artery peak systolic pressure 35 mmHg. ?Mild pulmonary valve regurgitation. ?There are no intracardiac masses. ?There is no pericardial effusion. ?Technically difficult study because of the poor ultrasonic ?window.? Compared to the study from as 06/22/2016, there may not ?be significant change EKG 11/05/21 Interpretive Statements SINUS RHYTHM WITH OCCASIONAL SUPRAVENTRICULAR PREMATURE COMPLEXES POSSIBLE RIGHT VENTRICULAR CONDUCTION DELAY? [RSR (QR) IN V1/V2] NONSPECIFIC ST & T-WAVE ABNORMALITY Compared to ECG 11/05/2021 03:39:00 T-wave abnormality now present Sinus tachycardia no longer present Ventricular premature complex(es) no longer present ST (T wave) deviation no longer present Electronically Signed On 11-06-2021 6:30:55 CDT by Radha Craig M.D. [email or web address] BPH K 2.9 Hepatic None reported GI Gastroesophageal Reflux Disease Metabolic Diabetes Mellitus [facility] [place] Acute right hip fx Neuropsych Cerebrovascular Accident (Right sided weakness, dysarthria, aphasia persist ) CT 11/04/21 CT/CT head wo con* [id number] IMPRESSION: No acute intracranial abnormality. Anesthetic Plan ASA status: 3 Anesthesia: Anesthesia Evaluation and General Other: Patient offered spinal or general. Before discussing further patient said he wanted general saying I do not trust spinal. We discussed risk and benefits of general anesthesia including PONV, sore throat (sometimes severe), corneal abrasion, positioning and peripheral nerve injuries, life threatening allergic reaction, post operative ICU admission requiring prolonged intubation, aspiration, stroke, heart attack, , and rare incidences of recall. Patient consents to proceed with general anesthesia. Risk of > 500 ml blood loss (7ml/kg in children): No Medications/Allergies Home Medications Medication Instructions Recorded Confirmed Last Taken Type hydrocodone 10 mg-acetaminophen 1 tab PO Q8H PRN Pain, Moderate 06/27/19 11/04/21 Unknown History 325 mg tablet aspirin 81 mg tablet,delayed 81 mg PO DAILY #30 tabs 06/29/19 11/04/21 Unknown Rx release magnesium oxide 400 mg (241.3 mg 400 mg PO BID #6 tabs 06/29/19 11/04/21 Unknown Rx magnesium) tablet tamsulosin 0.4 mg capsule 0.4 mg PO DAILY #30 caps 06/29/19 11/04/21 Unknown Rx azelastine 137 mcg (0.1 %) nasal 1 spray intranasal BID 11/04/21 11/04/21 Unknown History spray aerosol guaifenesin 600 mg tablet, 1,200 mg PO BID PRN Congestion 11/04/21 11/04/21 Unknown History extended release 12 hr (Mucinex) insulin glargine U-300 conc 300 20 unit SUBCUT BID 11/04/21 11/04/21 Unknown History unit/mL (1.5 mL) subcutaneous pen ([place] SoloStar U-300 Insulin) metformin 1,000 mg tablet 1,000 mg PO BID 11/04/21 11/04/21 Unknown History metoprolol tartrate 25 mg tablet 25 mg PO DAILY 11/04/21 11/04/21 Unknown History potassium chloride 20 mEq 20 meq PO BID 11/04/21 11/04/21 Unknown History tablet,extended release(part/cryst) Allergies Allergy/AdvReac Type Severity Reaction Status Date / Time No Known Allergies Allergy Verified 11/04/21 18:58 Current Medications Generic Name Dose Route Start Last Admin Trade Name Freq PRN Reason Stop Dose Admin Acetaminophen 650 mg 11/04/21 21:52 11/05/21 06:01 Acetaminophen 325 Mg Tablet PO 650 mg Q6H PRN Administration Mild/Mod Pain Or Temp >/= 101 Aspirin 81 mg 11/05/21 09:00 11/05/21 10:00 Aspirin 81 Mg Ec Tablet PO Not Given DAILY [facility] Enoxaparin Sodium 50 mg 11/05/21 13:00 11/05/21 13:42 Enoxaparin 60 Mg/0.6 Ml Syringe SUBCUT Not Given Q12H [facility] Hydromorphone HCl 0.5 mg 11/04/21 21:52 11/06/21 05:02 Hydromorphone 1 Mg/Ml Inj 1 Ml IVP 0.5 mg Q4H PRN Administration PAIN Ceftriaxone Sodium 1,000 mg/ 50 mls @ 100 mls/hr 11/05/21 09:30 11/05/21 17:42 Sodium Chloride IV Infused Q24H [facility] Infusion Protocol Potassium Chloride 100 mls @ 25 mls/hr 11/06/21 06:46 11/06/21 09:39 K-Kenny IV 11/06/21 10:45 25 mls/hr ONCE ONE Administration Insulin Human Lispro 0 unit 11/05/21 08:00 11/06/21 07:47 Insulin Lispro 100 Unit/1 Ml SUBCUT Not Given TIDWM [facility] Protocol Metoprolol Succinate 25 mg 11/05/21 09:00 11/05/21 10:00 Metoprolol Succinate Er (24 Hr) 25 Mg Tablet PO Not Given DAILY [facility] Ondansetron HCl 4 mg 11/04/21 21:52 11/05/21 20:26 Ondansetron 2 Mg/Ml Sdv 2 Ml IVP 4 mg Q8H PRN Administration vomiting, or N/V if npo Pantoprazole Sodium 40 mg 11/04/21 22:00 11/05/21 22:23 Pantoprazole 40 Mg Sdv IVP 40 mg Q24H [facility] Administration Tamsulosin HCl 0.4 mg 11/05/21 09:00 11/05/21 10:01 Tamsulosin 0.4 Mg Capsule PO Not Given DAILY [facility] PFSH Anesthesia Medical History BPH (benign prostatic hyperplasia) CVA (cerebral vascular accident) Diabetes mellitus type 2 in nonobese Displaced fracture of right femoral neck Hypertension Peripheral artery disease Subdural hematoma Surgical History H/O right inguinal hernia repair S/P cholecystectomy Family History Other Cancer Diabetes Social History Smoking and tobacco status: current every day smoker Alcohol intake: never Lives independently: Yes Household members: none Data Anesthesia : 11/06/21 04:58 11/06/21 04:58 Short CBC 11/05/21 11/06/21 Range/Units 04:35 04:58 WBC 12.6 H 13.2 H (4.0-10.0) 10^3/uL Hgb 10.7 L 10.5 L (11.7-16.6) g/dL Hct 34.8 L 33.4 L (42.0-52.0) % MCV 88.1 87.0 (80-94) fl Plt Count 131 121 L (130-400) 10^3/cmm Neut % (Auto) 82.7 84.0 % Neut # (Auto) 10.39 H 11.12 H (1.8-7.7) 10^3/uL BMP 11/05/21 11/06/21 04:35 04:58 Sodium 141 140 Potassium 3.2 L 2.9 L Chloride 101 100 Carbon Dioxide 25 26 BUN 14 15 Creatinine 1.0 1.0 Glucose 144 H 125 H Calcium 7.5 L 7.3 L Cardiac Enzymes 11/05/21 11/05/21 11/05/21 Range/Units 04:35 04:35 06:32 Troponin T Baseline 99 H (0-15) ng/L Troponin T 120 Minute 111.3 H (0-15) ng/L Delta Troponin T 12.3 H* (0-10) ABS# Troponin T Hi Sens 6Hr (0-15) ng/L Troponin T Hi Sens 6Hr Delta (0-12) ng/L NT-Pro-B Natriuret Pep 601 H (0-450) pg/mL 11/05/21 Range/Units 10:11 Troponin T Baseline (0-15) ng/L Troponin T 120 Minute (0-15) ng/L Delta Troponin T (0-10) ABS# Troponin T Hi Sens 6Hr 109.4 H (0-15) ng/L Troponin T Hi Sens 6Hr Delta 10.4 (0-12) ng/L NT-Pro-B Natriuret Pep (0-450) pg/mL Liver Function 11/05/21 Range/Units 04:35 Total Bilirubin 1.3 H (0.15-1.2) mg/dL AST 22 (0-40) U/L ALT 14 (0-41) U/L Alkaline Phosphatase 74 (40-130) U/L Albumin 3.0 L (3.5-5.2) g/dL Urine 11/05/21 Range/Units 06:10 Urine Color Yellow (Yellow) Urine Appearance Cloudy (CLEAR) Urine pH 5 (5-7) Ur Specific [place] 1.020 (1.005-1.030) Urine Protein Trace (Negative) Urine Glucose (UA) Norm (Normal) Urine Ketones 1+ H (Negative) Urine Nitrate Negative (Negative) Urine Bilirubin Neg (Negative) Ur Leukocyte Esterase 2+ H (Negative) Urine RBC 10-15 H (0-2) /hpf Urine WBC 25-40 H (0-5) /hpf COVID Results 11/05/21 00:23 Coronavirus 229E (PCR) Cancelled SARS-CoV-2 (PCR) Cancelled Coags 11/05/21 11/05/21 11/06/21 04:35 04:35 04:58 PT 14.20 INR 1.07 D-Dimer 11.34 H C-Reactive Protein 20.6 H Microbiology 11/06/21 04:58 Blood Culture - Preliminary Blood SPECIMEN COLLECTED 11/06/21 04:55 Blood Culture - Preliminary Blood SPECIMEN COLLECTED Cardiac Studies: Echocardiogram 11/05/21
[2021-11-06] MEDS: sodium chloride 0.9% 1,000 ML 30 ML IV (12:12)
[2021-11-06] MEDS: cefTRIAXone 1,000 MG in sodium chloride 0.9% (plus) 50 ML 50 MG IV (12:19)
--- NOTE | 2021-11-06 12:27 | W.PM.OPSUD ---
Surgery/Procedure H&P Update DATE OF PROCEDURE: November 06, 2021 DATE H&P PERFORMED: 11/04/21 CHANGES TO PREVIOUS DOCUMENTATION: Patient did have elevated troponins as well as fever yesterday surgery was canceled. internal medicine team work-up negative for acute cardiac conditions. Hospitalist agrees patient has optimized to proceed for surgical intervention. Patient is on antibiotics for UTI at this point time would recommend proceeding with surgery versus delaying his surgery and affecting patient's outcomes just for UTI. Did express to him the risk benefits complications alternatives to surgical treatment intervention. Risks include but are not limited to make a better make it worse, blood clot, heart attack stroke, loss of life or limb, pulmonary issues secondary to cementation, infection. Patient understands risks and agrees to proceed with surgery. PREOP DIAGNOSIS: acute hip fx right PRIMARY INDICATION FOR PROCEDURE: Displaced right femoral neck fracture PLANNED PROCEDURE: Operation Date: 11/05/21 11:00 Proposed Procedures p Hemiarthroplasty Hip(Right) - Adama Hernadez DO Operation Date: 11/06/21 12:00 Proposed Procedures p Hemiarthroplasty Hip(Right) - Adama Hernadez DO
[2021-11-06 12:35] LABS: Glucose Point of Care 128 mg/dL (70-110)
--- NOTE | 2021-11-06 14:07 | XR_ITS ---
WS: [id number] Pelvis, AP view, lateral view right hip, 11/06/2021 Clinical Data: post-op him tarm Comparison: Pelvis and right hip, 11/04/2021. Findings: There is a hemiarthroplasty of the right hip repairing a right subcapital fracture. The medullary por tion of the prosthesis is cemented within the proximal femoral medullary canal. There are lateral sub cutaneous surgical sutures over the operative site. The pelvis and left hip show no fractures. XR/XR pelvis 1-2V* [id number] Impression: Right hip hemiarthroplasty.
--- NOTE | 2021-11-06 14:10 | PM.OP2 ---
Brief Operative Note Date of procedure: 11/06/21 Pre-op diagnosis: Displaced displaced right femoral neck fracture Post-op diagnosis: same Procedure Done: Cemented hip hemiarthroplasty Surgeon: Adama Hernadez Estimated blood loss (mL): 150 Complications: None Post-op Plan: Patient taken to PACU in stable condition. Patient will receive appropriate return to floor orders including DVT prophylaxis, pain control, postoperative antibiotics, weightbearing as tolerated to the right lower extremity, PT/OT. Will have x-rays of the right hip in PACU. 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
--- NOTE | 2021-11-06 14:12 | P.OP_ITS ---
Operative Report Date of procedure: November 06, 2021 Pre-op diagnosis: Preop Diagnosis acute hip fx right Post-op diagnosis: Displaced right femoral neck fracture Post-op findings: See procedure note Procedure done: Right hip hemiarthroplasty, cemented Implants: [place] Accolade C stem size 3 132 degrees 46 mm big ball, 28 mm +4 mm small ball bipolar implant 8 mm distal cement centralizer Specimens removed/disposition: Fractured femoral head and neck removed and disposed not sent for pathology as no suspicion for pathology Pathology: None Surgeon: Adama Hernadez DO Estimated blood loss (mL): 150 None IV fluids: see anesthesia note Complications: None Findings: see operative procedure note Condition: stable Disposition: floor Brief History: Patient presented to emergency department after sustaining ground-level fall to right hip with right hip pain. Found to have displaced right femoral neck fracture. Patient was seen evaluated in the emergency department by myself. Patient physical exam exam findings as well as radiographic imaging confirm diagnosis. Patient was then admitted to the hospital by hospitalist team for medical management as well as preoperative optimization. Patient surgery was delayed for 1 day as he had spiked fevers and increased troponins. Patient does have a UTI and being treated by the primary team. Patient was optimized for 1 more day echocardiogram performed in no acute cardiac condition. Patient cleared by internal medicine. Had detailed discussion with patient about risk benefits complications alternatives of surgery and patient elects proceed with surgical intervention. Risk include but are not limited to make a better make it worse, blood clot, heart attack, stroke, loss of life or limb, infection, pulmonary conditions secondary to cementation. Patient understand risks and agrees to proceed with surgical intervention of right hip hemiarthroplasty cemented. Procedure: Patient was seen evaluate consent was reviewed with patient and all questions were answered. Right hip was then signed by myself. Patient was then evaluated by the anesthesia department. Patient was then taken to the operative suite and underwent general anesthesia on his hospital bed and was subsequently then transferred to the operative table. Patient was placed on a pegboard and placed in lateral decubitus position with the right hip up. Patient was then appropriately secured and all bony prominences were well-padded. Next patient's right hip was then cleaned with alcohol and then his right lower extremity was then prepped and draped in standard orthopedic fashion. Final timeout was performed. Patient received appropriate preoperative antibiotics Standard posterior lateral incision was performed to the hip. Sharp scalpel excision through skin subcutaneous tissue. Utilized Cherry elevator to mobilize the tensor fascia jose and IT band. Once identified this was split mid substance along the line of the greater trochanter with electrocautery. This was then bluntly split proximally to split the Glut Max fascia. Next Hohmann was then placed underneath the abductors. The leg was placed on internal rotation. A full-thickness sleeve starting at the piriformis insertion with electrocautery was then made along the greater trochanter right to the level of the lesser trochanter. 1 full thick sleeve of capsule and external rotators was then used was tagged with Aida and draped in the sciatic nerve was protected throughout the case. Fracture hematoma identified and suctioned. Patient had a subcapital femoral neck fracture a new neck cut needed to be made. Homans were placed above and below the femoral neck. 1 fingerbreadth above the lesser trochanter roughly 15 mm of neck was left and marked into the saddle of the superior neck. Homans were placed an oscillating saw was used. Femoral neck was removed corkscrew was then inserted into the femoral head and this was removed. At this point the capsule was held with David and curved Hohmann was then placed on the anterior wall to evaluate the acetabulum. No significant arthritis was noted. Labrum was left intact. Thoroughly irrigation performed with no loose bodies noted. Next attention towards to femoral preparation. Femoral elevator was then placed. [place] and electrocautery was used to clear out the shoulder to obtain appropriate lateralization. Box osteotome was used to lateralize our starting point. Next a canal finder was inserted with no resistance. We then subsequently used a rattail rasp to lateralize as well as lateralizing reamers. Next we marked our appropriate anteversion parallel to the posterior cortex. Next we sequentially broached up to a size 3 which was the appropriate stem. This was mildly subsided and a calcar reamer used. Next standard offset and neck length was then placed and reduced atraumatically. At this point this appeared to be the correct stem and would potentially need just a small amount of neck length added which we will trial with our final stem. Hip was then subsequently dislocated ball and neck removed femoral stem removed. Appropriate cementation technique was then performed. The canal was thoroughly irrigated and cleaned with brush. David Accolade C femur size 3 was then opened in appropriate cement plug was then measured to have roughly 2 to 3 cm of cement mantle distal to the centralizer. Canal was once again thoroughly irrigated and then tampon was used to dry canal. Once cement was ready a cement gun was used to inject the cement. Next cement was then pressurized and anesthesia was notified and patient was optimized with O2 saturation. Femoral stem was then impacted into appropriate position position of depth as well as maintaining her anteversion brian that was made prior to her broaching sequence. This was then held until the cement was allowed to cure once this was hardened we trialed a standard size neck at this point there was slight shortness in length and slight instability. We added a +4 mm head with excellent suction fit as well as stability with both flexion and internal rotation as well as appropriate leg lengths. At this point this was our final bipolar head and neck length. This was then final implants were opened and the +4 mm bipolar head was then impacted into place acetabulum was then checked once more and irrigated prior to reduction. Reduction was performed atraumatically and excellent stability was noted as well as leg lengths. Pulse lavage was then used to thoroughly irrigate the wound bed. Next we utilized #5 Ethibond suture for capsular closure which was then placed and secured through bone tunnels of the greater trochanter. Wound bed thoroughly irrigated again. #2 Ethibond was then used to tack the Glutenex fascia and IT band. Then a #1 strata fix was then used to close fascia with watertight closure. 2 oh strata fix closed deep and subcutaneous tissue in the 3 oh strata fix was used for the subcutaneous tissue and skin was closed with анна. Wound was then covered with a Silverlon d ressing. Hip was then placed in an abduction pillow. Patient was then awakened from anesthesia and taken to PACU in stable condition. Disposition: Patient taken to PACU in stable condition. Patient will be posterior hip precautions. Patient should continue perioperative antibiotics which includes treatment of his UTI. Patient have DVT prophylaxis, weightbearing as tolerated to the right lower extremity. PT/OT. Pain control. Medical management by the hospitalist team.
--- NOTE | 2021-11-06 14:41 | PM.PACU ---
PACU note Narrative: Patient seen and evaluated in PACU. Patient still sedated but able to arouse and he will follow commands. Patient is able to wiggle his toes he will plantarflex and dorsiflex his ankle. He not sensation intact to light touch to the right lower extremity at the SPN/DPN/tibial/sural, saphenous nerve distribution. Distal pulses are palpable. His dressings clean dry and intact. Compartments soft and compressible. Patient will return to the floor with appropriate pain control, DVT prophylaxis posterior hip precautions, weightbearing as tolerated to the right lower extremity abduction pillow in place while bed, PT/OT perioperative antibiotics. Exam: other (See narrative of above) Disposition: back to floor
[2021-11-06] MEDS: fentaNYL 50 mcg/mL INJ 2mL IVP (14:58)
[2021-11-06] MEDS: acetaminophen 1,000 MG/100 ML PIGGYBACK 400 MG IV (15:11)
--- NOTE | 2021-11-06 15:29 | ANE.PACU2 ---
Inpatient post-anesthesia follow up: Airway intact: Yes Vital signs: Temperature 97.1 F Pulse Rate 98 Respiratory Rate 18 Blood Pressure 142/61 Pulse Oximetry 92 Oxygen Delivery Me thod Nasal Cannula Oxygen Flow Rate 3 Fraction of Inspir ed Oxygen Hydration adequate: Yes Nausea and vomiting: No Pain level: 6 Mental status: Baseline
--- NOTE | 2021-11-06 15:34 | SUR.PHASEI ---
Upon arrival to PACU patients O2 sats were dropping andhe was placed on simple mask. Suction was used to assist in clearing airway when coughing. Patient is now on nasal cannula and maintaining sat at baseline to preop. pain was treated and has improved, family notified by phone and report called to RN on 2S. Patient ready for transfer to floor
--- NOTE | 2021-11-06 15:49 | ANE.PACU2 ---
Inpatient post-anesthesia follow up: Airway intact: Yes Vital signs: Temperature 97.7 F Pulse Rate 90 Respiratory Rate 19 Blood Pressure 135/66 Pulse Oximetry 92 Oxygen Delivery Me thod Nasal Cannula Oxygen Flow Rate 3 Fraction of Inspir ed Oxygen Hydration adequate: Yes Nausea and vomiting: No Pain level: 5 Mental status: Baseline
[2021-11-06] MEDS: ipratropium-albuterol 3 mL Neb INHALATION ×2 (15:57→21:08)
[2021-11-06 16:45] LABS: Glucose Point of Care 195 mg/dL (70-110)
[2021-11-06] MEDS: lidocaine 1% 5 ML in potassium chloride premix 100 ML 25 ML IV (17:27)
[2021-11-06 21:09] LABS: Glucose Point of Care 233 mg/dL (70-110)
[2021-11-06] MEDS: chlorhexidine gluconate 0.12% Btl 473 mL 30 ML MUCOUS MEM (23:21)
[2021-11-06] MEDS: acetaminophen 500 mg Tablet 1000 MG PO (23:21)
[2021-11-06] MEDS: pantoprazole 40 mg SDV IVP (23:21)
[2021-11-07] VITALS (12 sets, daily range): BP systolic 110–160; BP diastolic 61–80; PULSE 68–84; RESP 16–18; TEMP 36.4–37.1; O2SAT 87–100
[2021-11-07 00:37] LABS: Quest SARS-CoV-2 RNA NOT DETECTED (NOT DETECTED)
[2021-11-07] MEDS: HYDROmorphone 1 mg/mL INJ 1 mL 0.5 MG IVP ×2 (02:33→09:02)
[2021-11-07 06:15] LABS: Glucose Point of Care 180 mg/dL (70-110)
--- NOTE | 2021-11-07 07:42 | P.PN_ITS ---
Subjective Subjective: Patient seen and examined this morning. Patient states he is doing well. States his right hip feels better since surgery. Patient currently on 3 L nasal cannula. His vital signs are stable and afebrile. Abduction pillow in place. No other issues at this time. Vitals/I&O/Wt Last Vital Signs Temp 98.7 F 11/07/21 04:00 Pulse 75 11/07/21 07:30 Resp 18 11/07/21 07:30 BP 128/67 11/07/21 04:00 Pulse Ox 100 11/07/21 07:30 O2 Del Method 11/07/21 07:30 O2 Flow Rate 3 11/07/21 07:30 11/06/21 11/07/21 11/07/21 22:59 06:59 14:59 Intake Total 1340 / 2390 600 / 2990 Output Total 250 / 250 500 / 750 Balance 1090 / 2140 100 / 2240 Physical Exam Narrative: Examination right lower extremity dressing on and in place is clean dry and intact. Compartments are soft and compressible. Right lower extremity is warm well perfused. Normal postoperative swelling to the right hip. Patient is able to wiggle toes, plantarflex and dorsiflex his ankle. Endorses sensation intact light touch of the right lower extremity at the SPN/DPN/tibial/saphenous/ sural nerve distribution. Distal pulses palpable. Abduction pillow on in place Data : 11/06/21 04:58 11/06/21 04:58 Micro: Microbiology 11/06/21 04:58 Blood Culture - Preliminary Blood NEGATIVE TO DATE 11/06/21 04:55 Blood Culture - Preliminary Blood NEGATIVE TO DATE Xray Ortho: My impression: Postop AP pelvis and crosstable lateral of the right hip demonstrates interval placement of cemented right hip hemiarthroplasty in appropriate alignment and stable. No acute fracture or dislocation noted. A&P Assessment and plan (1) Displaced fracture of right femoral neck: Status: Acute Plan - Weightbearing as tolerated to the right lower extremity -Maintain right posterior hip precautions -Abduction pillow while in bed -Ice as needed -Dressing may stay on in place and only be change if saturated -Postoperative antibiotics -DVT prophylaxis -PT/OT -Internal medicine as primary and appreciate their medical management -A.m. labs are pending Attestations Medical Necessity Statement*: Patient sustained right hip fracture requiring surgical intervention. Will need postoperative monitoring and therapy Coding Level of Care Code Acute Conveyor System Dispatcher for Chg Fwd Diagnoses Displaced fracture of right femoral neck S72.001A Time Spent (min) 30
--- NOTE | 2021-11-07 09:54 | PC.SOCIAL ---
IMM update IMM Updated with patient and family at bedside. Verbalized understanding. Copy Pg 2 provided. Initialled, dated, timed, and placed in chart
[2021-11-07] MEDS: calcium carb-vit d 600mg/400unit 1 Tablet 1 EACH PO ×2 (11:11→17:30)
[2021-11-07] MEDS: tamsulosin 0.4 mg Capsule PO (11:11)
[2021-11-07] MEDS: aspirin 81 mg EC Tablet PO (11:12)
[2021-11-07] MEDS: multivitamin therapeutic Tablet 1 TAB PO (11:12)
[2021-11-07] MEDS: sennosides-docusate Tablet 2 TAB PO ×2 (11:12→17:30)
[2021-11-07] MEDS: cholecalciferol (vitamin D3) 1,000 unit Tablet 1000 UNIT PO (11:13)
[2021-11-07] MEDS: HYDROcodone-acetaminophen 5-325 mg Tablet 1 TAB PO ×3 (11:13→21:40)
[2021-11-07] MEDS: metoprolol succinate ER (24 HR) 25 mg Tablet PO (11:13)
[2021-11-07] MEDS: iron polysaccharide complex 150 mg Capsule PO ×2 (11:14→17:30)
[2021-11-07] MEDS: cefTRIAXone 1,000 MG in sodium chloride 0.9% (plus) 50 ML 100 MG IV (11:14)
[2021-11-07 11:26] LABS: Glucose Point of Care 203 mg/dL (70-110)
[2021-11-07] MEDS: insulin lispro 100 unit/1 mL SUBCUT (12:16)
--- NOTE | 2021-11-07 12:42 | P.PN_ITS ---
Subjective Subjective: Postop day 1 For postop complications Patient was asking for pain for his neck pain He is willing to go to a rehab Patient did not allow me to talk to his family they are not in the state Will start dysphagia level 2 ground diet Vitals/I&O/Wt Last Vital Signs Temp 97.5 F L 11/07/21 11:32 Pulse 68 11/07/21 11:32 Resp 16 11/07/21 11:32 BP 140/66 11/07/21 11:32 Pulse Ox 91 11/07/21 11:32 O2 Del Method 11/07/21 11:32 O2 Flow Rate 3 11/07/21 07:30 11/06/21 11/07/21 11/07/21 22:59 06:59 14:59 Intake Total 1340 / 2390 600 / 2990 120 / 120 Output Total 250 / 250 500 / 750 Balance 1090 / 2140 100 / 2240 120 / 120 Physical Exam Narrative: Patient is awake and alert Unkept appearance Dehydrated No signs of vascular compromise lower extremity Onychomycosis Feet are warm bilaterally Seborrheic keratosis Abdomen soft S1, S2 Dysphagia Left-sided weakness Facial droop Dysarthria Data : 11/06/21 04:58 11/06/21 04:58 Micro: Microbiology 11/05/21 06:10 Urine Culture - Final Urine,Voided 11/06/21 04:58 Blood Culture - Preliminary Blood NEGATIVE TO DATE 11/06/21 04:55 Blood Culture - Preliminary Blood NEGATIVE TO DATE A&P Assessment and plan (1) UTI (urinary tract infection): Status: Acute (2) Displaced fracture of right femoral neck: Status: Acute (3) Fall: Status: Acute (4) Closed hip fracture: Status: Acute (5) Diabetes mellitus type 2 in nonobese: Status: Acute (6) CVA (cerebral vascular accident): Status: Acute (7) Peripheral artery disease: Status: Acute (8) Hypertension: Status: Acute (9) NSTEMI (non-ST elevated myocardial infarction): Status: Acute Plan 75-year-old male who is estranged from his family, are speech therapist knows him well, she told me that there is no family member in touch with him anymore, he suffered from a stroke which caused right-sided weakness and this time about 10 days ago he suffered from another stroke which caused left-sided weakness with worsening of his dysarthria, speech therapist recommended dysphagia ground level 2 diet, on presentation he was spiking fever with worsening of troponin, requested stat echo and start him on antibiotics, surgery was postponed to next day status for surgical intervention Hip fracture status post surgical intervention Postop day 1 No postop complication He has been afebrile Opioids for pain management Bowel regimen Subacute CVA Dysarthria, left-sided weakness, Recurrent stroke Rhythm has been sinus, Will need event monitor at the time of discharge Will need jail placement Continue dual antiplatelet therapy for at least 1 month NSTEMI Echo did not show wall motion abnormality EF is preserved Did okay perioperatively We will do cardiac stress test on Tuesday Peripheral arterial disease no active pain We will do arterial Doppler Currently on antiplatelet therapy Patient did not allow me to talk to the family DNR/DNI Dysphagia diet DVT prophylaxis on board Therapeutic Lovenox has been switched to DVT prophylaxis UTI: Continue ceftriaxone Cultures negative so far No frequent episodes of fever anymore since admission addition of antibiotics Attestations Medical Necessity Statement*: Awaiting placement to [facility] Time Spent in Patient Care: 30 Coding Level of Care Code Acute It Risk And Assurance Manager for [facility] Fwd Diagnoses UTI (urinary tract infection) N39.0 Displaced fracture of right femoral neck S72.001A Fall W19.XXXA Closed hip fracture S72.009A Diabetes mellitus type 2 in nonobese E11.9 CVA (cerebral vascular accident) I63.9 Peripheral artery disease I73.9 Hypertension I10 NSTEMI (non-ST elevated myocardial infarction) I21.4
--- NOTE | 2021-11-07 12:50 | USR_ITS ---
PROCEDURE INFORMATION: Exam: US Duplex Lower Extremity Arteries Exam date and time: 11/07/2021 2:27 PM Age: 75 years old Clinical indication: Screening exam; Pad; Additional info: Peripheral vascular disease TECHNIQUE: Imaging protocol: Real-time ultrasound scan of the arteries of the bilateral lower extremities with 2-D vega scale, color Doppler flow and spectral waveform analysis. Images documented and saved. COMPARISON: US renal BI with PV bladder 06/28/2019 12:41 PM FINDINGS: Right external iliac artery: No occlusion or significant stenosis. Normal waveform. Right common femoral artery: No occlusion or significant stenosis. Normal waveform. Right superficial femoral artery: Occlusion of the proximal and midportion of the artery. Poststenotic monophasic waveform in the distal artery with a peak systolic velocity of 22.1 cm/s. Right popliteal artery: Poststenotic monophasic waveform with a peak systolic velocity of 22.4 cm/s. Right calf/foot arteries: Monophasic poststenotic waveforms with decreased peak systolic velocities in the right posterior tibial artery and dorsalis pedis artery. Left external iliac artery: No occlusion or significant stenosis. Normal waveform. Left common femoral artery: No occlusion or significant stenosis. Normal waveform. Left superficial femoral artery: No occlusion or significant stenosis. Normal waveform. Left popliteal artery: Poststenotic monophasic waveform with a peak systolic velocity of 25.0 cm/s. Left calf/foot arteries: Poststenotic waveform in the left dorsalis pedis artery with a peak systolic velocity of 21.7 cm/s. Poststenotic waveform in the left posterior tibial artery with severely decreased peak systolic velocity of 11.8 cm/s. US/[place] [id number] IMPRESSION: 1. Occlusion of the proximal and mid right superficial femoral artery with reconstituted flow distally. 2. Poststenotic waveforms with decreased peak systolic velocities in the right lower extremity, distal to the occluded superficial femoral artery. 3. Hemodynamically significant stenosis in the distal left superficial femoral or proximal popliteal artery. There are poststenotic waveforms within the left popliteal and infrapopliteal arteries.
[2021-11-07] MEDS: lisinopril 2.5 mg Tablet PO (15:41)
[2021-11-07 17:03] LABS: Glucose Point of Care 147 mg/dL (70-110)
[2021-11-07 19:03] LABS: Basophils % 0.2 %; Eosinophils # 0.1 10^3/uL (0.0-0.8); Eosinophils % 0.7 %; Hematocrit 28.6 % (42.0-52.0); Hemoglobin 9.7 g/dL (11.7-16.6); Lymphocytes # 1.6 10^3/uL (0.8-4.8); Lymphocytes % 18.7 %; Mean Corpuscular HGB Conc 33.9 g/dL (30.0-36.0); Mean Corpuscular Hemoglobin 27.5 pg (28.0-34.0); Monocytes # 0.6 10^3/uL (0.2-0.9); Monocytes % 6.8 %; Neutrophils # 6.33 10^3/uL (1.8-7.7); Neutrophils % 73.4 %; Nucleated Red Blood Cells % 0 %; Platelet Count 135 10^3/cmm (130-400); Red Blood Count 3.53 10^6/uL (4.1-5.3); Red Cell Distribution Width 14.1 % (12.1-15.1); White Blood Count 8.6 10^3/uL (4.0-10.0)
[2021-11-07 19:29] LABS: Anion Gap 14.9 (5-19); Blood Urea Nitrogen 25 mg/dL (8-23); Carbon Dioxide 25 mmol/L (22-29); Chloride 106 mmol/L (98-107); Glucose 102 mg/dL (65-115); Osmolality Calculated 299 mOsm/kg (285-295); Potassium 3.9 mmol/L (3.5-5.1); Sodium 142 mmol/L (136-145)
[2021-11-07 20:16] LABS: Glucose Point of Care 134 mg/dL (70-110)
[2021-11-07] MEDS: chlorhexidine gluconate 0.12% Btl 473 mL 30 ML MUCOUS MEM (21:05)
[2021-11-07] MEDS: pantoprazole 40 mg SDV IVP (21:05)
[2021-11-07] MEDS: atorvastatin 40 mg Tablet PO (21:05)
[2021-11-08] VITALS (10 sets, daily range): BP systolic 108–147; BP diastolic 56–74; PULSE 76–96; RESP 16–20; TEMP 36.5–37.6; O2SAT 87–94
[2021-11-08] MEDS: HYDROcodone-acetaminophen 5-325 mg Tablet 1 TAB PO ×4 (04:22→18:19)
[2021-11-08 06:15] LABS: Glucose Point of Care 194 mg/dL (70-110)
[2021-11-08] MEDS: sennosides-docusate Tablet 2 TAB PO ×2 (08:43→18:18)
[2021-11-08] MEDS: clopidogrel 75 mg Tablet PO (08:43)
[2021-11-08] MEDS: lisinopril 2.5 mg Tablet PO (08:43)
[2021-11-08] MEDS: tamsulosin 0.4 mg Capsule PO (08:43)
[2021-11-08] MEDS: metoprolol succinate ER (24 HR) 25 mg Tablet PO (08:43)
[2021-11-08] MEDS: calcium carb-vit d 600mg/400unit 1 Tablet 1 EACH PO ×2 (08:43→18:17)
[2021-11-08] MEDS: aspirin 81 mg EC Tablet PO (08:44)
[2021-11-08] MEDS: cholecalciferol (vitamin D3) 1,000 unit Tablet 1000 UNIT PO (08:45)
[2021-11-08] MEDS: enoxaparin 40 mg/0.4 mL Syringe SUBCUT (08:45)
[2021-11-08] MEDS: insulin lispro 100 unit/1 mL SUBCUT (08:45)
[2021-11-08] MEDS: multivitamin therapeutic Tablet 1 TAB PO (08:46)
[2021-11-08] MEDS: cefTRIAXone 1,000 MG in sodium chloride 0.9% (plus) 50 ML 100 MG IV (08:47)
--- NOTE | 2021-11-08 09:56 | P.PN_ITS ---
Subjective Subjective: Patient seen and examined this morning. Patient states his right hip pain is doing well. Seen with therapy in the room and therapy states he walked down the [place] yesterday. Patient dates that pain is much improved since surgery. No other complaints at this time. Vital signs are stable and afe brile. Hemoglobin stable. Vitals/I&O/Wt Last Vital Signs Temp 98.7 F 11/08/21 08:00 Pulse 90 11/08/21 08:00 Resp 16 11/08/21 08:00 BP 108/56 11/08/21 08:00 Pulse Ox 91 11/08/21 08:00 O2 Del Method 11/08/21 08:00 O2 Flow Rate 3 11/07/21 20:00 11/07/21 11/08/21 11/08/21 22:59 06:59 14:59 Intake Total 625 / 1155 320 / 1475 Output Total 250 / 250 200 / 450 Balance 375 / 905 120 / 1025 Physical Exam Narrative: Examination of the right hip demonstrates dressings clean dry and intact no signs of saturation., Patient's right lower extremity is warm and well-perfused. Distal pulses palpable. Patient is able to wiggle toes plantarflex dorsiflex ankle. Patient has sensation tact light touch to the right lower extremity at the SPN/DPN/sural/tibial/saphenous nerve distribution. Patient's compartments are soft and compressible. Data : 11/07/21 18:56 11/07/21 18:56 Micro: Microbiology 11/05/21 06:10 Urine Culture - Final Urine,Voided 11/06/21 04:58 Blood Culture - Preliminary Blood NEGATIVE TO DATE 11/06/21 04:55 Blood Culture - Preliminary Blood NEGATIVE TO DATE A&P Assessment and plan (1) Displaced fracture of right femoral neck: Status: Acute Plan Orthopedic recommendations: DVT prophylaxis?Lovenox Pain control Internal medicine on board is primary and appreciate medical management Patient on antibiotics for UTI Weightbearing as tolerated to the right lower extremity Keep dressing on and in place unless saturated PT/OT Follow-up with the orthopedic office in [address] Hernadez Patient progressing well postoperatively no further orthopedic surgical intervention required. At this point patient stable from an orthopedic standpoint for discharge. Orthopedic surgery team will sign off patient at this time and follow peripherally. If there is any questions pertaining to patient's care feel free to contact myself (Dr. Hernadez). Otherwise patient should be seen for follow-up in 2 weeks in the office for incision check with staple removal. Attestations Medical Necessity Statement*: Patient sustained right hip fracture. Requiring surgery with postoperative follow-up and rehab Coding Level of Care Code Acute Scalp Treatment Specialist for [facility] Diagnoses Displaced fracture of right femoral neck S72.001A Time Spent (min) 30
--- NOTE | 2021-11-08 10:07 | PC.OT ---
OT treatment attempted this am. Patient was alert though voiced he was not going to do anything . He states he had a rough night and was not feeling good . Therapist provided increased encouragement for EOB or in bed activities in which patient declined. Will attempts tx again tomorrow. Bo Harrington, OTR/L
[2021-11-08 12:10] LABS: Glucose Point of Care 179 mg/dL (70-110)
--- NOTE | 2021-11-08 14:39 | PM.PN ---
Subjective Subjective: Patient is endorsing pain and stating that his pain was not well controlled last night He is on dysphagia diet as per speech therapist Will need detention placement most likely on Tuesday Orthopedics signed off, follow-up with them in 2 weeks No recurrent febrile episodes for his UTI No signs of sepsis No postop complications Vitals/I&O/Wt Last Vital Signs Temp 98.6 F 11/08/21 12:00 Pulse 96 11/08/21 12:00 Resp 17 11/08/21 12:00 BP 147/67 11/08/21 12:00 Pulse Ox 91 11/08/21 12:00 O2 Del Method 11/08/21 12:00 O2 Flow Rate 3 11/07/21 20:00 11/07/21 11/08/21 11/08/21 22:59 06:59 14:59 Intake Total 625 / 1155 320 / 1475 Output Total 250 / 250 200 / 450 Balance 375 / 905 120 / 1025 Physical Exam Narrative: Patient is laying flat Dehydrated Malnourished Poor pulses of foot bilaterally Patient looks cachectic and malnourished Right-sided weakness is old and left-sided weakness is new with recent stroke Dysarthria positive Abdomen soft Hemodynamically stable Able to communicate No new focal deficit Data : 11/07/21 18:56 11/07/21 18:56 Micro: Microbiology 11/05/21 06:10 Urine Culture - Final Urine,Voided A&P Assessment and plan (1) NSTEMI (non-ST elevated myocardial infarction): Status: Acute (2) UTI (urinary tract infection): Status: Acute (3) Displaced fracture of right femoral neck: Status: Acute (4) Fall: Status: Acute (5) Closed hip fracture: Status: Acute (6) BPH (benign prostatic hyperplasia): Status: Acute (7) Diabetes mellitus type 2 in nonobese: Status: Acute (8) CVA (cerebral vascular accident): Status: Acute (9) Peripheral artery disease: Status: Acute (10) Hypertension: Status: Acute (11) Peripheral arterial disease: Status: Acute Plan Hospital course 75-year-old male who is estranged from his family, has right-sided weakness from previous stroke, had a new stroke about 2 weeks ago which caused left-sided weakness and dysarthria, speech therapist knows him very well and told us about his social dynamics, patient did not allow me to update his family he does have good insight and capacity to make decision, came in after a fall, orthopedics was consulted for hip fracture, his surgery was postponed for 24 hours as he started spiking fever and troponin was trending up he was diagnosed with NSTEMI echo did not show wall motion abnormality, patient is not agreeable for any intervention, during his hospitalization his arterial scan also showed significant stenosis left superficial femoral and proximal popliteal artery, patient is reluctant and very noncompliant does not want any intervention However he has agreed to get the treatment for his hip and go to detention this time Hip fracture after sustaining a fall Patient is estranged from his family Will need detention placement Noncompliant Optimize his pain medications Bowel regimen added No postop complications NSTEMI Medical management Patient does not want any surgical intervention He was given therapeutic Lovenox for about 30 hours Echo did not show wall motion abnormality Continue aspirin and Plavix for at least 1 month Significant stenosis noted on arterial duplex of lower extremity Patient is not allowing us to draw his labs I am highly doubt he will allow us to do a PTT with heparin drip hence we will go ahead and do Lovenox every 12 hours In case he changes his mind then I will update cardiology for vascular intervention UTI Currently on antibiotics, afebrile No signs of sepsis Urine output is low because of poor p.o. intake Creatinine is normal Social dynamics Estranged from family, did not allow me to call his family at all Noncompliant Have capacity make decision for himself Agreeable to go to detention If he allows for surgical intervention then I will call cardiology for his vascular intervention for now continuing Lovenox DNR/DNI Dysphagia ground level 2 diet as per speech therapy Daily PT Attestations Medical Necessity Statement*: Awaiting detention placement Time Spent in Patient Care: 30 Coding Level of Care Code Acute Music Adapter for [facility] Fwd Diagnoses NSTEMI (non-ST elevated myocardial infarction) I21.4 UTI (urinary tract infection) N39.0 Displaced fracture of right femoral neck S72.001A Fall W19.XXXA Closed hip fracture S72.009A BPH (benign prostatic hyperplasia) N40.0 Diabetes mellitus type 2 in nonobese E11.9 CVA (cerebral vascular accident) I63.9 Peripheral artery disease I73.9 Hypertension I10 Peripheral arterial disease I73.9
[2021-11-08 17:08] LABS: Glucose Point of Care 239 mg/dL (70-110)
[2021-11-08] MEDS: iron polysaccharide complex 150 mg Capsule PO (18:18)
[2021-11-08] MEDS: atorvastatin 40 mg Tablet PO (20:54)
[2021-11-08] MEDS: chlorhexidine gluconate 0.12% Btl 473 mL 30 ML MUCOUS MEM (20:55)
[2021-11-08 21:30] LABS: Glucose Point of Care 151 mg/dL (70-110)
[2021-11-09] VITALS (10 sets, daily range): BP systolic 117–157; BP diastolic 63–82; PULSE 74–98; RESP 16–18; TEMP 36.5–37.3; O2SAT 93–100
[2021-11-09] MEDS: HYDROcodone-acetaminophen 5-325 mg Tablet 1 TAB PO ×2 (05:56→17:30)
[2021-11-09 06:42] LABS: Glucose Point of Care 170 mg/dL (70-110)
[2021-11-09 06:50] LABS: Basophils % 0.4 %; Eosinophils # 0.1 10^3/uL (0.0-0.8); Eosinophils % 1.1 %; Hematocrit 33.3 % (42.0-52.0); Hemoglobin 10.4 g/dL (11.7-16.6); Lymphocytes # 1.9 10^3/uL (0.8-4.8); Lymphocytes % 18.9 %; Mean Corpuscular HGB Conc 31.2 g/dL (30.0-36.0); Mean Corpuscular Hemoglobin 27.8 pg (28.0-34.0); Mean Platelet Volume 11.1 fL (7.4-10.4); Monocytes # 0.5 10^3/uL (0.2-0.9); Monocytes % 5.2 %; Neutrophils # 7.47 10^3/uL (1.8-7.7); Neutrophils % 74.1 %; Nucleated Red Blood Cells % 0 %; Platelet Count 184 10^3/cmm (130-400); Red Blood Count 3.74 10^6/uL (4.1-5.3); Red Cell Distribution Width 14.4 % (12.1-15.1); White Blood Count 10.1 10^3/uL (4.0-10.0)
[2021-11-09 07:15] LABS: Anion Gap 14.6 (5-19); Blood Urea Nitrogen 21 mg/dL (8-23); Calcium 8.3 mg/dL (8.5-10.5); Carbon Dioxide 26 mmol/L (22-29); Chloride 103 mmol/L (98-107); Glucose 173 mg/dL (65-115); Osmolality Calculated 297 mOsm/kg (285-295); Potassium 3.6 mmol/L (3.5-5.1); Sodium 140 mmol/L (136-145)
[2021-11-09] MEDS: multivitamin therapeutic Tablet 1 TAB PO (09:15)
[2021-11-09] MEDS: insulin lispro 100 unit/1 mL SUBCUT ×2 (09:15→17:34)
[2021-11-09] MEDS: sennosides-docusate Tablet 2 TAB PO ×2 (09:16→17:30)
[2021-11-09] MEDS: calcium carb-vit d 600mg/400unit 1 Tablet 1 EACH PO ×2 (09:16→17:30)
[2021-11-09] MEDS: lisinopril 2.5 mg Tablet PO (09:16)
[2021-11-09] MEDS: iron polysaccharide complex 150 mg Capsule PO ×2 (09:16→17:30)
[2021-11-09] MEDS: aspirin 81 mg EC Tablet PO (09:17)
[2021-11-09] MEDS: cholecalciferol (vitamin D3) 1,000 unit Tablet 1000 UNIT PO (09:17)
[2021-11-09] MEDS: clopidogrel 75 mg Tablet PO (09:17)
[2021-11-09] MEDS: metoprolol succinate ER (24 HR) 25 mg Tablet PO (09:18)
[2021-11-09] MEDS: tamsulosin 0.4 mg Capsule PO (09:20)
[2021-11-09] MEDS: cefTRIAXone 1,000 MG in sodium chloride 0.9% (plus) 50 ML 100 MG IV (09:20)
[2021-11-09] MEDS: mupirocin oint 22 gm 1 APPLIC NASAL ×2 (09:23→17:34)
[2021-11-09 12:00] LABS: Glucose Point of Care 109 mg/dL (70-110)
--- NOTE | 2021-11-09 13:19 | PC.SOCIAL ---
IMM update IMM updated with patient. Verbalized an understanding. Copy Pg 2 provided. Initialled, dated, timed, and placed in chart.
--- NOTE | 2021-11-09 14:50 | PM.PN ---
Subjective Subjective: Denies pain or discomfort. Denies chest pain or pressure. Denies trouble breathing. Denies any pain in his legs. He is working with case management with regards to arrangements for SNF. Vitals/I&O/Wt Last Vital Signs Temp 98.1 F 11/09/21 12:00 Pulse 84 11/09/21 12:00 Resp 16 11/09/21 12:00 BP 157/82 11/09/21 12:00 Pulse Ox 100 11/09/21 12:00 O2 Del Method 11/09/21 12:00 O2 Flow Rate 4 11/09/21 08:53 11/08/21 11/09/21 11/09/21 22:59 06:59 14:59 Intake Total 120 / 170 50 / 50 Output Total 250 / 650 250 / 250 Balance 120 / -230 -250 / -480 -200 / -200 Physical Exam Narrative: Communicates by typing on a tablet Const: COMMON NORMALS: patient oriented x3 and alert GENERAL APPEARANCE: cooperative ORIENTATION/CONSCIOUSNESS: Yes awake HENMT: COMMON NORMALS: oropharynx normal Neck/C-Spine: COMMON NORMALS: no JVD Resp: COMMON NORMALS: normal respiratory effort and clear to auscultation bilaterally AUSCULTATION: clear to auscultation bilaterally Cardio: COMMON NORMALS: no JVD, regular rhythm, S1 normal heart sound present, S2 normal heart sound present and No murmurs present (Cardio) RHYTHM: regular rhythm HEART SOUNDS: S1 normal heart sound present and S2 normal heart sound present GI: COMMON NORMALS: Normal to inspection, nondistended, normoactive bowel sounds present, Soft to palpation and non-tender PALPATION: Yes Soft to palpation Extremity: COMMON NORMALS: no joint enlargement and no pedal edema Neuro: COMMON NORMALS: patient oriented x3 and moves all extremities SENSORIUM/ORIENTATION: Yes alert Skin: COMMON NORMALS: no rashes or lesions noted GENERAL SKIN EXAM: no rashes or lesions noted OTHER: Chronic stasis changes, darkening of skin over bilateral lower extremities Data : 11/09/21 06:19 11/09/21 06:19 A&P Assessment and plan (1) Displaced fracture of right femoral neck: Status post repair. Hemoglobin remained steady at 10.4. Continue Lovenox. PT. Arrangements underway for rehabilitation at SNF after discharge. Status: Acute (2) NSTEMI (non-ST elevated myocardial infarction): Continue aspirin, Plavix, beta-radha, statin. For now also on Lovenox. Status: Acute (3) UTI (urinary tract infection): Continue course with ceftriaxone Status: Acute (4) Fall: Status: Acute (5) Closed hip fracture: Status: Acute (6) BPH (benign prostatic hyperplasia): Status: Acute (7) Diabetes mellitus type 2 in nonobese: Status: Acute (8) CVA (cerebral vascular accident): Status: Acute (9) Peripheral artery disease: Status: Acute (10) Hypertension: Status: Acute Plan Significant stenosis noted on arterial duplex of lower extremity: No pain or any complaints with regards to his feet. Follow-up symptoms. Outpatient referral if he will follow-up. Social dynamics Estranged from family, did not allow me to call his family at all Noncompliant Have capacity make decision for himself Agreeable to go to detention DNR/DNI Dysphagia ground level 2 diet as per speech therapy Daily PT Attestations Medical Necessity Statement*: Continue admission for assessment management after hip fracture and repair, NSTEMI, and gentleman with PAD, treatment of UTI, continued therapy and mobilization, arrangements for post hospitalization rehabilitation at SNF. Coding Level of Care Code Acute Semiconductor Packages Tester for [facility] Fwd Exam Comprehensive Diagnoses Displaced fracture of right femoral neck S72.001A NSTEMI (non-ST elevated myocardial infarction) I21.4 UTI (urinary tract infection) N39.0 Fall W19.XXXA Closed hip fracture S72.009A BPH (benign prostatic hyperplasia) N40.0 Diabetes mellitus type 2 in nonobese E11.9 CVA (cerebral vascular accident) I63.9 Peripheral artery disease I73.9 Hypertension I10
[2021-11-09 17:14] LABS: Glucose Point of Care 165 mg/dL (70-110)
[2021-11-09 20:44] LABS: Glucose Point of Care 88 mg/dL (70-110)
[2021-11-09] MEDS: atorvastatin 40 mg Tablet PO (20:49)
[2021-11-10] VITALS (12 sets, daily range): BP systolic 111–176; BP diastolic 60–83; PULSE 70–105; RESP 16–20; TEMP 36.6–37.2; O2SAT 94–99
[2021-11-10] MEDS: HYDROcodone-acetaminophen 5-325 mg Tablet 1 TAB PO ×6 (00:43→23:41)
[2021-11-10 03:08] LABS: Basophils % 0.3 %; Eosinophils # 0.2 10^3/uL (0.0-0.8); Eosinophils % 1.9 %; Hemoglobin 10.2 g/dL (11.7-16.6); Lymphocytes # 2.7 10^3/uL (0.8-4.8); Lymphocytes % 26.6 %; Mean Corpuscular HGB Conc 30.9 g/dL (30.0-36.0); Mean Corpuscular Hemoglobin 27.2 pg (28.0-34.0); Mean Platelet Volume 11.5 fL (7.4-10.4); Monocytes # 0.5 10^3/uL (0.2-0.9); Neutrophils # 6.62 10^3/uL (1.8-7.7); Neutrophils % 65.7 %; Nucleated Red Blood Cells % 0 %; Platelet Count 184 10^3/cmm (130-400); Red Blood Count 3.75 10^6/uL (4.1-5.3); Red Cell Distribution Width 14.5 % (12.1-15.1); White Blood Count 10.1 10^3/uL (4.0-10.0)
[2021-11-10 03:29] LABS: Anion Gap 11.1 (5-19); Blood Urea Nitrogen 20 mg/dL (8-23); Calcium 8.2 mg/dL (8.5-10.5); Carbon Dioxide 30 mmol/L (22-29); Chloride 100 mmol/L (98-107); Glucose 171 mg/dL (65-115); Osmolality Calculated 293 mOsm/kg (285-295); Potassium 3.1 mmol/L (3.5-5.1); Sodium 138 mmol/L (136-145)
[2021-11-10 06:48] LABS: Glucose Point of Care 164 mg/dL (70-110)
--- NOTE | 2021-11-10 09:24 | NM_ITS ---
WS: [id number] NUCLEAR MEDICINE LUNG VENTILATION AND PERFUSION CLINICAL INFORMATION: Poss PE TECHNIQUE: Ventilation/perfusion lung scan with mCi technetium 99m DTPA. COMPARISON: Radiograph 2021 FINDINGS: Diffuse patchy heterogeneous radiotracer activity on the perfusion images. Similar-appearing patchy r adiotracer uptake on the ventilatory images with central deposition along the bronchi. Heterogeneous activity due to emphysematous changes. Numerous matched ventilation/perfusion defects. No mismatched or lobar defects. NM/NM pul vent and perfus* [id number] IMPRESSION: 1. Low probability for pulmonary embolus.
[2021-11-10] MEDS: cefTRIAXone 1,000 MG in sodium chloride 0.9% (plus) 50 ML 100 MG IV (09:40)
[2021-11-10] MEDS: tamsulosin 0.4 mg Capsule PO (09:40)
[2021-11-10] MEDS: metoprolol succinate ER (24 HR) 25 mg Tablet PO (09:41)
[2021-11-10] MEDS: calcium carb-vit d 600mg/400unit 1 Tablet 1 EACH PO ×2 (09:41→17:28)
[2021-11-10] MEDS: sennosides-docusate Tablet 2 TAB PO ×2 (09:41→17:29)
[2021-11-10] MEDS: iron polysaccharide complex 150 mg Capsule PO ×2 (09:42→17:29)
[2021-11-10] MEDS: multivitamin therapeutic Tablet 1 TAB PO (09:42)
[2021-11-10] MEDS: clopidogrel 75 mg Tablet PO (09:42)
[2021-11-10] MEDS: lisinopril 2.5 mg Tablet PO (09:42)
[2021-11-10] MEDS: cholecalciferol (vitamin D3) 1,000 unit Tablet 1000 UNIT PO (09:42)
[2021-11-10] MEDS: insulin lispro 100 unit/1 mL SUBCUT ×2 (09:43→17:29)
[2021-11-10] MEDS: aspirin 81 mg EC Tablet PO (10:30)
[2021-11-10] MEDS: mupirocin oint 22 gm 1 APPLIC NASAL ×2 (10:30→18:12)
[2021-11-10 12:10] LABS: Glucose Point of Care 116 mg/dL (70-110)
[2021-11-10 12:29] LABS: Blood Urine 3+ (Negative); Glucose Urine UA Norm (Normal); Ketones Urine 1+ (Negative); Protein Urine 1+ (Negative); Urine Appearance Cloudy (CLEAR); Urine Color Yellow (Yellow); pH Urine 7 (5-7)
[2021-11-10 12:30] LABS: Add Urine Microscopic? YES; Bacteria Urine 1+ /hpf; Bilirubin Urine Neg (Negative); Leukocyte Esterase Urine 2+ (Negative); Nitrate Urine Negative (Negative); RBC Urine TOO NUMEROUS TO CNT /hpf (0-2); Squamous Epithelial Cell Urine 0-4 /hpf (0-5); Urobilinogen Urine Norm (Negative); WBC Urine TOO NUMEROUS TO CNT /hpf (0-5)
[2021-11-10 12:31] LABS: Add Urine Culture? Yes
[2021-11-10] MEDS: ipratropium-albuterol 3 mL Neb INHALATION (13:25)
--- NOTE | 2021-11-10 13:44 | PC.OT ---
OT TREATMENT ATTEMPTED IN A.M. AND PATIENT WAS OFF UNIT FOR TESTING ATTEMPTED AGAIN IN P.M.; PATIENT REFUSED TO PARTICIPATE; WHEN TRIED TO CONVINCE HIM HE STATES, I BELIEVE NO MEANS NO WHEN ASKED IF I COULD ATTEMPT AGAIN TOMORROW HE SHRUGS HIS SHOULDERS.
--- NOTE | 2021-11-10 14:26 | PM.PN ---
Subjective Subjective: Lower abdominal pain, distention, feels like he needs to urinate but cannot. No chest pain or trouble breathing. Vitals/I&O/Wt Last Vital Signs Temp 98.3 F 11/10/21 11:43 Pulse 84 11/10/21 13:27 Resp 20 H 11/10/21 13:27 BP 111/60 11/10/21 11:43 Pulse Ox 97 11/10/21 13:29 O2 Del Method 11/10/21 13:29 O2 Flow Rate 4 11/10/21 11:43 11/09/21 11/10/21 11/10/21 22:59 06:59 14:59 Intake Total 120 / 170 50 / 50 Output Total 250 / 500 Balance -130 / -330 50 / 50 Physical Exam Narrative: Antalgic position in bed holding onto lower abdomen. In discomfort. Const: COMMON NORMALS: patient oriented x3 and alert GENERAL APPEARANCE: cooperative ORIENTATION/CONSCIOUSNESS: Yes awake HENMT: COMMON NORMALS: oropharynx normal Neck/C-Spine: COMMON NORMALS: no JVD Resp: COMMON NORMALS: normal respiratory effort and clear to auscultation bilaterally AUSCULTATION: clear to auscultation bilaterally Cardio: COMMON NORMALS: no JVD, regular rhythm, S1 normal heart sound present, S2 normal heart sound present and No murmurs present (Cardio) RHYTHM: regular rhythm HEART SOUNDS: S1 normal heart sound present and S2 normal heart sound present GI: COMMON NORMALS: Normal to inspection, nondistended, normoactive bowel sounds present, Soft to palpation and non-tender PALPATION: Yes Soft to palpation Extremity: COMMON NORMALS: no joint enlargement and no pedal edema Neuro: COMMON NORMALS: patient oriented x3 and moves all extremities SENSORIUM/ORIENTATION: Yes alert OTHER: Dysarthria Skin: COMMON NORMALS: no rashes or lesions noted GENERAL SKIN EXAM: no rashes or lesions noted OTHER: Chronic stasis changes, darkening of skin over bilateral lower extremities Data : 11/10/21 02:31 11/10/21 02:31 A&P Assessment and plan (1) Urine retention: Hardy placed. Flomax increased to 0.8 mg as he reports this is the dose he actually takes at home. Will need voiding trial in a week. UA collected again, microscopic hematuria, pyuria. Last culture with Colette albicans, add Diflucan. Status: Acute (2) Displaced fracture of right femoral neck: Status post repair. Hemoglobin remained steady at 10.4. Continue Lovenox. PT. Pending authorization for rehabilitation at SNF after discharge. Status: Acute (3) NSTEMI (non-ST elevated myocardial infarction): Continue aspirin, Plavix, beta-radha, statin. For now also on Lovenox. Status: Acute (4) UTI (urinary tract infection): Continue course with ceftriaxone. Add Diflucan for Colette albicans, urinary tension, UA suggestive of persistent cystitis. Status: Acute (5) Fall: Status: Acute (6) Closed hip fracture: Status: Acute (7) BPH (benign prostatic hyperplasia): Increase Flomax dose to 0.8 mg daily. Status: Acute (8) Diabetes mellitus type 2 in nonobese: Status: Acute (9) CVA (cerebral vascular accident): Status: Acute (10) Peripheral artery disease: Status: Acute (11) Hypertension: Status: Acute Plan Hypokalemia: Replace Significant stenosis noted on arterial duplex of lower extremity: No pain or any complaints with regards to his feet. Follow-up symptoms. Outpatient referral if he will follow-up. Social dynamics Estranged from family, did not allow me to call his family at all Noncompliant Have capacity make decision for himself Agreeable to go to [facility] DNR/DNI Dysphagia ground level 2 diet as per speech therapy Daily PT Attestations Medical Necessity Statement*: Continue admission pending prior authorization for continued rehabilitation at SNF, continue treatment of urinary tract infection, add antifungal for candidal cystitis, Coding Level of Care Code Acute Electrical Electronics Engineers for [facility] Fwd Diagnoses Urine retention R33.9 Displaced fracture of right femoral neck S72.001A NSTEMI (non-ST elevated myocardial infarction) I21.4 UTI (urinary tract infection) N39.0 Fall W19.XXXA Closed hip fracture S72.009A BPH (benign prostatic hyperplasia) N40.0 Diabetes mellitus type 2 in nonobese E11.9 CVA (cerebral vascular accident) I63.9 Peripheral artery disease I73.9 Hypertension I10
[2021-11-10] MEDS: fluconazole 100 mg Tablet 200 MG PO (14:43)
[2021-11-10 17:13] LABS: Glucose Point of Care 151 mg/dL (70-110)
[2021-11-10] MEDS: atorvastatin 40 mg Tablet PO (19:29)
[2021-11-10 20:58] LABS: Glucose Point of Care 114 mg/dL (70-110)
[2021-11-11] VITALS (7 sets, daily range): BP systolic 92–170; BP diastolic 57–76; PULSE 69–87; RESP 16–18; TEMP 36.6–37; O2SAT 91–97
[2021-11-11 02:43] LABS: Blood Urea Nitrogen 21 mg/dL (8-23); Calcium 8.9 mg/dL (8.5-10.5); Carbon Dioxide 32 mmol/L (22-29); Glucose 167 mg/dL (65-115)
[2021-11-11 02:58] LABS: Osmolality Calculated 301 mOsm/kg (285-295); Potassium 3.2 mmol/L (3.5-5.1)
[2021-11-11 03:00] LABS: Anion Gap 11.2 (5-19); Chloride 102 mmol/L (98-107); Sodium 142 mmol/L (136-145)
[2021-11-11] MEDS: tamsulosin 0.4 mg Capsule 0.8 MG PO (07:59)
[2021-11-11] MEDS: calcium carb-vit d 600mg/400unit 1 Tablet 1 EACH PO (07:59)
[2021-11-11] MEDS: clopidogrel 75 mg Tablet PO (08:00)
[2021-11-11] MEDS: HYDROcodone-acetaminophen 5-325 mg Tablet 1 TAB PO ×2 (08:00→16:25)
[2021-11-11] MEDS: multivitamin therapeutic Tablet 1 TAB PO (08:00)
[2021-11-11] MEDS: sennosides-docusate Tablet 2 TAB PO (08:01)
[2021-11-11] MEDS: aspirin 81 mg EC Tablet PO (08:01)
[2021-11-11] MEDS: metoprolol succinate ER (24 HR) 25 mg Tablet PO (08:01)
[2021-11-11] MEDS: lisinopril 2.5 mg Tablet PO (08:01)
[2021-11-11] MEDS: enoxaparin 60 mg/0.6 mL Syringe 55 MG SUBCUT (08:01)
[2021-11-11] MEDS: cholecalciferol (vitamin D3) 1,000 unit Tablet 1000 UNIT PO (08:02)
[2021-11-11] MEDS: fluconazole 100 mg Tablet 200 MG PO (08:03)
[2021-11-11] MEDS: iron polysaccharide complex 150 mg Capsule PO (08:04)
[2021-11-11] MEDS: cefTRIAXone 1,000 MG in sodium chloride 0.9% (plus) 50 ML 100 MG IV (08:04)
[2021-11-11] MEDS: ipratropium-albuterol 3 mL Neb INHALATION (08:36)
[2021-11-11] MEDS: potassium chloride ER 20 mEq Tablet 40 MEQ PO (09:38)
[2021-11-11 11:51] LABS: Glucose Point of Care 252 mg/dL (70-110)
[2021-11-11] MEDS: insulin lispro 100 unit/1 mL SUBCUT (12:25)
--- NOTE | 2021-11-11 13:30 | PM.DCS ---
Discharge Providers Date of Admission: 11/04/21 20:16 Date of Discharge: November 11, 2021 Attending Provider at Admission: Cheryl Meza MD Attending Provider at Discharge: Jeff Ordaz Primary Care Provider: Emmanuel He MD Diagnoses at Discharge Discharge Diagnosis (1) Urine retention: Status: Acute (2) Displaced fracture of right femoral neck: Status: Acute (3) NSTEMI (non-ST elevated myocardial infarction): Status: Acute (4) UTI (urinary tract infection): Status: Acute (5) Fall: Status: Acute (6) Closed hip fracture: Status: Acute (7) BPH (benign prostatic hyperplasia): Status: Acute (8) Diabetes mellitus type 2 in nonobese: Status: Acute (9) CVA (cerebral vascular accident): Status: Acute (10) Peripheral artery disease: Status: Acute (11) Hypertension: Status: Acute Reason for Visit Reason for Visit: right side weakness Hospital Course Hospital Course 75-year-old gentleman with history of CVA, with dysarthria, aphasia after a more recent stroke as well as dysphagia, left-sided weakness, residual right-sided weakness, history of urinary retention, DM2, BPH, PAD, HTN, current smoker, was admitted for assessment management after a fall after losing his balance and falling on the right hip, with finding of right hip fracture. Requiring dysphagia level 2 diet with ground solids per speech therapy evaluation. Was started on aspirin, Plavix (was asked to continue for at least 1 month), atorvastatin. During hospitalization also found to have urinary tract infection, for which she is receiving treatment with Rocephin, and also found to have NSTEMI with noted troponin elevation [phone]. Was not agreeable for any intervention. Echocardiogram showed preserved ejection fraction without significant wall motion abnormality. He declined CT angiogram chest. While in the hospital was maintained on anticoagulation with therapeutic Lovenox. VQ scan subsequently obtained, with low probability for PE. He underwent repair of right hip fracture with hemiarthroplasty. Has done well since, but has been noted to have urinary retention and required placement of Hardy catheter on 11/10 with 435 mL noted on bladder scan and unable to void. Urinalysis sent, with too numerous to count RBC, too numerous to count WBC. Urine culture pending. Initial urine culture with Colette albicans. Diflucan is added to ceftriaxone. At home takes tamsulosin 0.8 mg, here was 0.4 mg. Dose increased. Will need voiding trial after a week to attempt DC Hardy. Physical Exam Narrative: Reports he is not having any pain or discomfort. Denies any complaints. Lower abdominal discomfort resolved with urinary bladder decompression. Const: COMMON NORMALS: patient oriented x3 and alert GENERAL APPEARANCE: cooperative ORIENTATION/CONSCIOUSNESS: Yes awake HENMT: COMMON NORMALS: oropharynx normal Neck/C-Spine: COMMON NORMALS: no JVD Resp: COMMON NORMALS: normal respiratory effort and clear to auscultation bilaterally AUSCULTATION: clear to auscultation bilaterally Cardio: COMMON NORMALS: no JVD, regular rhythm, S1 normal heart sound present, S2 normal heart sound present and No murmurs present (Cardio) RHYTHM: regular rhythm HEART SOUNDS: S1 normal heart sound present and S2 normal heart sound present GI: COMMON NORMALS: Normal to inspection, nondistended, normoactive bowel sounds present, Soft to palpation and non-tender PALPATION: Yes Soft to palpation Extremity: COMMON NORMALS: no joint enlargement and no pedal edema Neuro: COMMON NORMALS: patient oriented x3 and moves all extremities SENSORIUM/ORIENTATION: Yes alert OTHER: Dysarthria Skin: COMMON NORMALS: no rashes or lesions noted GENERAL SKIN EXAM: no rashes or lesions noted OTHER: Chronic stasis changes, darkening of skin over bilateral lower extremities Discharge Data Studies Completed and Pending Completed Studies During Hospitalization Category Date Time Status CT head wo con* [id number] Routine Cat Scan 11/04/21 21:57 Completed XR chest 1V portable [id number] Routine Exams 11/04/21 21:51 Completed XR femur RT min 2V* [id number] Stat Exams 11/04/21 19:32 Completed XR hip RT 2-3V wo/w pel* [id number] Stat Exams 11/04/21 18:03 Completed XR knee RT 1-2V [id number] Stat Exams 11/04/21 19:32 Completed XR pelvis 1-2V* [id number] Stat Exams 11/04/21 19:32 Completed XR pelvis 1-2V* [id number] Stat Exams 11/06/21 14:07 Completed NM pulmonary ventilation and perfusion [NM pul vent and Nuc Med 11/10/21 09:24 Completed perfus* [id number]] Routine US arterial duplex lower extremity bilat [CV arterial Ultrasound 11/07/21 12:50 [place] [id number]] Routine US echo complete [CV. echo complete* [id number]] Stat Ultrasound 11/05/21 07:49 Completed US venous duplex lower extremity bilat [CV venous Ultrasound 11/06/21 09:21 [place] [id number]] Routine Pending at discharge Category Date Time Status Basic Metabolic Panel AM LABS Lab 11/12/21 04:00 Ordered Basic Metabolic Panel AM LABS Lab 11/13/21 04:00 Ordered Urine Culture Routine Lab 11/10/21 10:55 Received Radiology Impressions Hip/Pelvis X-Ray 11/04/21 18:03 IMPRESSION: 1. Right subcapital impacted hip fracture. 2. Scattered vascular calcifications. Femur X-Ray 11/04/21 19:32 IMPRESSION: 1. Right subcapital impacted hip fracture. 2. Scattered vascular calcifications. Knee X-Ray 11/04/21 19:32 IMPRESSION: 1. Negative for fracture or dislocation. 2. Mild tricompartmental osteoarthritis of the knee. Chest X-Ray 11/04/21 21:51 IMPRESSION: 1. Minimal left largely upper lobe ground-glass airspace opacity may reflect an early infectious process. 2. Mild cardiomegaly. Head CT 11/04/21 21:57 IMPRESSION: No acute intracranial abnormality. Pelvis X-Ray 11/06/21 14:07 Impression: Right hip hemiarthroplasty. Duplex Scan Lower Extremity Artery 11/07/21 12:50 IMPRESSION: 1. Occlusion of the proximal and mid right superficial femoral artery with reconstituted flow distally. 2. Poststenotic waveforms with decreased peak systolic velocities in the right lower extremity, distal to the occluded superficial femoral artery. 3. Hemodynamically significant stenosis in the distal left superficial femoral or proximal popliteal artery. There are poststenotic waveforms within the left popliteal and infrapopliteal arteries. Pulmonary Perfusion Imaging 11/10/21 09:24 IMPRESSION: 1. Low probability for pulmonary embolus. Laboratory Results WBC 10.1 10^3/uL (4.0-10.0) H 11/10/21 02:31 RBC 3.75 10^6/uL (4.1-5.3) L 11/10/21 02:31 Hgb 10.2 g/dL (11.7-16.6) L 11/10/21 02:31 Hct 33.0 % (42.0-52.0) L 11/10/21 02:31 MCV 88.0 fl (80-94) 11/10/21 02:31 MCH 27.2 pg (28.0-34.0) L 11/10/21 02:31 MCHC 30.9 g/dL (30.0-36.0) 11/10/21 02:31 RDW 14.5 % (12.1-15.1) 11/10/21 02:31 Plt Count 184 10^3/cmm (130-400) 11/10/21 02:31 MPV 11.5 fL (7.4-10.4) H 11/10/21 02:31 Neut % (Auto) 65.7 % 11/10/21 02: Lymph % (Auto) 26.6 % 11/10/21 02:31 [place] % (Auto) 5.0 % 11/10/21 02:31 Eos % (Auto) 1.9 % 11/10/21 02:31 Baso % (Auto) 0.3 % 11/10/21 02:31 Neut # (Auto) 6.62 10^3/uL (1.8-7.7) 11/10/21 02:31 Lymph # (Auto) 2.7 10^3/uL (0.8-4.8) 11/10/21 02:31 [place] # (Auto) 0.5 10^3/uL (0.2-0.9) 11/10/21 02:31 Eos # (Auto) 0.2 10^3/uL (0.0-0.8) 11/10/21 02:31 Baso # (Auto) 0.0 10^3/uL (0.0-0.1) 11/10/21 02:31 Nucleated RBC % (auto) 0 % 11/10/21 02: Nucleated RBCs # 0.0 /100WBC 11/10/21 02:31 PT 14.20 SECONDS (12.1-14.9) 11/05/21 04:35 INR 1.07 (0.8-1.2) 11/05/21 04:35 D-Dimer 11.34 ug/mIFEU (0-0.59) H 11/06/21 04:58 Sodium 142 mmol/L (136-145) 11/11/21 01:42 Potassium 3.2 mmol/L (3.5-5.1) L 11/11/21 01:42 Chloride 102 mmol/L (98-107) 11/11/21 01:42 Carbon Dioxide 32 mmol/L (22-29) H 11/11/21 01:42 Anion Gap 11.2 (5-19) 11/11/21 01:42 BUN 21 mg/dL (8-23) 11/11/21 01:42 Creatinine 0.8 mg/dL (0.7-1.2) 11/11/21 01:42 GFR Calculation Not Reportable 11/11/21 01:42 Glucose 167 mg/dL (65-115) H 11/11/21 01:42 POC Glucose 252 mg/dL (70-110) H 11/11/21 11:21 Estimat Average Glucose 174 11/05/21 04:35 Hemoglobin A1c 7.7 % (4.0-6.0) H 11/05/21 04:35 Calculated Osmolality 301 mOsm/kg (285-295) H 11/11/21 01:42 Calcium 8.9 mg/dL (8.5-10.5) 11/11/21 01:42 Total Bilirubin 1.3 mg/dL (0.15-1.2) H 11/05/21 04:35 AST 22 U/L (0-40) 11/05/21 04:35 ALT 14 U/L (0-41) 11/05/21 04:35 Alkaline Phosphatase 74 U/L (40-130) 11/05/21 04:35 Troponin T Baseline 99 ng/L (0-15) H 11/05/21 04:35 Troponin T 120 Minute 111.3 ng/L (0-15) H 11/05/21 06:32 Delta Troponin T 12.3 ABS# (0-10) H* 11/05/21 06:32 Troponin T Hi Sens 6Hr 109.4 ng/L (0-15) H 11/05/21 10:11 Troponin T Hi Sens 6Hr Delta 10.4 ng/L (0-12) 11/05/21 10:11 C-Reactive Protein 20.6 mg/L (0.0-4.9) H 11/05/21 04:35 NT-Pro-B Natriuret Pep 601 pg/mL (0-450) H 11/05/21 04:35 Total Protein 6.6 g/dL (6.6-8.7) 11/05/21 04:35 Albumin 3.0 g/dL (3.5-5.2) L 11/05/21 04:35 Globulin 3.6 g/dL (1.3-4.6) 11/05/21 04:35 Procalcitonin 0.50 ng/mL (0-0.5) 11/05/21 04:35 TSH 0.50 uIU/mL (0.27-4.20) 11/05/21 04:35 Urine Color Yellow (Yellow) 11/10/21 10:55 Urine Appearance Cloudy (CLEAR) 11/10/21 10:55 Urine pH 7 (5-7) 11/10/21 10:55 Ur Specific [place] 1.010 (1.005-1.030) 11/10/21 10:55 Urine Protein 1+ (Negative) H 11/10/21 10:55 Urine Glucose (UA) Norm (Normal) 11/10/21 10:55 Urine Ketones 1+ (Negative) H 11/10/21 10:55 Urine Blood 3+ (Negative) H 11/10/21 10:55 Urine Nitrate Negative (Negative) 11/10/21 10:55 Urine Bilirubin Neg (Negative) 11/10/21 10:55 Urine Urobilinogen Norm mg/dL (Negative) 11/10/21 10:55 Ur Leukocyte Esterase 2+ (Negative) H 11/10/21 10:55 Urine RBC Too numerous to cnt /hpf (0-2) H 11/10/21 10:55 Urine WBC Too numerous to cnt /hpf (0-5) H 11/10/21 10:55 Ur Squamous Epith Cells 0-4 /hpf (0-5) H 11/10/21 10:55 Amorphous Sediment Not Reportable 11/10/21 10:55 Urine Bacteria 1+ /hpf (NONE) H 11/10/21 10:55 Urine Mucus 1+ /hpf 11/05/21 06:10 Urine Yeast 2+ /hpf H 11/10/21 10:55 Coronavirus 229E (PCR) Cancelled 11/05/21 00:23 SARS-CoV-2 (PCR) Cancelled 11/05/21 00:23 SARS-CoV-2 RNA (RT-PCR) Not detected (NOT DETECTED) 11/05/21 00:23 Blood Type A Positive 11/06/21 06:32 Rho(D) Type Positive 11/06/21 06:32 Antibody Screen Negative 11/06/21 06:32 Vitals Last Vital Signs Temp 97.9 F 11/11/21 11:16 Pulse 86 11/11/21 11:16 Resp 16 11/11/21 11:16 BP 128/71 11/11/21 11:16 Pulse Ox 92 11/11/21 11:16 O2 Del Method 11/11/21 11:16 O2 Flow Rate 2 11/11/21 08:45 Discharge Plan Discharge Patient Disposition: Xfer [facility] Condition: Stable Prescriptions: New oxycodone 5 mg tablet 5 mg PO Q6H 7 Days Qty: 28 0RF clopidogrel 75 mg Tablet 75 mg PO DAILY Qty: 30 0RF ondansetron 4 mg tablet,disintegrating 4 mg PO DAILY PRN (Reason: nausea and vomiting) 5 Days Qty: 10 0RF sennosides [Senokot] 8.6 mg tablet 8.6 mg PO DAILY PRN (Reason: constipation) 7 Days Qty: 10 0RF atorvastatin 40 mg Tablet 40 mg PO BEDTIME Qty: 90 0RF calcium carbonate-vitamin D3 600 mg-10 mcg (400 unit) Tablet 1 ea PO BID 30 Days Qty: 60 0RF cefdinir 300 mg capsule 300 mg PO BID 10 Days Qty: 20 0RF fluconazole 200 mg tablet 200 mg PO DAILY 14 Days Qty: 14 0RF Continued hydrocodone-acetaminophen 10-325 mg Tablet 1 tab PO Q8H PRN (Reason: Pain, Moderate) magnesium oxide 400 mg (241.3 mg magnesium) Tablet 400 mg PO BID Qty: 6 0RF aspirin 81 mg Tablet,Delayed Release (Dr/Ec) 81 mg PO DAILY Qty: 30 0RF potassium chloride 20 mEq tablet,ER particles/crystals 20 meq PO BID metformin 1,000 mg tablet 1,000 mg PO BID azelastine 137 mcg (0.1 %) aerosol,spray 1 spray INTRANASAL BID metoprolol tartrate 25 mg tablet 25 mg PO DAILY Mucinex 600 mg tablet extended release 12hr 1,200 mg PO BID PRN (Reason: Congestion) Ac [place] U-300 Insulin 300 unit/mL (1.5 mL) insulin pen 20 unit SUBCUT BID Changed tamsulosin 0.4 mg Capsule 0.8 mg PO DAILY Qty: 30 0RF Discharge Orders: Discharge Order (Routine); Ordered 11/11/21 Ordered By: Jeff Ordaz Referrals: Dom Gonzalez M.D [Physician] - 12/14/21 12:15 pm (PAD) Adama Hernadez DO [Physician] - 11/20/21 9:00 am Emmanuel He MD [Primary Care Provider] - 4-7 days Discharge Diet: As Directed and Diabetic Discharge Activity: As per PT/OT instructions Patient Instructions: Opioid Safety Activity Restrictions/Additional Instructions: Orthopedic discharge instructions: Patient should take pain medication as prescribed Patient should take DVT prophylaxis as prescribed Patient may be weightbearing as tolerated to the right lower extremity Patient shows maintain posterior hip precautions (no flexion past 90 degrees or internal rotation or abduction of the leg past midline. Should be in a abduction pillow while in bed. Patient may ice right hip for pain and swelling Keep incision clean dry and intact, if gets wet remove bandage pat incision dry and replaced with a new dry dressing Follow-up with Dr. Hernadez in 2 weeks at the clinic for repeat x-rays, incision check with possible staple removal Continue dysphagia, ground level 2 diet. Aspiration precautions. Please keep Hardy catheter in place over the next week. Continue tamsulosin at 0.8 mg daily. After a week attempt voiding trial. In case still difficulties with voiding, please follow-up with urology. Please follow-up with cardiology after your heart attack and with regards to peripheral arterial disease. Please stop smoking. Continued smoking will risk you having additional heart attack, as well as blockage of blood vessels in your leg. Continue aspirin. Start atorvastatin. Continue to optimize risk factors of cardiovascular disease with your primary doctor. Please recheck potassium on Tuesday to reassess hypokalemia. Discharge Attestations Time Spent in Discharge Care*: greater than 30 min Quality Metrics Clinical Quality Measures [ Acute Myocardial Infaction { Clinical Trial Participant: No; Contraindication to aspirin: None; Aspirin prescribed; Contraindication to statin: None; Statin prescribed; Contraindication to PCI: Patient requests alternative treatment;}] Coding Level of Care Code Acute [facility] note Diagnoses Urine retention R33.9 Displaced fracture of right femoral neck S72.001A NSTEMI (non-ST elevated myocardial infarction) I21.4 UTI (urinary tract infection) N39.0 Fall W19.XXXA Closed hip fracture S72.009A BPH (benign prostatic hyperplasia) N40.0 Diabetes mellitus type 2 in nonobese E11.9 CVA (cerebral vascular accident) I63.9 Peripheral artery disease I73.9 Hypertension I10
--- NOTE | 2021-11-11 14:17 | PC.SOCIAL ---
IMM update IMM updated with patient. Verbalized an understanding. Copy Pg 2 provided. Initialled, dated, timed, and placed in chart.
== END 2021-11-11 16:26 | disposition skilled nursing facility (03) | DRG 521 ==
LOC: ER 19:31 → MEDSURG 20:17
PROVIDERS: Family Medicine; Student in an Organized Health Care Education/Training Program; Admitting Provider Internal Medicine; Emergency Provider Emergency Medicine; PCP Family Medicine; Visit Provider Internal Medicine
PROC: 0SRR0J9 Replacement of Right Hip Joint, Femoral Surface with Synthetic Substitute, Cemented, Open Approach (ICD-10-PCS; CPT 27125; principal; 2021-11-06 12:00)
DX: S72.011A Unspecified intracapsular fracture of right femur, initial encounter for closed fracture (principal); I21.4 Non-ST elevation (NSTEMI) myocardial infarction; I69.354 Hemiplegia and hemiparesis following cerebral infarction affecting left non-dominant side; I69.351 Hemiplegia and hemiparesis following cerebral infarction affecting right dominant side; N39.0 Urinary tract infection, site not specified; B37.41 Candidal cystitis and urethritis; W01.0XXA Fall on same level from slipping, tripping and stumbling without subsequent striking against object, initial encounter; E11.51 Type 2 diabetes mellitus with diabetic peripheral angiopathy without gangrene; N40.1 Benign prostatic hyperplasia with lower urinary tract symptoms; R33.8 Other retention of urine; I10 Essential (primary) hypertension; I69.320 Aphasia following cerebral infarction; I69.322 Dysarthria following cerebral infarction; Z99.81 Dependence on supplemental oxygen; F17.210 Nicotine dependence, cigarettes, uncomplicated; Z66 Do not resuscitate; E87.6 Hypokalemia; Z79.4 Long term (current) use of insulin; Z79.84 Long term (current) use of oral hypoglycemic drugs; Z79.82 Long term (current) use of aspirin; Z79.891 Long term (current) use of opiate analgesic
CPT/HCPCS: 36415; 36416; 51702; 70450; 71045; 72170; 73502; 73552; 73560; 78014; 80048; 80053; 81001; 82962; 83036; 83880; 84145; 84443; 84484; 85025; 85378; 85610; 86140; 86850; 86900; 87040; 87086; 87106; 87635; 92507; 92523; 92526; 92610; 93005; 93306; 93925; 93970; 94640; 94664; 96372; 96374; 97110; 97161; 97165; 97530; 97535; 99285; A9540; A9567; C1713; C1776; C9113; J0696; J1100; J1170; J1650; J1815; J2370; J2405; J2704; J2710; J3010; J3480; J3490; J7030

== ENCOUNTER 2021-11-20 09:53 | Inpatient (IN) | payer MEDICARE, MEDICAID, SELFPAY ==
[2021-11-20] VITALS (33 sets, daily range): BP systolic 71–162; BP diastolic 40–74; PULSE 38–112; RESP 3–26; TEMP 34.4–36.6; O2SAT 94–100; BMI 17.7
--- NOTE | 2021-11-20 | SCC_ITS ---
Procedure done: Attempted left and right femoral vein hemodialysis placement Left internal jugular temporary hemodialysis catheter placement 1.9 seconds of fluoroscopic guidance, for a cumulative dose of 0.13 mGy, was provided to Dr. Groves by the radiology department. C-arm images of the chest were saved for the patient's permanent record. YUMIKO
--- NOTE | 2021-11-20 10:10 | ECG_ITS ---
[facility] Test Date: 2021-11-20 Pat Name: Edmond Calvert Department: Room: Gender: Male Paste Thinner: : 1945 Requested By: Jhoan Olson Order Number: [id number] [place] MD: Dom Gonzalez M.D. Measurements Intervals [place] Rate: 39 P: 83 GA: 234 QRS: -80 QRSD: 103 T: 93 QT: 516 QTc: 419 Interpretive Statements SINUS BRADYCARDIA WITH FIRST DEGREE AV BLOCK LEFT AXIS DEVIATION [QRS AXIS < -30] SEPTAL MYOCARDIAL INFARCTION , PROBABLY RECENT [40+ ms Q WAVE IN V1/V2] TYPE 3 BRUGADA PATTERN (NON-DIAGNOSTIC) [COVED/SADDLEBACK ST ELEVATION > 0.1mV IN 2 OF V1-3] Compared to ECG 11/05/2021 08:29:36 First degree AV block now present Left-axis deviation now present Myocardial infarct finding now present ST (T wave) deviation now present T-wave abnormality no longer present Electronically Signed On 11-20-2021 14:26:11 CDT by Dom Gonzalez M.D. [id number]
--- NOTE | 2021-11-20 10:11 | ED_ITS ---
HPI - Altered Mental Status General: Chief Complaint: Altered Mental Status Stated Complaint: MENTAL STATUS CHANGES/ DEHYDRATION/ DIARRHEA Time Seen by Provider: 11/20/21 09:56 PFSH ED PFSH: Medical History BPH (benign prostatic hyperplasia) CVA (cerebral vascular accident) Diabetes mellitus type 2 in nonobese Displaced fracture of right femoral neck Hypertension Peripheral artery disease Subdural hematoma Surgical History H/O right inguinal hernia repair S/P cholecystectomy Family History Other Cancer Diabetes Social History Smoking and tobacco status: current every day smoker Alcohol intake: never Lives independently: Yes Household members: none Course Vital Signs: Vital signs: Vital Signs Temperature 97.9 F 11/20/21 09:55 Pulse Rate 38 L 11/20/21 09:55 Respiratory Rate 14 11/20/21 09:55 Blood Pressure 130/60 11/20/21 09:55 Pulse Oximetry 100 11/20/21 09:55 Oxygen Delivery Me thod 11/20/21 09:55 Discharge Plan Discharge Condition: Stable Prescriptions: No Action hydrocodone-acetaminophen 10-325 mg Tablet 1 tab PO Q8H PRN (Reason: Pain, Moderate) magnesium oxide 400 mg (241.3 mg magnesium) Tablet 400 mg PO BID Qty: 6 0RF aspirin 81 mg Tablet,Delayed Release (Dr/Ec) 81 mg PO DAILY Qty: 30 0RF potassium chloride 20 mEq tablet,ER particles/crystals 20 meq PO BID metformin 1,000 mg tablet 1,000 mg PO BID azelastine 137 mcg (0.1 %) aerosol,spray 1 spray INTRANASAL BID metoprolol tartrate 25 mg tablet 25 mg PO DAILY Mucinex 600 mg tablet extended release 12hr 1,200 mg PO BID PRN (Reason: Congestion) Ac [place] U-300 Insulin 300 unit/mL (1.5 mL) insulin pen 20 unit SUBCUT BID calcium carbonate-vitamin D3 600 mg-10 mcg (400 unit) Tablet 1 ea PO BID 30 Days Qty: 60 0RF tamsulosin 0.4 mg Capsule 0.8 mg PO DAILY Qty: 30 0RF atorvastatin 40 mg Tablet 40 mg PO BEDTIME Qty: 90 0RF fluconazole 200 mg tablet 200 mg PO DAILY 14 Days Qty: 14 0RF clopidogrel 75 mg Tablet 75 mg PO DAILY Qty: 30 0RF Referrals: Emmanuel He MD [Primary Care Provider] - Coding Level of Care Code ED Contact Lens Assistant for Mary Lozoya
--- NOTE | 2021-11-20 10:18 | W.ED.GENADLT ---
HPI - General Adult General: Chief complaint: Altered Mental Status Stated complaint: MENTAL STATUS CHANGES/ DEHYDRATION/ DIARRHEA Time Seen by Provider: 11/20/21 09:56 Source: EMS Mode of arrival: EMS Limitations: altered mental status History of Present Illness: 75-year-old male presents emergency room presents with the patient is obtunded he was sent here because he is dehydrated. He is unable to give any kind of history at all. Patient was admitted on 10/15/2021 and he had a right hip arthroplasty he had urinary retention in the time also had an NSTEMI in the body of the discharge note in the hospital course evidently he was offered an angiogram and he refused. He is completely nonverbal at this time. Is a very abnormal appearing rhythm. According to his chart he is DNR Onset (ago): hour(s) Relieving factors: none Exacerbating factors: none Associated symptoms: Reports confusion Treatments prior to arrival: none Review of Systems General: Reports: ROS unobtainable due to mental status Neuro: Reports: confusion PFS ED PFSH: Medical History Anemia BPH (benign prostatic hyperplasia) CVA (cerebral vascular accident) Diabetes mellitus type 2 in nonobese Displaced fracture of right femoral neck Fall Hyperkalemia Hypertension Peripheral artery disease Severe protein-calorie malnutrition Subdural hematoma Urine retention Surgical History H/O right inguinal hernia repair S/P cholecystectomy Family History Other Cancer Diabetes Social History Smoking and tobacco status: current every day smoker Alcohol intake: never Lives independently: Yes Household members: none Physical Exam Const: GENERAL APPEARANCE: disheveled, ill appearing and frail appearing NUTRITIONAL APPEARANCE: cachectic ORIENTATION/CONSCIOUSNESS: Yes awake HENMT: COMMON NORMALS: normocephalic, atraumatic and hearing grossly normal bilaterally HEAD & SCALP: normocephalic and atraumatic Resp: COMMON NORMALS: normal respiratory effort, No retractions, No use of accessory muscles and clear to auscultation bilaterally AUSCULTATION: clear to auscultation bilaterally and diminished lung sounds Cardio: COMMON NORMALS: regular rhythm and No murmurs present (Cardio) RATE: bradycardic RHYTHM: regular rhythm GI: COMMON NORMALS: Soft to palpation and No hepatosplenomegaly present AUSCULTATION: Yes normoactive bowel sounds PALPATION: Yes Soft to palpation, No Tenderness to palpation present (GI), No Guarding due to palpation present (GI) and Yes No hepatosplenomegaly present Extremity: COMMON NORMALS: normal to inspection, capillary refill normal, no clubbing, cyanosis or edema, no calf tenderness and no pedal edema Skin: COMMON NORMALS: no rashes or lesions noted GENERAL SKIN EXAM: no rashes or lesions noted Course Vital Signs: Vital signs: Vital Signs Temperature 98.1 F 11/25/21 14:40 Pulse Rate 114 H 11/25/21 14:40 Respiratory Rate 17 11/25/21 14:40 Blood Pressure 156/78 11/25/21 14:40 Pulse Oximetry 97 11/25/21 14:40 Oxygen Delivery Me thod 11/25/21 11:32 Oxygen Flow Rate 6 11/22/21 20:00 [facility] - General Adult Medical Decision Making Patient presents in acute renal failure with severe hyperkalemia reported at greater than 10.7. Initial effort included usual calcium chloride sodium bicarb albuterol insulin and glucose. We did get some improvement we consulted surgery to lyse dialysis catheter. Will admit for dialysis for hyperkalemia. Discussed with hospitalist orders written Medical Records I reviewed the patient's medical records. Lab Data I reviewed the patient's lab results. : 11/25/21 04:55 11/25/21 04:[address] 11/20/21 10:24 IMPRESSION: 1. No evidence of intracranial hemorrhage or mass effect. 2. Advanced small vessel changes. Moderate parenchymal volume loss. 3. Chronic lacunar infarcts in the bilateral basal ganglia. 4. Chronic infarcts in the RIGHT greater than LEFT cerebellum and zuleima. 5. Moderate brain stem atrophy unchanged. 6. No acute intracranial findings. Abdomen/Pelvis CT 11/20/21 14:02 IMPRESSION: 1. LEFT lower groin catheter appears extravascular with tip in the presacral space. No evidence of bowel perforation or fluid collection. 2. Small amount of hematoma along the RIGHT lower rectus abdominis/rectus sheath likely due to recent attempted line placement. 3. Dense vascular calcification throughout the abdomen and pelvis. 4. Hardy catheter. 5. RIGHT EMILY degrades images in the pelvis. 6. No other acute findings. Discussed with Shaggy Groves DO at 11/20/2021 2:00 PM. KUB X-Ray 11/20/21 23:14 IMPRESSION: 1. Left femoral central venous catheter seen over the left pelvis. 2. Right hip arthroplasty changes seen with surgical анна overlying the lateral aspect of the hip. Chest X-Ray 11/21/21 01:14 IMPRESSION: No chest radiographic evidence of acute cardiopulmonary disease. Laboratory Results WBC 21.5 10^3/uL (4.0-10.0) H 11/20/21 10:14 RBC 4.36 10^6/uL (4.1-5.3) 11/20/21 10:14 Hgb 11.8 g/dL (11.7-16.6) 11/20/21 10:14 Hct 39.4 % (42.0-52.0) L 11/20/21 10:14 MCV 90.4 fl (80-94) 11/20/21 10:14 MCH 27.1 pg (28.0-34.0) L 11/20/21 10:14 MCHC 29.9 g/dL (30.0-36.0) L 11/20/21 10:14 RDW 15.4 % (12.1-15.1) H 11/20/21 10:14 Plt Count 535 10^3/cmm (130-400) H 11/20/21 10:14 MPV 9.9 fL (7.4-10.4) 11/20/21 10:14 Neut % (Auto) 88.2 % 11/20/21 10:14 Lymph % (Auto) 8.8 % 11/20/21 10:14 Terrell % (Auto) 2.0 % 11/20/21 10:14 Eos % (Auto) 0.0 % 11/20/21 10:14 Baso % (Auto) 0.4 % 11/20/21 10:14 Neut # (Auto) 18.94 10^3/uL (1.8-7.7) H 11/20/21 10:14 Lymph # (Auto) 1.9 10^3/uL (0.8-4.8) 11/20/21 10:14 Terrell # (Auto) 0.4 10^3/uL (0.2-0.9) 11/20/21 10:14 Eos # (Auto) 0.0 10^3/uL (0.0-0.8) 11/20/21 10:14 Baso # (Auto) 0.1 10^3/uL (0.0-0.1) 11/20/21 10:14 Nucleated RBC % (auto) 0 % 11/20/21 10:14 Nucleated RBCs # 0.0 /100WBC 11/20/21 10:14 Specimen Type Arterial 11/20/21 11:06 Sample Site Radial, right 11/20/21 11:06 ABG pH 7.32 (7.35-7.45) L 11/20/21 11:06 ABG pCO2 42.4 mmHg (35-45) 11/20/21 11:06 ABG pO2 207.0 mmHg (80.0-100.0) H 11/20/21 11:06 ABG HCO3 21.6 mmol/L (22-26) L 11/20/21 11:06 ABG O2 Saturation > 100.0 11/20/21 11:06 ABG Base Excess -4.3 mmol/L (-2.0-2.0) L 11/20/21 11:06 Murali Test Pos 11/20/21 11:06 A-a O2 Gradient Not Reportable 11/20/21 11:06 Hematocrit 30.7 % (42-52) L 11/20/21 11:06 Hgb O2 Saturation 98.6 % (95-100) 11/20/21 11:06 Carboxyhemoglobin 0.9 %THgb (0.4-20.1) 11/20/21 11:06 Methemoglobin 0.6 % (0.4-1.5) 11/20/21 11:06 Total Hemoglobin 10.0 g/dL (14-18) L 11/20/21 11:06 Sodium 145.0 mmol/L (131-143) H 11/20/21 11:06 Potassium 9.4 mmol/L (3.5-5.0) H 11/20/21 11:06 Glucose 147.0 mg/dL (70-115) H 11/20/21 11:06 Ionized Calcium 1.4 mmol/L (1.1-1.4) 11/20/21 11:06 O2 Delivery Device Oxy mask 11/20/21 11:06 O2 Liters/Min 6.0 % 11/20/21 11:06 Pump Servicer Supervisor ID Cak 11/20/21 11:06 Sodium 147 mmol/L (136-145) H 11/20/21 12:04 Potassium 8.1 mmol/L (3.5-5.1) H* D 11/20/21 12:04 Chloride 115 mmol/L (98-107) H 11/20/21 12:04 Carbon Dioxide 23 mmol/L (22-29) 11/20/21 12:04 Anion Gap 17.1 (5-19) 11/20/21 12:04 BUN 57 mg/dL (8-23) H 11/20/21 12:04 Creatinine 2.6 mg/dL (0.7-1.2) H 11/20/21 12:04 GFR Calculation Not Reportable 11/20/21 12:04 Glucose 77 mg/dL (65-115) 11/20/21 12:04 POC Glucose 83 mg/dL (70-110) 11/20/21 15:09 Calculated Osmolality 319 mOsm/kg (285-295) H 11/20/21 12:04 Lactic Acid 2.1 mmol/L (0.5-2.2) 11/20/21 10:14 Lactic Acid (Sepsis) 2.4 mmol/L (0.5-2.2) H 11/20/21 14:22 Calcium 12.9 mg/dL (8.5-10.5) H 11/20/21 12:04 Magnesium 3.3 mg/dL (1.7-2.3) H 11/20/21 11:03 Total Bilirubin 0.2 mg/dL (0.15-1.2) 11/20/21 11:03 AST 15 U/L (0-40) 11/20/21 11:03 ALT 16 U/L (0-41) 11/20/21 11:03 Alkaline Phosphatase 136 U/L (40-130) H 11/20/21 11:03 Total Protein 7.7 g/dL (6.6-8.7) 11/20/21 11:03 Albumin 3.3 g/dL (3.5-5.2) L 11/20/21 11:03 Globulin 4.4 g/dL (1.3-4.6) 11/20/21 11:03 Urine Color Yellow (Yellow) 11/20/21 11:00 Urine Appearance Clear (CLEAR) 11/20/21 11:00 Urine pH 5 (5-7) 11/20/21 11:00 Ur Specific Holton 1.015 (1.005-1.030) 11/20/21 11:00 Urine Protein Neg (Negative) 11/20/21 11:00 Urine Glucose (UA) Norm (Normal) 11/20/21 11:00 Urine Ketones 1+ (Negative) H 11/20/21 11:00 Urine Blood Trace (Negative) H 11/20/21 11:00 Urine Nitrate Negative (Negative) 11/20/21 11:00 Urine Bilirubin Neg (Negative) 11/20/21 11:00 Urine Urobilinogen Neg mg/dL (Negative) 11/20/21 11:00 Ur Leukocyte Esterase Trace (Negative) H 11/20/21 11:00 Urine RBC 0-4 /hpf (0-2) H 11/20/21 11:00 Urine WBC 0-4 /hpf (0-5) H 11/20/21 11:00 Ur Squamous Epith Cells 25-40 /hpf (0-5) H 11/20/21 11:00 Amorphous Sediment Not Reportable 11/20/21 11:00 Urine Bacteria Trace /hpf (NONE) 11/20/21 11:00 Serum Ketones Negative (Negative) 11/20/21 10:24 Hep Bs Antigen Non-reactive (Nonreactive) 11/20/21 10:20 Hep Bs Antibody 30.3 (11.5-1000) 11/20/21 10:20 Hepatitis C Antibody Non-reactive (Nonreactive) 11/20/21 10:20 Critical Care Time Critical Care Time: Critical Care Time: Yes Total Critical Care Time: 40 Attestation: The high probability of a clinically significant, sudden or life threatening deterioration of the patient's cardiovascular renal metabolic system(s) required my full and direct attention, intervention and personal management. The critical care time is as shown. This time is in addition to time spent performing any reported procedures but includes the following: [x] Data and vital sign review and interpretation [x] Patient assessment, examination and intervention [x] Documentation [x] Medication orders and management Discharge Plan Discharge Patient Disposition: Admitted As Inpatient Admit Provider: Ben De La Rosa Clinical Impression: Acute hyperkalemia, Acute kidney injury, Acute urinary retention, Benign prostatic hyperplasia, Diabetes mellitus Condition: Stable Coding Level of Care Code ED Wheel Lacer And Truer for Chg Fwd Exam Detailed
[2021-11-20 10:23] LABS: Basophils # 0.1 10^3/uL (0.0-0.1); Basophils % 0.4 %; Hematocrit 39.4 % (42.0-52.0); Hemoglobin 11.8 g/dL (11.7-16.6); Lymphocytes # 1.9 10^3/uL (0.8-4.8); Lymphocytes % 8.8 %; Mean Corpuscular HGB Conc 29.9 g/dL (30.0-36.0); Mean Corpuscular Hemoglobin 27.1 pg (28.0-34.0); Mean Corpuscular Volume 90.4 fl (80-94); Mean Platelet Volume 9.9 fL (7.4-10.4); Monocytes # 0.4 10^3/uL (0.2-0.9); Neutrophils # 18.94 10^3/uL (1.8-7.7); Neutrophils % 88.2 %; Nucleated Red Blood Cells % 0 %; Platelet Count 535 10^3/cmm (130-400); Red Blood Count 4.36 10^6/uL (4.1-5.3); Red Cell Distribution Width 15.4 % (12.1-15.1); White Blood Count 21.5 10^3/uL (4.0-10.0)
--- NOTE | 2021-11-20 10:24 | XR_ITS ---
WS: [id number] Portable AP semiupright chest, portable chest, 11/04/2021. Clinical Data: dyspnea/cough Comparison: None. Findings: No nodules, masses or effusions are seen. The heart is normal. The pulmonary vascularity is not increased. No pneumonia or pneumothorax is seen. The aortic arch and descending thoracic aorta s how calcification and tortuosity. XR/XR chest 1V portable [id number] Impression: Atherosclerosis.
--- NOTE | 2021-11-20 10:24 | CT_ITS ---
WS: [id number] CT HEAD TECHNIQUE: Noncontrast CT of the head obtained from the skullbase to the vertex. CLINICAL INFORMATION: AMS/hx of strokes COMPARISON: November 05, 2021 DLP: 1015.[address] scans at [facility] use at least one of these dose optimization techniques: automated e xposure control; mA and/or kV adjustment per patient size (includes targeted exams where dose is matc hed to clinical indication); or iterative reconstruction. FINDINGS: No evidence of intracranial hemorrhage or mass effect. Ventricular system and basal cisterns are haque nt. Advanced small vessel changes with moderate parenchymal volume loss. Chronic lacunar infarcts in bilateral basal ganglia and zuleima. Chronic infarcts in the RIGHT greater than LEFT cerebellum. Moderat e brainstem atrophy. Intracranial vascular calcification. Paranasal sinuses and mastoid air cells are well aerated. . RIGHT parietal scalp hematoma improved co mpared to November 05, 2021 CT/CT head wo con* [id number] IMPRESSION: 1. No evidence of intracranial hemorrhage or mass effect. 2. Advanced small vessel changes. Moderate parenchymal volume loss. 3. Chronic lacunar infarcts in the bilateral basal ganglia. 4. Chronic infarcts in the RIGHT greater than LEFT cerebellum and zuleima. 5. Moderate brain stem atrophy unchanged. 6. No acute intracranial findings.
[2021-11-20 10:35] LABS: Glucose Point of Care 147 mg/dL (70-110)
[2021-11-20 10:47] LABS: Lactic Sepsis W/Reflex 2.1 mmol/L (0.5-2.2)
[2021-11-20] MEDS: sodium chloride 0.9% 1,000 ML 999 ML IV ×2 (10:49→19:54)
[2021-11-20 11:06] LABS: Ketone (Acetest) Serum Negative (Negative)
[2021-11-20 11:17] LABS: ABG PCO2 42.4 mmHg (35-45); ABG PH Result 7.32 (7.35-7.45); Arterial Blood Gas Hematocrit 30.7 % (42-52); Base Excess ABG -4.3 mmol/L (-2.0-2.0); Blood Gas Allen Test Pos; Blood Gas Operator Identificat CAK; Blood Gas Sample Site Radial, right; Blood Gas Sample Type Arterial; Carboxyhemoglobin 0.9 %THgb (0.4-20.1); HCO3 ABG 21.6 mmol/L (22-26); HGB O2 Sat 98.6 % (95-100); Ionized Calcium Level - ABG 1.4 mmol/L (1.1-1.4); Methemoglobin 0.6 % (0.4-1.5); Oxygen Device OXY MASK; Oxygen Saturation ABG > 100.0; Potassium Level - ABG 9.4 mmol/L (3.5-5.0)
[2021-11-20] MEDS: calcium chloride 10% Syr 10 mL 2 GM IVP ×2 (11:17→15:29)
[2021-11-20] MEDS: sodium bicarbonate 8.4% 1 mEq/mL 50mL Syr 100 MEQ IVP (11:17)
[2021-11-20] MEDS: insulin regular-human 100 units/1 mL 10 UNIT IVP (11:17)
[2021-11-20 11:21] LABS: Glucose Urine UA Norm (Normal); Protein Urine Neg (Negative); Specific Gravity, Urine 1.015 (1.005-1.030); Urine Appearance Clear (CLEAR); Urine Color Yellow (Yellow); pH Urine 5 (5-7)
[2021-11-20 11:22] LABS: Bilirubin Urine Neg (Negative); Blood Urine Trace (Negative); Ketones Urine 1+ (Negative); Nitrate Urine Negative (Negative); Urobilinogen Urine Neg (Negative)
[2021-11-20 11:23] LABS: Add Urine Microscopic? YES; Leukocyte Esterase Urine Trace (Negative)
[2021-11-20 11:26] LABS: RBC Urine 0-4 /hpf (0-2); Squamous Epithelial Cell Urine 25-40 /hpf (0-5); WBC Urine 0-4 /hpf (0-5)
[2021-11-20 11:27] LABS: Add Urine Culture? No; Bacteria Urine TRACE /hpf
[2021-11-20 11:27] LABS: Alanine Aminotransferase 16 U/L (0-41); Albumin Level 3.3 g/dL (3.5-5.2); Alkaline Phosphatase 136 U/L (40-130); Aspartate Amino Transferase 15 U/L (0-40); Blood Urea Nitrogen 67 mg/dL (8-23); Calcium 10.1 mg/dL (8.5-10.5); Carbon Dioxide 24 mmol/L (22-29); Chloride 109 mmol/L (98-107); Globulin 4.4 g/dL (1.3-4.6); Glucose 152 mg/dL (65-115); Magnesium 3.3 mg/dL (1.7-2.3); Osmolality Calculated 310 mOsm/kg (285-295); Sodium 139 mmol/L (136-145); Total Bilirubin 0.2 mg/dL (0.15-1.2); Total Protein 7.7 g/dL (6.6-8.7)
[2021-11-20] MEDS: dextrose 10% 1,000 ML 100 ML IV (11:30)
[2021-11-20 11:34] LABS: Anion Gap 16.7 (5-19)
[2021-11-20 11:35] LABS: Potassium > 10.7 mmol/L (3.5-5.1)
[2021-11-20 12:05] LABS: Reflex Lactate Order REFLEX LACTIC ORDERD
[2021-11-20 12:28] LABS: Anion Gap 17.1 (5-19); Blood Urea Nitrogen 57 mg/dL (8-23); Calcium 12.9 mg/dL (8.5-10.5); Carbon Dioxide 23 mmol/L (22-29); Chloride 115 mmol/L (98-107); Glucose 77 mg/dL (65-115); Osmolality Calculated 319 mOsm/kg (285-295); Sodium 147 mmol/L (136-145)
[2021-11-20 12:29] LABS: Potassium 8.1 mmol/L (3.5-5.1)
[2021-11-20 12:31] LABS: Glucose Point of Care 99 mg/dL (70-110)
--- NOTE | 2021-11-20 12:45 | PM.CONSULT ---
Providers/Reason For Consult Consulting Physician/Specialty*: Carly Simmons DO, telenephrology Reason for Consult*: SALINA, hyperkalemia Primary Care Provider: Emmanuel He MD History of Present Illness History of Present Illness Edmond Calvert is a 75 year old male presenting to ER for evaluation of altered mental status. [place] [facility] [place] urine retention, UTI, hip fracture, NSTEMI. It appears he was discharged with posadas, returned without. Review of Systems Narrative: unable to obtain Medications/Allergies Home Medications Medication Instructions Recorded Confirmed Last Taken Type hydrocodone 10 mg-acetaminophen 1 tab PO Q8H PRN Pain, Moderate 06/27/19 11/20/21 11/17/21 History 325 mg tablet magnesium oxide 400 mg (241.3 mg 400 mg PO BID #6 tabs 06/29/19 11/20/21 11/20/21 Rx magnesium) tablet azelastine 137 mcg (0.1 %) nasal 1 spray intranasal BID 11/04/21 11/20/21 11/20/21 History spray aerosol insulin glargine U-300 conc 300 20 unit SUBCUT BID 11/04/21 11/20/21 11/20/21 History unit/mL (1.5 mL) subcutaneous pen (Toujeo SoloStar U-300 Insulin) metformin 1,000 mg tablet 1,000 mg PO BID 11/04/21 11/20/21 11/20/21 History metoprolol tartrate 25 mg tablet 25 mg PO DAILY 11/04/21 11/20/21 11/20/21 History potassium chloride 20 mEq 20 meq PO BID 11/04/21 11/20/21 11/20/21 History tablet,extended release(part/cryst) calcium carbonate 600 mg-vitamin 1 ea PO BID 30 days #60 tabs 11/09/21 11/20/21 Unknown Rx D3 10 mcg (400 unit) tablet atorvastatin 40 mg tablet 40 mg PO BEDTIME #90 tabs 11/10/21 11/20/21 11/19/21 Rx fluconazole 200 mg tablet 200 mg PO DAILY 14 days #14 tabs 11/10/21 11/20/21 11/20/21 Rx tamsulosin 0.4 mg capsule 0.8 mg PO DAILY #30 caps 11/10/21 11/20/21 11/19/21 Rx clopidogrel 75 mg tablet 75 mg PO DAILY #30 tabs 11/11/21 11/20/21 11/20/21 Rx albuterol sulfate 2.5 mg inhalation Q4H PRN 11/20/21 11/20/21 11/16/21 History Shortness Of Breath Or Wheezing amino acids-protein hydrolysate 15 1 ea PO BID 11/20/21 11/20/21 11/20/21 History gram-101 kcal/30 mL oral liquid aspirin 325 mg tablet 325 mg PO BID 11/20/21 11/20/21 11/20/21 History bisacodyl 10 mg rectal suppository 10 mg OH DAILY PRN Constipation 11/20/21 11/20/21 Unknown History (Dulcolax (bisacodyl)) cefdinir 300 mg capsule 300 mg PO BID 11/20/21 11/20/21 11/20/21 History cholecalciferol (vitamin D3) 1,250 1,250 mcg PO Q7D 11/20/21 11/20/21 Unknown History mcg (50,000 unit) capsule fexofenadine 60 mg tablet 60 mg PO Q12H 11/20/21 11/20/21 Unknown History magnesium hydroxide 400 mg/5 mL 30 ml PO DAILY PRN Constipation 11/20/21 11/20/21 11/14/21 History oral suspension (Milk of Magnesia) sodium phosphates 19 gram-7 118 ml OH DAILY PRN Constipation 11/20/21 11/20/21 Unknown History gram/118 mL enema (Fleet Enema) Allergies Allergy/AdvReac Type Severity Reaction Status Date / Time No Known Allergies Allergy Verified 11/20/21 11:17 Current Medications Generic Name Dose Route Start Last Admin Trade Name Freq PRN Reason Stop Dose Admin Dextrose 1,000 mls @ 100 mls/hr 11/20/21 11:00 11/20/21 11:30 D10w IV 100 mls/hr .Q10H CINTIA Administration PFSH Acute PFSH: Medical History BPH (benign prostatic hyperplasia) CVA (cerebral vascular accident) Diabetes mellitus type 2 in nonobese Displaced fracture of right femoral neck Fall Hypertension Peripheral artery disease Subdural hematoma Surgical History H/O right inguinal hernia repair S/P cholecystectomy Family History Other Cancer Diabetes Social History Smoking and tobacco status: current every day smoker Alcohol intake: never Lives independently: Yes Household members: none Vitals/I&O/Wt Last Vital Signs Temp 97.9 F 11/20/21 09:55 Pulse 47 L 11/20/21 11:12 Resp 14 11/20/21 11:09 BP 130/60 11/20/21 09:55 Pulse Ox 98 11/20/21 11:09 O2 Del Method 11/20/21 11:09 O2 Flow Rate 6 11/20/21 11:09 Weight last 48 hrs Weight 49.895 kg Physical Exam Const: COMMON NORMALS: no acute distress and alert Extremity: COMMON NORMALS: no pedal edema Neuro: SENSORIUM/ORIENTATION: Yes alert Data : 11/20/21 10:14 11/20/21 12:04 Micro: Microbiology 11/20/21 11:05 Blood Culture - Preliminary Blood SPECIMEN COLLECTED 11/20/21 11:03 Blood Culture - Preliminary Blood SPECIMEN COLLECTED CT Abd/Pel: Radiologist's impression: 1.? LEFT lower groin catheter appears extravascular with tip in the presacral space. No evidence of bowel perforation or fluid collection. 2.? Small amount of hematoma along the RIGHT lower rectus abdominis/rectus sheath likely due to recent attempted line placement. 3.? Dense vascular calcification throughout the abdomen and pelvis. 4.? Posadas catheter. 5.? RIGHT EMILY degrades images in the pelvis. 6.? No other acute findings. ? NO HYDRONEPHROSIS CXR: Radiologist's impression: Findings: No nodules, masses or effusions are seen. The heart is normal. The pulmonary vascularity is not increased. No pneumonia or pneumothorax is seen. The aortic arch and descending thoracic aorta show calcification and tortuosity. Other data: seen via telehealth with assistance of RN at bedside consult for consult and dialysis was obtained by ER physician from [facility] Several attempts were made to see patient after speaking with ER physician earlier today. Seen in ICU during dialysis after OR placement of Left IJ temporary HD catheter A&P Assessment and plan (1) Hyperkalemia: Status: Acute Plan 1. Acute kidney injury, history of urine retention. Did not have posadas on presentation. OR emptied 850 ml clear urine. Suspect combination of volume depletion and obstruction as cause of SALINA. 2. Hyperkalemia (was receiving replacement orally) 3. Hypercalcemia 4. Mild hypernatremia (hypovolemic) Rec: received medical treatment for high K, continue IVF hydration with NSS at 100 ml/hr.. HD today 3h, 2K bath (1 K not available), no fluid removal. Discontinue metformin, magnesium, potassium, fleets enema Repeat labs 4h after HD and again in AM. Coding Level of Care Code Acute Production Control Clerk for g Fwd Diagnoses Hyperkalemia E87.5
--- NOTE | 2021-11-20 14:02 | CT_ITS ---
WS: [id number] CT ABDOMEN PELVIS TECHNIQUE: Noncontrast CT of the abdomen and pelvis with coronal and sagittal reformatted images. CLINICAL INFORMATION: DIALYSIS CATHETER PLACEMENT COMPARISON: None. DLP: All CT scans at [facility] use at least one of these dose optimization techniques: automated e xposure control; mA and/or kV adjustment per patient size (includes targeted exams where dose is matc hed to clinical indication); or iterative reconstruction. FINDINGS: LEFT femoral catheter enters the LEFT groin traverses the pelvis with tip distally in the presacral s pace. No evidence of bowel perforation or hemorrhage. No suspicious fluid collections in the pelvis. Hardy catheter. RIGHT EMILY degrades some images in the pelvis. Dense vascular calcification. Densely calcified aorta and femoral arteries. Densely calcified iliac a rteries. Noncontrast liver is normal. Cholecystectomy. Normal GE junction. Lung bases are well aerated. Fatty atrophy of the pancreas. Adrenal glands are normal. No hydronephrosis in either kidney. Dense renal v ascular calcification. Small amount of hematoma along the RIGHT lower rectus abdominis may be due to recent attempted line p lacement. Hypertrophic changes lumbar spine. CT/CT abdomen pelvis wo con [id number] IMPRESSION: 1. LEFT lower groin catheter appears extravascular with tip in the presacral s pace. No evidence of bowel perforation or fluid collection. 2. Small amount of hematoma along the RIGHT lower rectus abdominis/rectus cruz th likely due to recent attempted line placement. 3. Dense vascular calcification throughout the abdomen and pelvis. 4. Hardy catheter. 5. RIGHT EMILY degrades images in the pelvis. 6. No other acute findings. Discussed with Shaggy Groves DO at 11/20/2021 2:00 PM.
[2021-11-20 14:44] LABS: Lactic Acid level (Lactate) 2.4 mmol/L (0.5-2.2)
[2021-11-20 15:13] LABS: Glucose Point of Care 83 mg/dL (70-110)
[2021-11-20] MEDS: sodium bicarbonate 8.4% 1 mEq/mL 50mL Syr 50 MEQ IVP (15:28)
--- NOTE | 2021-11-20 15:55 | PC.NURSE ---
several attempts were made to get a femoral line by , I spent one on one time with this pt during this time, pt remained stable and tolarated it well. Pt is non verbal but can answer yes and no questions.
--- NOTE | 2021-11-20 16:30 | PM.CONSULT ---
Providers/Reason For Consult Consulting Physician/Specialty*: Dr. Shaggy Groves, DO/General surgery Reason for Consult*: Need for hemodialysis access emergently Attending Physician: Ben De La Rosa MD Primary Care Provider: Emmanuel He MD History of Present Illness History of Present Illness Edmond Calvert is a 75 year old male who presented to the emergency room with some confusion. He was found to have an extremely elevated potassium and is in need of emergent dialysis. Review of Systems General: Reports: ROS unobtainable due to mental status Medications/Allergies Home Medications Medication Instructions Recorded Confirmed Last Taken Type hydrocodone 10 mg-acetaminophen 1 tab PO Q8H PRN Pain, Moderate 06/27/19 11/20/21 11/17/21 History 325 mg tablet magnesium oxide 400 mg (241.3 mg 400 mg PO BID #6 tabs 06/29/19 11/20/21 11/20/21 Rx magnesium) tablet azelastine 137 mcg (0.1 %) nasal 1 spray intranasal BID 11/04/21 11/20/21 11/20/21 History spray aerosol insulin glargine U-300 conc 300 20 unit SUBCUT BID 11/04/21 11/20/21 11/20/21 History unit/mL (1.5 mL) subcutaneous pen (Toujeo SoloStar U-300 Insulin) metformin 1,000 mg tablet 1,000 mg PO BID 11/04/21 11/20/21 11/20/21 History metoprolol tartrate 25 mg tablet 25 mg PO DAILY 11/04/21 11/20/21 11/20/21 History potassium chloride 20 mEq 20 meq PO BID 11/04/21 11/20/21 11/20/21 History tablet,extended release(part/cryst) calcium carbonate 600 mg-vitamin 1 ea PO BID 30 days #60 tabs 11/09/21 11/20/21 Unknown Rx D3 10 mcg (400 unit) tablet atorvastatin 40 mg tablet 40 mg PO BEDTIME #90 tabs 11/10/21 11/20/21 11/19/21 Rx fluconazole 200 mg tablet 200 mg PO DAILY 14 days #14 tabs 11/10/21 11/20/21 11/20/21 Rx tamsulosin 0.4 mg capsule 0.8 mg PO DAILY #30 caps 11/10/21 11/20/21 11/19/21 Rx clopidogrel 75 mg tablet 75 mg PO DAILY #30 tabs 11/11/21 11/20/21 11/20/21 Rx albuterol sulfate 2.5 mg inhalation Q4H PRN 11/20/21 11/20/21 11/16/21 History Shortness Of Breath Or Wheezing amino acids-protein hydrolysate 15 1 ea PO BID 11/20/21 11/20/21 11/20/21 History gram-101 kcal/30 mL oral liquid aspirin 325 mg tablet 325 mg PO BID 11/20/21 11/20/21 11/20/21 History bisacodyl 10 mg rectal suppository 10 mg PA DAILY PRN Constipation 11/20/21 11/20/21 Unknown History (Dulcolax (bisacodyl)) cefdinir 300 mg capsule 300 mg PO BID 11/20/21 11/20/21 11/20/21 History cholecalciferol (vitamin D3) 1,250 1,250 mcg PO Q7D 11/20/21 11/20/21 Unknown History mcg (50,000 unit) capsule fexofenadine 60 mg tablet 60 mg PO Q12H 11/20/21 11/20/21 Unknown History magnesium hydroxide 400 mg/5 mL 30 ml PO DAILY PRN Constipation 11/20/21 11/20/21 11/14/21 History oral suspension (Milk of Magnesia) sodium phosphates 19 gram-7 118 ml PA DAILY PRN Constipation 11/20/21 11/20/21 Unknown History gram/118 mL enema (Fleet Enema) Allergies Allergy/AdvReac Type Severity Reaction Status Date / Time No Known Allergies Allergy Verified 11/20/21 11:17 Current Medications Generic Name Dose Route Start Last Admin Trade Name Freq PRN Reason Stop Dose Admin Dextrose 1,000 mls @ 100 mls/hr 11/20/21 11:00 11/20/21 11:30 D10w IV 100 mls/hr .Q10H CINTIA Administration PFSH Acute PFSH: Medical History BPH (benign prostatic hyperplasia) CVA (cerebral vascular accident) Diabetes mellitus type 2 in nonobese Displaced fracture of right femoral neck Fall Hypertension Peripheral artery disease Subdural hematoma Surgical History H/O right inguinal hernia repair S/P cholecystectomy Family History Other Cancer Diabetes Social History Smoking and tobacco status: current every day smoker Alcohol intake: never Lives independently: Yes Household members: none Vitals/I&O/Wt Last Vital Signs Temp 97.9 F 11/20/21 09:55 Pulse 78 11/20/21 15:52 Resp 14 11/20/21 15:52 BP 128/62 11/20/21 15:52 Pulse Ox 96 11/20/21 15:52 O2 Del Method 11/20/21 11:09 O2 Flow Rate 6 11/20/21 11:09 11/20/21 11/20/21 11/20/21 06:59 14:59 22:59 Intake Total 1000 / 1000 Balance 1000 / 1000 Weight last 48 hrs Weight 110 lb Physical Exam Narrative: General no acute distress, confused Abdomen: Soft, nontender, nondistended no guarding rebound or masses Data : 11/20/21 10:14 11/20/21 12:04 Micro: Microbiology 11/20/21 11:05 Blood Culture - Preliminary Blood SPECIMEN COLLECTED 11/20/21 11:03 Blood Culture - Preliminary Blood SPECIMEN COLLECTED A&P Assessment and plan (1) Hyperkalemia: Status: Acute Plan Temporary hemodialysis catheter insertion. Patient is DPOA told the ER physician, Dr. Connolly, that she wanted it placed. The and the DPOA left. This is being placed emergently. Coding Level of Care Code Acute Materials Tech for Mary Lozoya Diagnoses Hyperkalemia E87.5
[2021-11-20 16:32] LABS: Hepatitis B Surface AB 30.3 (11.5-1000); Hepatitis B Surface Antigen Non-Reactive (Nonreactive); Hepatitis C Virus Antibody Non-Reactive (Nonreactive)
--- NOTE | 2021-11-20 16:47 | SUR.OPER ---
1647 moved pt to OR bed from ICU bed. during transport, noticed red clotted blood from the attempted left femoral line site. red clotted blood around scrotum and on draw sheet. No pooling noted. Dr. Groves notified and placed 4x4s and foam tape over site for pressure dressing. Sandbag over dressing for pressure during case. 172 checked left femoral site. sandbag over left femoral dressing. no blood oozing from site or running down left leg. lifted sandbag to check dressing. no oozing noted. 4x4s not saturated. placed sandbag over site. called report to ICU Vamsi Prince. explained about sandbag over left femoral. 174 during handoff, showed sandbag over left femoral site to [place] and [place].
[2021-11-20] MEDS: heparin, porcine 1,000 unit/mL INJ 10 mL 6000 UNIT INJECTION (17:08)
--- NOTE | 2021-11-20 17:10 | SUR.OPER ---
1710 Aly stated that fluids not flowing from left IV. Checked left AC IV and dressing intact and catheter located at left AC. checked clear opsite over site and noticed catheter kinked. removed dressing and tried to withdraw blood with syringe. No blood return. Tried to reposition IV Cath and withdraw blood and flush with NS. NO blood return and resistance when flushing. Notified Yo Dumont of left AC IV, and removed left AC IV catheter. IV catheter intact. placed 4x4 with tape over site.
--- NOTE | 2021-11-20 17:19 | PC.NURSE ---
lab called icu they are out of sticks on pt for today, called and talked to julien in lab and question only 2 and out of attempt for day explained pt in surgery and need to call them as surgery is putting in lines
--- NOTE | 2021-11-20 17:23 | ANES.PREANE2 ---
Pre-Anesthetic Assessment Height/Weight: Height 1.68 m Weight 49.895 kg Temp Pulse Resp BP Pulse Ox O2 Del Method O2 Flow Rate 97.9 F 78 14 128/62 96 6 11/20/21 09:55 11/20/21 15:52 11/20/21 15:52 11/20/21 15:52 11/20/21 15:52 11/20/21 11:09 11/20/21 11:09 Preop Diagnosis: acute hip fx right Operation Date: 11/20/21 16:00 Proposed Procedures p Dialysis Catheter Insertion(Not Applicable) - Shaggy Groves DO Familial anesthetic complications: none Was Beta Edwin taken within 24 hours: Yes Was Clonidine taken within 24 hours: N/A Social No alcohol and No tobacco (h/o smoking) Exam regular rate & rhythm somnolent Airway Submandibular: within normal limits Cervical ROM: within normal limits Mallampati: Class II Pulmonary Chronic Obstructive Pulmonary Disease CV/HEM Coronary Artery Disease, Hypertension, Myocardial Infarction and Peripheral Vascular Disease ESRD, severe hyperkalemia Metabolic Diabetes Mellitus cachectic Neuropsych Deficit and Transient Ischemic Attack Anesthetic Plan ASA status: 4E Anesthesia: MAC Medications/Allergies Home Medications Medication Instructions Recorded Confirmed Last Taken Type hydrocodone 10 mg-acetaminophen 1 tab PO Q8H PRN Pain, Moderate 06/27/19 11/20/21 11/17/21 History 325 mg tablet magnesium oxide 400 mg (241.3 mg 400 mg PO BID #6 tabs 06/29/19 11/20/21 11/20/21 Rx magnesium) tablet azelastine 137 mcg (0.1 %) nasal 1 spray intranasal BID 11/04/21 11/20/21 11/20/21 History spray aerosol insulin glargine U-300 conc 300 20 unit SUBCUT BID 11/04/21 11/20/21 11/20/21 History unit/mL (1.5 mL) subcutaneous pen (Toujeo SoloStar U-300 Insulin) metformin 1,000 mg tablet 1,000 mg PO BID 11/04/21 11/20/21 11/20/21 History metoprolol tartrate 25 mg tablet 25 mg PO DAILY 11/04/21 11/20/21 11/20/21 History potassium chloride 20 mEq 20 meq PO BID 11/04/21 11/20/21 11/20/21 History tablet,extended release(part/cryst) calcium carbonate 600 mg-vitamin 1 ea PO BID 30 days #60 tabs 11/09/21 11/20/21 Unknown Rx D3 10 mcg (400 unit) tablet atorvastatin 40 mg tablet 40 mg PO BEDTIME #90 tabs 11/10/21 11/20/21 11/19/21 Rx fluconazole 200 mg tablet 200 mg PO DAILY 14 days #14 tabs 11/10/21 11/20/21 11/20/21 Rx tamsulosin 0.4 mg capsule 0.8 mg PO DAILY #30 caps 11/10/21 11/20/21 11/19/21 Rx clopidogrel 75 mg tablet 75 mg PO DAILY #30 tabs 11/11/21 11/20/21 11/20/21 Rx albuterol sulfate 2.5 mg inhalation Q4H PRN 11/20/21 11/20/21 11/16/21 History Shortness Of Breath Or Wheezing amino acids-protein hydrolysate 15 1 ea PO BID 11/20/21 11/20/21 11/20/21 History gram-101 kcal/30 mL oral liquid aspirin 325 mg tablet 325 mg PO BID 11/20/21 11/20/21 11/20/21 History bisacodyl 10 mg rectal suppository 10 mg CA DAILY PRN Constipation 11/20/21 11/20/21 Unknown History (Dulcolax (bisacodyl)) cefdinir 300 mg capsule 300 mg PO BID 11/20/21 11/20/21 11/20/21 History cholecalciferol (vitamin D3) 1,250 1,250 mcg PO Q7D 11/20/21 11/20/21 Unknown History mcg (50,000 unit) capsule fexofenadine 60 mg tablet 60 mg PO Q12H 11/20/21 11/20/21 Unknown History magnesium hydroxide 400 mg/5 mL 30 ml PO DAILY PRN Constipation 11/20/21 11/20/21 11/14/21 History oral suspension (Milk of Magnesia) sodium phosphates 19 gram-7 118 ml CA DAILY PRN Constipation 11/20/21 11/20/21 Unknown History gram/118 mL enema (Fleet Enema) Allergies Allergy/AdvReac Type Severity Reaction Status Date / Time No Known Allergies Allergy Verified 11/20/21 11:17 Current Medications Generic Name Dose Route Start Last Admin Trade Name Freq PRN Reason Stop Dose Admin Dextrose 1,000 mls @ 100 mls/hr 11/20/21 11:00 11/20/21 11:30 D10w IV 100 mls/hr .Q10H CINTIA Administration PFSH Anesthesia Medical History BPH (benign prostatic hyperplasia) CVA (cerebral vascular accident) Diabetes mellitus type 2 in nonobese Displaced fracture of right femoral neck Fall Hypertension Peripheral artery disease Subdural hematoma Surgical History H/O right inguinal hernia repair S/P cholecystectomy Family History Other Cancer Diabetes Social History Smoking and tobacco status: current every day smoker Alcohol intake: never Lives independently: Yes Household members: none Data Anesthesia : 11/20/21 10:14 11/20/21 12:04 Short CBC 11/20/21 Range/Units 10:14 WBC 21.5 H (4.0-10.0) 10^3/uL Hgb 11.8 (11.7-16.6) g/dL Hct 39.4 L (42.0-52.0) % MCV 90.4 (80-94) fl Plt Count 535 H (130-400) 10^3/cmm Neut % (Auto) 88.2 % Neut # (Auto) 18.94 H (1.8-7.7) 10^3/uL BMP 11/20/21 11/20/21 11/20/21 10:14 11:03 12:04 Sodium Cancelled 139 147 H Potassium Cancelled > 10.7 H* 8.1 H* D Chloride Cancelled 109 H 115 H Carbon Dioxide Cancelled 24 23 BUN Cancelled 67 H 57 H Creatinine Cancelled 2.6 H 2.6 H Glucose Cancelled 152 H 77 Calcium Cancelled 10.1 12.9 H Liver Function 11/20/21 11/20/21 Range/Units 10:14 11:03 Total Bilirubin Cancelled 0.2 AST Cancelled 15 ALT Cancelled 16 Alkaline Phosphatase Cancelled 136 H Albumin Cancelled 3.3 L Urine 11/20/21 Range/Units 11:00 Urine Color Yellow (Yellow) Urine Appearance Clear (CLEAR) Urine pH 5 (5-7) Ur Specific [place] 1.015 (1.005-1.030) Urine Protein Neg (Negative) Urine Glucose (UA) Norm (Normal) Urine Ketones 1+ H (Negative) Urine Nitrate Negative (Negative) Urine Bilirubin Neg (Negative) Ur Leukocyte Esterase Trace H (Negative) Urine RBC 0-4 H (0-2) /hpf Urine WBC 0-4 H (0-5) /hpf ABG 11/20/21 11:06 Specimen Type Arterial Sample Site Radial, right ABG pH 7.32 L ABG pCO2 42.4 ABG pO2 207.0 H ABG HCO3 21.6 L ABG O2 Saturation > 100.0 ABG Base Excess -4.3 L A-a O2 Gradient Not Reportable O2 Delivery Device Oxy mask O2 Liters/Min 6.0 Microbiology 11/20/21 11:05 Blood Culture - Preliminary Blood SPECIMEN COLLECTED 11/20/21 11:03 Blood Culture - Preliminary Blood SPECIMEN COLLECTED Cardiac Studies: Echocardiogram 11/05/21
--- NOTE | 2021-11-20 17:26 | ANE.PACU2 ---
Inpatient post-anesthesia follow up: Airway intact: Yes Vital signs: Temperature 97.9 F Pulse Rate 78 Respiratory Rate 14 Blood Pressure 128/62 Pulse Oximetry 96 Oxygen Delivery Me thod Aerosol Mask Oxygen Flow Rate 6 Fraction of Inspir ed Oxygen Hydration adequate: Yes Nausea and vomiting: No Pain level: 2 Mental status: Baseline Additional Comments: To ICU
--- NOTE | 2021-11-20 17:27 | PM.OP ---
Operative Report Date of procedure: November 20, 2021 Pre-op diagnosis: Preop Diagnosis hyperkalemia in need of emergent dialysis Post-op diagnosis: same Procedure done: Attempted left and right femoral vein hemodialysis placement Left internal jugular temporary hemodialysis catheter placement Implants: Temporary hemodialysis catheter Surgeon: Dr. Shaggy Groves DO Anesthesia: MAC Estimated blood loss (mL): 5 Complications: Catheter placement into presacral space Brief History: Patient came in with potassium greater than 10. Emergent hemodialysis access was needed. Procedure: Under sterile conditions, I attempted access was made into the right femoral vein. No axis could be found. Access was then attempted on the left side. I got return of dark red nonpulsatile blood. The guidewire advanced easily. I then serially dilated and placed a temporary hemodialysis catheter. I was unable to get any blood return. I took the patient to CT and it was found that the catheter went into the presacral space. I spoke with radiologist and it did not appear there was any bowel damage. Catheter was then removed. Patient was taken to the OR placed on the OR table in the supine position. The left neck was inspected prepped and draped in usual sterile fashion. Timeout was performed, all present were in agreement. Under ultrasound guidance access was obtained in the left internal jugular vein. Guidewire was then advanced. C arm fluoroscopy confirmed correct position. A small margarito incision was then made on the insertion needle. Serial dilation was performed over the guidewire. The catheter was then placed and confirmed the correct position by C arm fluoroscopy. Both lines of the catheter were flushed with heparinized saline. The catheter was sewn into place using 3-0 nylon in an interrupted fashion.
[2021-11-20 18:33] LABS: Blood Urea Nitrogen 59 mg/dL (8-23); Carbon Dioxide 24 mmol/L (22-29); Chloride 114 mmol/L (98-107); Glucose 146 mg/dL (65-115); Osmolality Calculated 317 mOsm/kg (285-295); Sodium 144 mmol/L (136-145)
[2021-11-20 18:44] LABS: Hepatitis B Surface AB 26.3 (11.5-1000); Hepatitis B Surface Antigen Non-Reactive (Nonreactive)
[2021-11-20 18:58] LABS: Calcium 13.7 mg/dL (8.5-10.5)
--- NOTE | 2021-11-20 19:46 | PM.HP ---
Providers/Chief Complaint Admitting Physician: Ben De La Rosa MD Primary Care Provider: Emmanuel He MD Chief Complaint: MENTAL STATUS CHANGES/ DEHYDRATION/ DIARRHEA History of Present Illness Edmond Calvert is a 75 year old male lives at [facility] and has history of stroke, dysarthria, dysphagia, left-sided weakness, residual right-sided weakness urinary retention diabetes hypertension and recently fell and broke his right hip. Patient underwent right hip fracture hemiarthroplasty by Shaggy Groves. He was found to have NSTEMI but declined intervention. Today the patient came in with acute renal failure, acute hyperkalemia to 10 and was intended to have voiding trial following discharge on 11/11/2021 with a Hardy Patient was noted not to have a Hardy upon arrival today with urinary retention,, dehydration, hyperkalemia and acute renal failure Review of Systems Narrative: Unable to be obtained with much reliability. Patient tells me he does not know why he is here or how he feels. He does deny pain Medications/Allergies Home Medications Medication Instructions Recorded Confirmed Last Taken Type hydrocodone 10 mg-acetaminophen 1 tab PO Q8H PRN Pain, Moderate 06/27/19 11/20/21 11/17/21 History 325 mg tablet magnesium oxide 400 mg (241.3 mg 400 mg PO BID #6 tabs 06/29/19 11/20/21 11/20/21 Rx magnesium) tablet azelastine 137 mcg (0.1 %) nasal 1 spray intranasal BID 11/04/21 11/20/21 11/20/21 History spray aerosol insulin glargine U-300 conc 300 20 unit SUBCUT BID 11/04/21 11/20/21 11/20/21 History unit/mL (1.5 mL) subcutaneous pen (Toujeo SoloStar U-300 Insulin) metformin 1,000 mg tablet 1,000 mg PO BID 11/04/21 11/20/21 11/20/21 History metoprolol tartrate 25 mg tablet 25 mg PO DAILY 11/04/21 11/20/21 11/20/21 History potassium chloride 20 mEq 20 meq PO BID 11/04/21 11/20/21 11/20/21 History tablet,extended release(part/cryst) calcium carbonate 600 mg-vitamin 1 ea PO BID 30 days #60 tabs 11/09/21 11/20/21 Unknown Rx D3 10 mcg (400 unit) tablet atorvastatin 40 mg tablet 40 mg PO BEDTIME #90 tabs 11/10/21 11/20/21 11/19/21 Rx fluconazole 200 mg tablet 200 mg PO DAILY 14 days #14 tabs 11/10/21 11/20/21 11/20/21 Rx tamsulosin 0.4 mg capsule 0.8 mg PO DAILY #30 caps 11/10/21 11/20/21 11/19/21 Rx clopidogrel 75 mg tablet 75 mg PO DAILY #30 tabs 11/11/21 11/20/21 11/20/21 Rx albuterol sulfate 2.5 mg inhalation Q4H PRN 11/20/21 11/20/21 11/16/21 History Shortness Of Breath Or Wheezing amino acids-protein hydrolysate 15 1 ea PO BID 11/20/21 11/20/21 11/20/21 History gram-101 kcal/30 mL oral liquid aspirin 325 mg tablet 325 mg PO BID 11/20/21 11/20/21 11/20/21 History bisacodyl 10 mg rectal suppository 10 mg RI DAILY PRN Constipation 11/20/21 11/20/21 Unknown History (Dulcolax (bisacodyl)) cefdinir 300 mg capsule 300 mg PO BID 11/20/21 11/20/21 11/20/21 History cholecalciferol (vitamin D3) 1,250 1,250 mcg PO Q7D 11/20/21 11/20/21 Unknown History mcg (50,000 unit) capsule fexofenadine 60 mg tablet 60 mg PO Q12H 11/20/21 11/20/21 Unknown History magnesium hydroxide 400 mg/5 mL 30 ml PO DAILY PRN Constipation 11/20/21 11/20/21 11/14/21 History oral suspension (Milk of Magnesia) sodium phosphates 19 gram-7 118 ml RI DAILY PRN Constipation 11/20/21 11/20/21 Unknown History gram/118 mL enema (Fleet Enema) Allergies Allergy/AdvReac Type Severity Reaction Status Date / Time No Known Allergies Allergy Verified 11/20/21 11:17 PFSH Acute PFSH: Medical History BPH (benign prostatic hyperplasia) CVA (cerebral vascular accident) Diabetes mellitus type 2 in nonobese Displaced fracture of right femoral neck Fall Hypertension Peripheral artery disease Subdural hematoma Surgical History H/O right inguinal hernia repair S/P cholecystectomy Family History Other Cancer Diabetes Social History Smoking and tobacco status: current every day smoker Alcohol intake: never Lives independently: Yes Household members: none Vitals/I&O/Wt Last Vital Signs Temp 97.6 F 11/20/21 17:46 Pulse 93 11/20/21 18:15 Resp 12 11/20/21 18:15 BP 103/57 11/20/21 18:15 Pulse Ox 95 11/20/21 18:15 O2 Del Method 11/20/21 17:46 O2 Flow Rate 6 11/20/21 11:09 11/20/21 11/20/21 11/20/21 06:59 14:59 22:59 Intake Total 1050 / 1050 Balance 1050 / 1050 Weight last 48 hrs Weight 49.895 kg Weight 49.895 kg Physical Exam Narrative: General well-developed well-nourished black man in no acute cardiopulmonary distress he is eyes open but not tracking well CV regular rate and rhythm Lungs clear to auscultation bilateral abdomen soft nontender Calves no edema Skin warm and dry Urinary Catheter Management: Hardy Latex Free: Cath Placed During This Visit: no Data : 11/20/21 10:14 11/20/21 17:49 Other Labs: Urine negative for red cells or white cells Micro: Microbiology 11/20/21 11:05 Blood Culture - Preliminary Blood SPECIMEN COLLECTED 11/20/21 11:03 Blood Culture - Preliminary Blood SPECIMEN COLLECTED A&P Assessment and plan (1) Hyperkalemia: Patient with acute renal failure and hyperkalemia noted to be on metformin, magnesium, potassium at home Offending medications stopped. Hardy is in place. Dialysis at this time to remove excess potassium Status: Acute (2) Urine retention: Hardy to remain in place. Status: Acute (3) Diabetes mellitus type 2 in nonobese: Cachectic man stop metformin Status: Acute (4) CVA (cerebral vascular accident): Dysphagia and dysphagia noted currently n.p.o. Will advance diet as tolerated speech therapy eval Status: Acute (5) BPH (benign prostatic hyperplasia): As above leave Hardy in Status: Acute Plan Gave the patient 2 L of saline. Wean Levophed as tolerated with dialysis. Attestations Medical Necessity Statement*: Patient admitted to the ICU for dialysis, and management of critical hyperkalemia Critical Care Time: 55 minutes critical care time Coding Level of Care Code Acute Exhibit Designer for Annabelg Fwd History Detailed Exam Detailed Medical Decision Making High Complexity Diagnoses Hyperkalemia E87.5 Urine retention R33.9 Diabetes mellitus type 2 in nonobese E11.9 CVA (cerebral vascular accident) I63.9 BPH (benign prostatic hyperplasia) N40.0
--- NOTE | 2021-11-20 20:30 | PC.NURSE ---
Puncture wounds L and R groin have puncture wounds. Removed sandbag and replaced dressings. Small amount of bloody drainage noted on old dressing and oozing from sites. Surrounding skin is warm. tolerated well.
--- NOTE | 2021-11-20 21:03 | PC.NURSE ---
@2030 IV infiltrated Levophed and Normal Saline stopped. IV catheter left in place. attempted to aspirate contents. 1ml aspirated. Warm compress applied. limb elevated. Dr. Meza notified. Pharmacy notified. no new orders at this time.
--- NOTE | 2021-11-20 21:45 | PC.NURSE ---
Addendum entered by Gabriella Cunningham RN 11/21/21 01:18: Dr. Meza came to the unit to place a central line. Informed consent from Harriett Jean Baptiste in the chart. Original Note: Unable to obtain IV access 5 RNs attempted to obtain IV access. No successful attempts. Dr. Irvin notified.
--- NOTE | 2021-11-20 22:10 | PC.NURSE ---
@2100 Low temperature Axillary temp 94.0. Applied forced air warming blanket. temp @2210 96.5 axillary.
--- NOTE | 2021-11-20 23:14 | XRR_ITS ---
PROCEDURE INFORMATION: Exam: XR Abdomen Exam date and time: 11/20/2021 11:27 PM Age: 75 years old Clinical indication: Device placement; Non-vascular device; Other: Line placement TECHNIQUE: Imaging protocol: Radiologic exam of the abdomen. Views: Frontal supine view of the abdomen. 1 View. COMPARISON: CT abdomen pelvis con [id number] 11/20/2021 1:48 PM FINDINGS: Tubes, catheters and devices: Left femoral central venous catheter seen over the left pelvis. Gastrointestinal tract: Normal. No bowel dilation. Bones/joints: Right hip arthroplasty changes seen with surgical анна overlying the lateral aspect of the hip. XR/XR KUB portable [id number] IMPRESSION: 1. Left femoral central venous catheter seen over the left pelvis. 2. Right hip arthroplasty changes seen with surgical анна overlying the lateral aspect of the hip.
--- NOTE | 2021-11-20 23:30 | PM.ACPR ---
Acute Procedures Central Line Placement: Left Femoral: Time out performed: Yes Patient placed on monitor/pulse ox: Yes MD prep: mask, gown, gloves and other Central line prep: Povidone-Iodine 1%, Chlorhexidine scrub and sterile drapes applied Ultrasound used for placement: Yes Central line lumen inserted: triple Post procedure: sutured in place, good blood return, all ports aspirated, flushed, capped and sterile dressing applied Post procedure x-ray: tip of catheter in good position Patient tolerated procedure: well and no complications Complications: none Additional comments: I was called to place a central line because patient was requiring vasopressors along fluids for low blood pressure, 3 nurses tried to get IV access but we were not able to do so Consent was taken from his friend Patient also agreed for the procedure Left femoral central line triple-lumen catheter was placed under ultrasound guidance under sterile environment in the presence of 2 ICU nurses I will obtain abdominal x-ray to confirm the position of central line
[2021-11-20] MEDS: morphine 4 mg/mL SDV 1 mL 2 MG IVP (23:50)
[2021-11-21] VITALS (103 sets, daily range): BP systolic 102–166; BP diastolic 44–91; PULSE 83–112; RESP 3–26; TEMP 36.6–37.2; O2SAT 93–100
[2021-11-21 00:23] LABS: Anion Gap 10.4 (5-19); Blood Urea Nitrogen 13 mg/dL (8-23); Carbon Dioxide 30 mmol/L (22-29); Chloride 105 mmol/L (98-107); Glucose 82 mg/dL (65-115); Osmolality Calculated 291 mOsm/kg (285-295); Potassium 4.4 mmol/L (3.5-5.1); Sodium 141 mmol/L (136-145)
[2021-11-21] MEDS: sodium chloride 0.9% 1,000 ML 150 ML IV (00:40)
--- NOTE | 2021-11-21 01:14 | XRR_ITS ---
PROCEDURE INFORMATION: Exam: XR Chest Exam date and time: 11/21/2021 1:57 AM Age: 76 years old Clinical indication: Shortness of breath; Additional info: Fluid on lungs TECHNIQUE: Imaging protocol: Radiologic exam of the chest. Views: 1 view. COMPARISON: CR XR chest 1V portable [id number] 11/20/2021 10:29 AM FINDINGS: Lungs: There are normal lung volumes without interstitial or airspace opacities. Pleural spaces: There are no pleural effusions or pneumothorax. Heart/Mediastinum: The heart size is normal. There is a mildly tortuous thoracic aorta. The trachea is in the midline. Bones/joints: No acute abnormalities. Small degenerative osteophytes are seen throughout the thoracic spine. Soft tissues: Multiple external densities are seen overlying the chest, limiting assessment. XR/XR chest 1V portable [id number] IMPRESSION: No chest radiographic evidence of acute cardiopulmonary disease.
--- NOTE | 2021-11-21 01:29 | PC.NURSE ---
Physician Notification Dr. Meza made aware that pt had crackles in his lungs. SpO2 95%. New order to stop NS @150ml/hr fluids and nonadmin 1,000 mL NS bolus. New order for portable chest x-ray.
[2021-11-21 05:32] LABS: Alanine Aminotransferase 11 U/L (0-41); Albumin Level 2.4 g/dL (3.5-5.2); Alkaline Phosphatase 98 U/L (40-130); Anion Gap 10.8 (5-19); Aspartate Amino Transferase 17 U/L (0-40); Blood Urea Nitrogen 14 mg/dL (8-23); Calcium 8.6 mg/dL (8.5-10.5); Carbon Dioxide 29 mmol/L (22-29); Chloride 106 mmol/L (98-107); Glucose 69 mg/dL (65-115); Magnesium 1.9 mg/dL (1.7-2.3); Osmolality Calculated 291 mOsm/kg (285-295); Potassium 4.8 mmol/L (3.5-5.1); Sodium 141 mmol/L (136-145); Total Bilirubin 0.3 mg/dL (0.15-1.2); Total Protein 5.4 g/dL (6.6-8.7)
[2021-11-21 05:33] LABS: Cortisol Random 14.42 ug/dL (2.47-19.5)
[2021-11-21 06:27] LABS: Basophils # 0.1 10^3/uL (0.0-0.1); Basophils % 0.6 %; Eosinophils # 0.1 10^3/uL (0.0-0.8); Eosinophils % 0.5 %; Hematocrit 22.1 % (42.0-52.0); Lymphocytes # 2.2 10^3/uL (0.8-4.8); Lymphocytes % 15.6 %; Mean Corpuscular HGB Conc 30.3 g/dL (30.0-36.0); Mean Corpuscular Hemoglobin 26.8 pg (28.0-34.0); Mean Corpuscular Volume 88.4 fl (80-94); Mean Platelet Volume 9.8 fL (7.4-10.4); Monocytes # 0.5 10^3/uL (0.2-0.9); Monocytes % 3.3 %; Neutrophils # 11.44 10^3/uL (1.8-7.7); Neutrophils % 79.6 %; Nucleated Red Blood Cells % 0 %; Platelet Count 249 10^3/cmm (130-400); White Blood Count 14.4 10^3/uL (4.0-10.0)
[2021-11-21 07:13] LABS: Hemoglobin 6.7 g/dL (11.7-16.6)
--- NOTE | 2021-11-21 08:15 | PM.PN ---
Vitals/I&O/Wt Last Vital Signs Temp 98.5 F 11/21/21 05:50 Pulse 95 11/21/21 06:32 Resp 11 L 11/21/21 06:00 BP 124/44 11/21/21 06:00 Pulse Ox 97 11/21/21 06:00 O2 Del Method 11/21/21 06:00 O2 Flow Rate 6 11/20/21 11:09 11/20/21 11/21/21 11/21/21 22:59 06:59 14:59 Intake Total 1707.185 / 1707.185 463.1 / 2170.285 1000 / 1000 Output Total 125 / 125 Balance 1707.185 / 1707.185 338.1 / 2045.285 1000 / 1000 Weight last 48 hrs Weight 49.895 kg Weight 49.895 kg Physical Exam Narrative: General well-developed well-nourished black man in no acute cardiopulmonary distress Eyes open and tracking speech is garbled but mostly intelligible and he nods and shakes affirmative along with saying yes and no together sensibly CV regular rate and rhythm left chest dialysis catheter noted Lungs clear to auscultation bilateral abdomen soft nontender Calves no edema Skin warm and dry Urinary Catheter Management: Hardy Latex Free: Cath Placed During This Visit: no Reason for Continuing Indwelling Catheter: Accurate Measurement of Urinary Output in Critically Ill Patients Data : 11/21/21 06:15 11/21/21 03:20 Micro: Microbiology 11/20/21 14:43 Occult Blood (FIT) - Final Stool 11/20/21 11:05 Blood Culture - Preliminary Blood SPECIMEN COLLECTED 11/20/21 11:03 Blood Culture - Preliminary Blood SPECIMEN COLLECTED A&P Assessment and plan (1) Hyperkalemia: Resolved Hold metformin with hyperkalemia, cachexia and recent renal failure would recommend using either insulin or a sulfonylurea Currently with low urine output 100 cc overnight we will resume IV fluids Status: Acute (2) Urine retention: Haryd to remain in place. Status: Acute (3) Diabetes mellitus type 2 in nonobese: Cachectic man stop metformin Status: Acute (4) CVA (cerebral vascular accident): Dysphagia and dysphagia noted currently n.p.o. Will advance diet as tolerated speech therapy eval Status: Acute (5) BPH (benign prostatic hyperplasia): As above leave Hardy in Resume tamsulosin Status: Acute Plan Resume maintenance IV fluids consult speech therapy Attestations Medical Necessity Statement*: Patient will be initiated on diet as tolerated via speech therapy and can transfer to the medical floor Coding Level of Care Code Acute Security Risk Analyst for Mary Lozoya History Detailed Exam Detailed Medical Decision Making High Complexity Diagnoses Hyperkalemia E87.5 Urine retention R33.9 Diabetes mellitus type 2 in nonobese E11.9 CVA (cerebral vascular accident) I63.9 BPH (benign prostatic hyperplasia) N40.0
[2021-11-21 09:17] LABS: Glucose Point of Care 58 mg/dL (70-110)
[2021-11-21] MEDS: sodium chloride 0.9% 1,000 ML 500 ML IV (09:32)
--- NOTE | 2021-11-21 09:39 | P.PN_ITS ---
Subjective Subjective: Patient resting comfortably Vitals/I&O/Wt Last Vital Signs Temp 97.9 F 11/21/21 08:10 Pulse 91 11/21/21 08:10 Resp 15 11/21/21 08:10 BP 123/47 11/21/21 08:10 Pulse Ox 97 11/21/21 08:10 O2 Del Method 11/21/21 08:10 O2 Flow Rate 6 11/20/21 11:09 11/20/21 11/21/21 11/21/21 22:59 06:59 14:59 Intake Total 3607.185 / 3607.185 463.1 / 4070.285 1000 / 1000 Output Total 0 / 0 125 / 125 Balance 3607.185 / 3607.185 338.1 / 3945.285 1000 / 1000 Weight last 48 hrs Weight 123 lb 10.869 oz Weight 110 lb Weight 110 lb Physical Exam Narrative: General: No acute distress Abdomen soft, nontender, nondistended, no guarding rebound or masses Skin bilateral groins and left neck without erythema exudate or active bleeding Urinary Catheter Management: Hardy Latex Free: Cath Placed During This Visit: no Reason for Continuing Indwelling Catheter: Accurate Measurement of Urinary Output in Critically Ill Patients Data : 11/21/21 06:15 11/21/21 03:20 Micro: Microbiology 11/20/21 14:43 Occult Blood (FIT) - Final Stool 11/20/21 11:05 Blood Culture - Preliminary Blood SPECIMEN COLLECTED 11/20/21 11:03 Blood Culture - Preliminary Blood SPECIMEN COLLECTED A&P Assessment and plan (1) Hyperkalemia: Status: Acute Plan Status post placement of left internal jugular vein temporary hemodialysis catheter. Patient underwent hemodialysis successfully yesterday. No further acute surgical intervention. Attestations Medical Necessity Statement*: Further hospitalization per hospitalist Coding Level of Care Code Acute Chief Controller for g Fwd Diagnoses Hyperkalemia E87.5
[2021-11-21] MEDS: dextrose 5%-sod chloride 0.45% 1,000 ML 100 ML IV ×2 (10:03→20:53)
[2021-11-21] MEDS: FUROsemide 10 mg/mL SDV 2mL 20 MG IVP (10:29)
--- NOTE | 2021-11-21 11:00 | P.PN_ITS ---
Subjective Subjective: minimal urine output overnight, received IV lasix this AM, now 600 ml urine in posadas 850 ml emptied in OR not recorded Medications: Medication Review Details: off pressors Vitals/I&O/Wt Last Vital Signs Temp 97.9 F 11/21/21 08:10 Pulse 91 11/21/21 08:10 Resp 15 11/21/21 08:10 BP 123/47 11/21/21 08:10 Pulse Ox 97 11/21/21 08:10 O2 Del Method 11/21/21 08:10 O2 Flow Rate 6 11/20/21 11:09 11/20/21 11/21/21 11/21/21 22:59 06:59 14:59 Intake Total 3607.185 / 3607.185 463.1 / 4070.285 1516.667 / 1516.667 Output Total 0 / 0 125 / 125 Balance 3607.185 / 3607.185 338.1 / 3945.285 1516.667 / 1516.667 Weight last 48 hrs Weight 56.1 kg Weight 49.895 kg Weight 49.895 kg Physical Exam Const: COMMON NORMALS: no acute distress and alert Neuro: SENSORIUM/ORIENTATION: Yes alert Urinary Catheter Management: Posadas Latex Free: Cath Placed During This Visit: no Reason for Continuing Indwelling Catheter: Accurate Measurement of Urinary Output in Critically Ill Patients Data : 11/21/21 06:15 11/21/21 03:20 Micro: Microbiology 11/20/21 14:43 Occult Blood (FIT) - Final Stool 11/20/21 11:05 Blood Culture - Preliminary Blood SPECIMEN COLLECTED 11/20/21 11:03 Blood Culture - Preliminary Blood SPECIMEN COLLECTED Other data: seen via telehealth with assistance of RN at bedside A&P Assessment and plan (1) Hyperkalemia: Status: Acute Plan 1. Acute kidney injury, history of urine retention. Did not have posadas on presentation. OR emptied 850 ml clear urine. Suspect combination of volume depletion and obstruction as cause of SALINA. 2. Hyperkalemia (was receiving replacement orally) - resolved 3. Hypercalcemia - resolved 4. Mild hypernatremia (hypovolemic) - resolved 5. Anemia due to blood loss related to dialysis catheter placement + IVF hydration Rec:will not require dialysis today. Repeat Hb, type and screen. Transfuse pRBC if Hb < 7 confirmed Attestations Medical Necessity Statement*: see above Time Spent in Patient Care: 16 - 35 minutes Coding Level of Care Code Acute Tire Builder Heavy Service for Chg Fwd Diagnoses Hyperkalemia E87.5
[2021-11-21 11:08] LABS: Glucose Point of Care 83 mg/dL (70-110)
[2021-11-21 12:07] LABS: Basophils # 0.1 10^3/uL (0.0-0.1); Basophils % 0.5 %; Eosinophils # 0.1 10^3/uL (0.0-0.8); Eosinophils % 0.4 %; Hematocrit 22.4 % (42.0-52.0); Lymphocytes # 2.3 10^3/uL (0.8-4.8); Lymphocytes % 17.3 %; Mean Corpuscular HGB Conc 31.3 g/dL (30.0-36.0); Mean Corpuscular Hemoglobin 27.5 pg (28.0-34.0); Mean Corpuscular Volume 87.8 fl (80-94); Mean Platelet Volume 9.6 fL (7.4-10.4); Monocytes # 0.5 10^3/uL (0.2-0.9); Monocytes % 3.9 %; Neutrophils # 10.36 10^3/uL (1.8-7.7); Neutrophils % 77.5 %; Nucleated Red Blood Cells % 0 %; Platelet Count 231 10^3/cmm (130-400); Red Blood Count 2.55 10^6/uL (4.1-5.3); Red Cell Distribution Width 14.8 % (12.1-15.1); White Blood Count 13.4 10^3/uL (4.0-10.0)
[2021-11-21] MEDS: morphine 4 mg/mL SDV 1 mL 2 MG IVP ×2 (15:53→20:54)
[2021-11-21] MEDS: artificial tears Op Oint 3.5 gm 1 APPLIC EYE-LEFT ×2 (16:41→20:54)
[2021-11-21 18:12] LABS: Glucose Point of Care 103 mg/dL (70-110)
--- NOTE | 2021-11-21 18:33 | PC.NURSE ---
SHIFT SUMMARY: PT HAS HAD A PRODUCTFUL SHIFT. THROUGHOUT THE SHIFT PT HAS BECOME MORE ALERT AND RESPONSIVE. VITAL SIGNS HAVE BEEN AND ARE CURRENTLY WNL. PT HAS HAD ONE COMPLAINT OF PAIN THAT WAS TREATED WITH PRN MEDICATION. PT HAS BEEN TURNED EVERY TWO HOURS. OTHER THEN SURGICAL INCISIONSX3 PT DOES NOT HAVE ANY SKIN ISSUES. PT IS CURRENTLY ON HIS BACK, SITTING UP, WATCHING TV. PT DOES NOT HAVE ANY REQUESTS OR COMPLAINTS AT THIS TIME. PT IS ALERT AND ORIENTATED X4. PTS SPEECH IS SLURRED AND SOMEWHAT UNCLEAR ALONG WITH SOME R SIDED FACIAL DROOP AND WEAKNESS; THIS IS NORMAL FOR PT ACCORDING TO PTS DPOA. PTS DPOA ALSO STATES THAT THE PT APPEARS TO BE CLOSE TO HIS BASELINE. WILL CONTINUE TO MONITOR.
[2021-11-21] MEDS: atorvastatin 40 mg Tablet PO (20:53)
[2021-11-21 21:00] LABS: Glucose Point of Care 109 mg/dL (70-110)
[2021-11-22] VITALS (21 sets, daily range): BP systolic 116–150; BP diastolic 43–96; PULSE 78–104; RESP 12–25; TEMP 36.3–37.1; O2SAT 94–100
[2021-11-22 05:12] LABS: Basophils # 0.1 10^3/uL (0.0-0.1); Basophils % 0.6 %; Eosinophils # 0.2 10^3/uL (0.0-0.8); Eosinophils % 1.6 %; Hematocrit 21.2 % (42.0-52.0); Lymphocytes # 3.2 10^3/uL (0.8-4.8); Lymphocytes % 28.9 %; Mean Corpuscular HGB Conc 30.7 g/dL (30.0-36.0); Mean Platelet Volume 10.6 fL (7.4-10.4); Monocytes # 0.6 10^3/uL (0.2-0.9); Monocytes % 5.2 %; Neutrophils # 6.95 10^3/uL (1.8-7.7); Neutrophils % 63.3 %; Nucleated Red Blood Cells % 0 %; Platelet Count 216 10^3/cmm (130-400); Red Blood Count 2.41 10^6/uL (4.1-5.3); Red Cell Distribution Width 14.6 % (12.1-15.1)
[2021-11-22 05:48] LABS: Alanine Aminotransferase 14 U/L (0-41); Albumin Level 2.4 g/dL (3.5-5.2); Alkaline Phosphatase 92 U/L (40-130); Anion Gap 9.8 (5-19); Aspartate Amino Transferase 22 U/L (0-40); Blood Urea Nitrogen 16 mg/dL (8-23); Calcium 7.6 mg/dL (8.5-10.5); Carbon Dioxide 26 mmol/L (22-29); Chloride 104 mmol/L (98-107); Globulin 2.8 g/dL (1.3-4.6); Glucose 98 mg/dL (65-115); Osmolality Calculated 283 mOsm/kg (285-295); Potassium 3.8 mmol/L (3.5-5.1); Sodium 136 mmol/L (136-145); Total Bilirubin 0.3 mg/dL (0.15-1.2); Total Protein 5.2 g/dL (6.6-8.7)
[2021-11-22 05:55] LABS: Creatinine Clr Calc Pharmacy 40.9436
[2021-11-22 05:59] LABS: Hemoglobin 6.5 g/dL (11.7-16.6)
[2021-11-22] MEDS: dextrose 5%-sod chloride 0.45% 1,000 ML 100 ML IV ×2 (06:22→19:57)
[2021-11-22] MEDS: cholecalciferol (vitamin D3) 1,000 unit Tablet 2000 UNIT PO (08:21)
[2021-11-22] MEDS: tamsulosin 0.4 mg Capsule 0.8 MG PO (08:22)
[2021-11-22] MEDS: oxyCODONE-APAP 5-325 mg Tablet 1 TAB PO ×2 (08:22→17:39)
[2021-11-22] MEDS: artificial tears Op Oint 3.5 gm 1 APPLIC EYE-LEFT ×2 (08:24→15:32)
--- NOTE | 2021-11-22 08:29 | P.PN_ITS ---
Subjective Subjective: Patient awaiting transfer to stepdown unit but rhythm overnight has been reassuring and electrolytes remain stable as is the creatinine. Patient is aware of his surroundings today and interactive. He did have notable drop in hemoglobin down to 6.5 corresponding to drop in albumin and protein. So me portion of this due to hydration. Patient has not had a bowel movement since arrival Medications: Reviewed: Yes Vitals/I&O/Wt Last Vital Signs Temp 98.7 F 11/22/21 08:00 Pulse 89 11/22/21 08:00 Resp 12 11/22/21 08:22 BP 143/77 11/22/21 08:00 Pulse Ox 99 11/22/21 08:22 O2 Del Method 11/22/21 08:00 O2 Flow Rate 6 11/20/21 11:09 11/21/21 11/22/21 11/22/21 22:59 06:59 14:59 Intake Total 1050 / 2566.667 2335.333 / 4902.000 Output Total 1350 / 1350 525 / 1875 Balance -300 / 1226.454 9950.333 / 3027.000 Weight last 48 hrs Weight 54 kg Weight 56.1 kg Weight 49.895 kg Weight 49.895 kg Physical Exam Narrative: General well-developed well-nourished black man in no acute cardiopulmonary distress Eyes open and tracking speech is garbled but mostly intelligible and he nods and shakes affirmative along with saying yes and no together sensibly patient interacted wanting to see my gold coin necklace. Much more interactive than previous visits CV regular rate and rhythm left neck dialysis catheter noted Lungs clear to auscultation bilateral abdomen soft nontender Calves no edema Skin warm and dry Urinary Catheter Management: Hardy Latex Free: Cath Placed During This Visit: no Reason for Continuing Indwelling Catheter: Accurate Measurement of Urinary Output in Critically Ill Patients Data : 11/22/21 03:50 11/22/21 03:50 Micro: Microbiology 11/20/21 11:05 Blood Culture - Preliminary Blood NEGATIVE TO DATE 11/20/21 11:03 Blood Culture - Preliminary Blood NEGATIVE TO DATE A&P Assessment and plan (1) Hyperkalemia: Resolved Hold metformin with hyperkalemia, cachexia and recent renal failure would recommend using either insulin or a sulfonylurea Currently with low urine output 100 cc overnight we will resume IV fluids Status: Acute (2) Urine retention: Hardy to remain in place. Status: Acute (3) Diabetes mellitus type 2 in nonobese: Cachectic man stop metformin Encourage p.o. intake Status: Acute (4) CVA (cerebral vascular accident): Dysphagia and dysphagia noted currently n.p.o. Will advance diet as tolerated speech therapy gina Patient's DPOA is also his speech therapist and knows him well. Diet started yesterday Status: Acute (5) BPH (benign prostatic hyperplasia): As above leave Hardy in Resume tamsulosin Status: Acute (6) Anemia: Iron studies and stool guaiacs to be obtained. Repeat hemoglobin due at 9 Status: Acute (7) Severe protein-calorie malnutrition: Patient with low albumin and low protein and severely underweight will bolster nutrition with food supplements Status: Acute Plan Resume maintenance IV fluids consult speech therapy Attestations Medical Necessity Statement*: Patient needs to be monitored to the hospital for any signs of bleeding Time Spent in Patient Care: 35 minutes spent in evaluation and coordination of care for this patient today Coding Level of Care Code Acute Eyewear Manufacturing Tech for Mary Fwdave History Detailed Exam Detailed Medical Decision Making High Complexity Diagnoses Hyperkalemia E87.5 Urine retention R33.9 Diabetes mellitus type 2 in nonobese E11.9 CVA (cerebral vascular accident) I63.9 BPH (benign prostatic hyperplasia) N40.0 Anemia D64.9 Severe protein-calorie malnutrition E43
[2021-11-22 09:18] LABS: Hematocrit 21.8 % (42.0-52.0); Hemoglobin 6.7 g/dL (11.7-16.6)
[2021-11-22 09:40] LABS: Iron 49 ug/dL (59-158); Percent Saturation 33.5 % (20-50); Total Iron Binding Capacity 146 mcg/dl; Unsaturated Iron Binding 97 ug/dL (112-347)
--- NOTE | 2021-11-22 10:00 | P.PN_ITS ---
Subjective Subjective: more alert. ate breakfast Vitals/I&O/Wt Last Vital Signs Temp 98.7 F 11/22/21 08:00 Pulse 89 11/22/21 08:00 Resp 12 11/22/21 08:22 BP 143/77 11/22/21 08:00 Pulse Ox 99 11/22/21 08:22 O2 Del Method 11/22/21 08:00 O2 Flow Rate 6 11/20/21 11:09 11/21/21 11/22/21 11/22/21 22:59 06:59 14:59 Intake Total 1050 / 2566.667 2335.333 / 4902.000 120 / 120 Output Total 1350 / 1350 525 / 1875 Balance -300 / 1155.591 8734.333 / 3027.000 120 / 120 Weight last 48 hrs Weight 54 kg Weight 56.1 kg Weight 49.895 kg Physical Exam Const: COMMON NORMALS: no acute distress and alert Extremity: COMMON NORMALS: no pedal edema Neuro: SENSORIUM/ORIENTATION: Yes alert Urinary Catheter Management: Posadas Latex Free: Cath Placed During This Visit: no Reason for Continuing Indwelling Catheter: Accurate Measurement of Urinary Output in Critically Ill Patients Data : 11/22/21 09:01 11/22/21 03:50 Micro: Microbiology 11/20/21 11:05 Blood Culture - Preliminary Blood NEGATIVE TO DATE 11/20/21 11:03 Blood Culture - Preliminary Blood NEGATIVE TO DATE Other data: seen via telehealth with assistance of RN at bedside A&P Assessment and plan (1) Hyperkalemia: seen via telemedicine with assistance of RN at bedside Status: Acute Plan 1. Acute kidney injury, history of urine retention. Did not have posadas on presentation. Suspect combination of volume depletion and obstruction as cause of SALINA. Now with excellent urine output, improved renal function 2. Hyperkalemia, Hypercalcemia, Mild hypernatremia (hypovolemic) - resolved 3. Anemia due to blood loss related to dialysis catheter placement + IVF hydration Rec: Unlikely to require dialysis. Remove IJ dialysis catheter 11/23 if he remains stable. Transfuse pRBC if Hb < 7 confirmed Attestations Medical Necessity Statement*: see above Time Spent in Patient Care: 16 - 35 minutes Coding Level of Care Code Acute Director Biostatistics for Mary Lozoya Diagnoses Hyperkalemia E87.5
[2021-11-22] MEDS: docusate sodium 100 mg Capsule PO ×2 (10:07→17:33)
[2021-11-22 12:34] LABS: Glucose Point of Care 171 mg/dL (70-110)
--- NOTE | 2021-11-22 16:31 | PC.NURSE ---
received from icu into room 277-1 via bed at 1600.sr on monitor.pt alert and oriented x 4.slurred speech.right sided weakness noted.oriented to room environment.instructed to notify staff for any pain,,sob...or for any conerns at all.
[2021-11-22 16:51] LABS: Glucose Point of Care 176 mg/dL (70-110)
[2021-11-22] MEDS: insulin lispro 100 unit/1 mL SUBCUT (17:33)
[2021-11-22 20:32] LABS: Glucose Point of Care 113 mg/dL (70-110)
[2021-11-22] MEDS: morphine 4 mg/mL SDV 1 mL 2 MG IVP (20:39)
[2021-11-22] MEDS: atorvastatin 40 mg Tablet PO (20:42)
[2021-11-23] VITALS (16 sets, daily range): BP systolic 100–165; BP diastolic 56–90; PULSE 100–115; RESP 11–22; TEMP 36.6–37.4; O2SAT 93–98
[2021-11-23] MEDS: morphine 4 mg/mL SDV 1 mL 2 MG IVP (02:54)
[2021-11-23] MEDS: dextrose 5%-sod chloride 0.45% 1,000 ML 100 ML IV (05:04)
[2021-11-23 06:35] LABS: Glucose Point of Care 165 mg/dL (70-110)
--- NOTE | 2021-11-23 08:10 | PM.PN ---
Subjective Subjective: confused. not reliable historian Medications: Reviewed: Yes Medication Review Details: Current Medications Acetaminophen (Acetaminophen 500 Mg Tablet) 1,000 mg PO Q6H PRN PRN Reason: MILD PAIN OR INCREASE TEMP Artificial Tears (Artificial Tears Op Oint 3.5 Gm) 1 applic EYE-LEFT TID [facility] Last Admin: 11/22/21 20:52 Dose: Not Given Aspirin (Aspirin 325 Mg Tablet) 325 mg PO DAILY [facility] Last Admin: 11/21/21 12:18 Dose: Not Given Atorvastatin Calcium (Atorvastatin 40 Mg Tablet) 40 mg PO BEDTIME [facility] Last Admin: 11/22/21 20:42 Dose: 40 mg Docusate Calcium (Docusate Calcium 240 Mg Capsule) 240 mg PO BID [facility] Last Admin: 11/22/21 17:25 Dose: 240 mg Docusate Sodium (Docusate Sodium 100 Mg Capsule) 100 mg PO BID [facility] Last Admin: 11/22/21 17:33 Dose: 100 mg Dextrose/Sodium Chloride (Dextrose 5%-Sod Chloride 0.45%) 1,000 mls @ 100 mls/hr IV .Q10H [facility] Last Admin: 11/23/21 05:04 Dose: 100 mls/hr Insulin Glargine (Insulin Glargine 100 Units/1 Ml) 10 unit SUBCUT BEDTIME [facility] Last Admin: 11/22/21 20:52 Dose: Not Given Insulin Human Lispro (Insulin Lispro 100 Unit/1 Ml) 0 unit SUBCUT WM&BEDTIME [facility]; Protocol Last Admin: 11/22/21 20:42 Dose: Not Given Lactulose (Lactulose Oral Liq 20 Gm/30 Ml Udc) 10 gm PO DAILY PRN PRN Reason: CONSTIPATION Morphine Sulfate (Morphine 4 Mg/Ml Sdv 1 Ml) 2 mg IVP Q4H PRN PRN Reason: SEVERE PAIN Last Admin: 11/23/21 02:54 Dose: 2 mg Non-Formulary Medication (Glucerna) 1 package PO BID [facility] Last Admin: 11/22/21 17:13 Dose: Not Given Ondansetron HCl (Ondansetron 2 Mg/Ml Sdv 2 Ml) 4 mg IVP Q6H PRN PRN Reason: NAUSEA AND VOMITING Oxycodone/Acetaminophen (Oxycodone-Apap 5-325 Mg Tablet) 1 tab PO Q6H PRN PRN Reason: MODERATE PAIN Last Admin: 11/22/21 17:39 Dose: 1 tab Tamsulosin HCl (Tamsulosin 0.4 Mg Capsule) 0.8 mg PO DAILY [facility] Last Admin: 11/22/21 08:22 Dose: 0.8 mg Vitamin D (Cholecalciferol (Vitamin D3) 1,000 Unit Tablet) 2,000 unit PO DAILY [facility] Last Admin: 11/22/21 08:21 Dose: 2,000 unit Vitals/I&O/Wt Last Vital Signs Temp 98.4 F 11/23/21 07:18 Pulse 103 H 11/23/21 07:18 Resp 16 11/23/21 07:18 BP 141/56 11/23/21 07:18 Pulse Ox 98 11/23/21 07:18 O2 Del Method 11/23/21 07:18 O2 Flow Rate 6 11/22/21 20:00 11/22/21 11/23/21 11/23/21 22:59 06:59 14:59 Intake Total 1000 / 1120 1000 / 2120 Output Total 1200 / 1200 1250 / 2450 Balance -200 / -80 -250 / -330 Weight last 48 hrs Weight 54.204 kg Weight 54 kg Physical Exam Narrative: comfortsble, vss, confused heent- nc/at, eomi, anicteric neck supple lungs clear heart reg, +AVILA abd soft, nt, nd, + bs ext no edema neuro confused Urinary Catheter Management: Hardy Latex Free: Cath Placed During This Visit: no Reason for Continuing Indwelling Catheter: Chronic Indwelling Urinary Catheter on Admission Data : 11/22/21 09:01 11/22/21 03:50 A&P Assessment and plan (1) Hyperkalemia: seen via telemedicine with assistance of RN at bedside Status: Acute Plan 76 yr old man w/ dm 1. Acute kidney injury- from obstruction and Prerenal -cr k improved after hd x 1 monitor chemistries 2. Anemia -per PMD =-ensure pt has had malignancy screening including colonoscopy and PSA 3. improved SALINA. Remove IJ dialysis catheter 4. bp okay 5. AMS per medicine Attestations Medical Necessity Statement*: ams, improved salina and hyperkalemia Time Spent in Patient Care: 16 - 35 minutes (>than 50% of time spent in counselling and/or direct pt care on unit). Coding Level of Care Code Acute Digital Operations Analyst for Chg Fwd Diagnoses Hyperkalemia E87.5
[2021-11-23] MEDS: oxyCODONE-APAP 5-325 mg Tablet 1 TAB PO ×3 (08:46→21:09)
[2021-11-23] MEDS: cholecalciferol (vitamin D3) 1,000 unit Tablet 2000 UNIT PO (08:46)
[2021-11-23] MEDS: tamsulosin 0.4 mg Capsule 0.8 MG PO (08:50)
[2021-11-23] MEDS: docusate sodium 100 mg Capsule PO (08:50)
--- NOTE | 2021-11-23 08:55 | PC.NURSE ---
patient requested meds to not be crushed patient was able to take medication one pill at a time with no difficulty
[2021-11-23 11:06] LABS: Alanine Aminotransferase 15 U/L (0-41); Albumin Level 2.2 g/dL (3.5-5.2); Alkaline Phosphatase 89 U/L (40-130); Anion Gap 11.6 (5-19); Aspartate Amino Transferase 20 U/L (0-40); Blood Urea Nitrogen 11 mg/dL (8-23); Calcium 7.5 mg/dL (8.5-10.5); Carbon Dioxide 23 mmol/L (22-29); Chloride 103 mmol/L (98-107); Globulin 3.1 g/dL (1.3-4.6); Glucose 170 mg/dL (65-115); Osmolality Calculated 281 mOsm/kg (285-295); Potassium 3.6 mmol/L (3.5-5.1); Sodium 134 mmol/L (136-145); Total Bilirubin 0.4 mg/dL (0.15-1.2); Total Protein 5.3 g/dL (6.6-8.7)
[2021-11-23 11:24] LABS: Basophils # 0.1 10^3/uL (0.0-0.1); Basophils % 0.5 %; Eosinophils # 0.2 10^3/uL (0.0-0.8); Eosinophils % 1.7 %; Hematocrit 21.2 % (42.0-52.0); Lymphocytes # 1.9 10^3/uL (0.8-4.8); Lymphocytes % 18.2 %; Mean Corpuscular HGB Conc 30.7 g/dL (30.0-36.0); Mean Corpuscular Hemoglobin 27.3 pg (28.0-34.0); Mean Corpuscular Volume 89.1 fl (80-94); Mean Platelet Volume 10.3 fL (7.4-10.4); Monocytes # 0.4 10^3/uL (0.2-0.9); Monocytes % 4.1 %; Neutrophils # 8.01 10^3/uL (1.8-7.7); Neutrophils % 75.1 %; Nucleated Red Blood Cells % 0 %; Platelet Count 192 10^3/cmm (130-400); Red Blood Count 2.38 10^6/uL (4.1-5.3); Red Cell Distribution Width 14.2 % (12.1-15.1); White Blood Count 10.7 10^3/uL (4.0-10.0)
[2021-11-23 11:30] LABS: Hemoglobin 6.5 g/dL (11.7-16.6)
[2021-11-23 11:38] LABS: Glucose Point of Care 199 mg/dL (70-110)
--- NOTE | 2021-11-23 12:55 | PC.SOCIAL ---
IMM Update pg 2 of IMM updated and reviewed w/ patient. Copy provided and Copy dated, initialed and placed in chart.
[2021-11-23] MEDS: sodium chloride 0.9% 100 mL Bag 50 ML IV (15:06)
[2021-11-23] MEDS: artificial tears Op Oint 3.5 gm 1 APPLIC EYE-LEFT (15:11)
[2021-11-23 16:36] LABS: Glucose Point of Care 149 mg/dL (70-110)
--- NOTE | 2021-11-23 18:49 | P.PN_ITS ---
Subjective Subjective: Patient was seen and examined this morning, has slight confusion, hemoglobin has dropped to 6.5 Current plan is to transfuse 1 unit PRBC, monitor H&H. Medications: Reviewed: Yes Medication Review Details: Generic Name Dose Route Start Last Admin Trade Name Freq PRN Reason Stop Dose Admin Artificial Tears 1 applic 11/21/21 15:00 11/23/21 15:11 Artificial Tears Op Oint 3.5 Gm EYE-LEFT 1 applic TID CINTIA Administration Aspirin 325 mg 11/21/21 09:00 11/21/21 12:18 Aspirin 325 Mg T ablet PO Not Given DAILY CINTIA Atorvastatin Calci um 40 mg 11/21/21 21:00 11/22/21 20:42 Atorvastatin 40 Mg Tablet PO 40 mg BEDTIME [facility] Administration Docusate Sodium 100 mg 11/22/21 09:00 11/23/21 08:50 Docusate Sodium 100 Mg Capsule PO 100 mg BID [facility] Administration Insulin Glargine 10 unit 11/21/21 08:35 11/22/21 20:52 Insulin Glargine 100 Units/1 Ml SUBCUT Not Given BEDTIME [facility]INT[facility] Insulin Human Lisp ro 0 unit 11/21/21 18:00 11/23/21 18:27 Insulin Lispro 1 00 Unit/1 Ml SUBCUT Not Given WM&BEDTIME [facility] Protocol Non-Formulary Medi cation 1 package 11/22/21 16:17 11/23/21 18:27 Glucerna PO Not Given BID [facility]INTIA Oxycodone/Acetamin ophen 1 tab 11/22/21 07:57 11/23/21 15:08 Oxycodone-Apap 5 -325 Mg Tablet PO 1 tab Q6H PRN Administration MODERATE PAIN Tamsulosin HCl 0.8 mg 11/21/21 09:00 11/23/21 08:50 Tamsulosin 0.4 M g Capsule PO 0.8 mg DAILY [facility] Administration Vitamin D 2,000 unit 11/21/21 09:00 11/23/21 08:46 Cholecalciferol (Vitamin D3) 1,000 Unit Tablet PO 2,000 unit DAILY [facility] Administration Vitals/I&O/Wt Last Vital Signs Temp 98.9 F 11/23/21 17:30 Pulse 112 H 11/23/21 17:30 Resp 16 11/23/21 17:30 BP 165/89 11/23/21 17:30 Pulse Ox 96 11/23/21 16:00 O2 Del Method 11/23/21 16:00 O2 Flow Rate 6 11/22/21 20:00 11/23/21 11/23/21 11/23/21 06:59 14:59 22:59 Intake Total 1000 / 2120 930 / 930 350 / 1280 Output Total 1250 / 2450 Balance -250 / -330 930 / 930 350 / 1280 Weight last 48 hrs Weight 54.204 kg Weight 54 kg Physical Exam Resp: COMMON NORMALS: normal respiratory effort, No retractions, No use of accessory muscles and clear to auscultation bilaterally EFFORT & INSPECTION: Yes symmetric chest movement AUSCULTATION: clear to auscultation bilaterally Cardio: COMMON NORMALS: regular rate, regular rhythm, S1 normal heart sound present, S2 normal heart sound present, No gallops present (Cardio), No murmurs present (Cardio), No rub (Cardio) and Peripheral pulses 2+ throughout RATE: regular rate RHYTHM: regular rhythm HEART SOUNDS: S1 normal heart sound present and S2 normal heart sound present PERIPHERAL PULSES: Peripheral pulses 2+ throughout GI: COMMON NORMALS: Normal to inspection, nondistended, normoactive bowel sounds present, Soft to palpation, non-tender, No hepatosplenomegaly present and no masses AUSCULTATION: Yes normoactive bowel sounds PALPATION: Yes Soft to palpation and Yes No hepatosplenomegaly present RECTAL EXAM: Yes deferred Extremity: COMMON NORMALS: no clubbing, cyanosis or edema and no pedal edema Urinary Catheter Management: Hardy Latex Free: Cath Placed During This Visit: no Reason for Continuing Indwelling Catheter: Chronic Indwelling Urinary Catheter on Admission Data : 11/23/21 10:37 11/23/21 10:37 A&P Assessment and plan (1) Hyperkalemia: Resolved Hold metformin with hyperkalemia, cachexia and recent renal failure would rec ommend using either insulin or a sulfonylurea Currently with low urine output 100 cc overnight we will resume IV fluids Status: Acute (2) Urine retention: Hardy to remain in place. Status: Acute (3) Diabetes mellitus type 2 in nonobese: Cachectic man stop metformin Encourage p.o. intake Status: Acute (4) CVA (cerebral vascular accident): Dysphagia and dysphagia noted currently n.p.o. Will advance diet as tolerated speech therapy eval Patient's DPOA is also his speech therapist and knows him well. Diet started yesterday Status: Acute (5) BPH (benign prostatic hyperplasia): As above leave Hardy in Resume tamsulosin Status: Acute (6) Anemia: Iron studies and stool guaiacs to be obtained. Repeat hemoglobin due at 9 Status: Acute (7) Severe protein-calorie malnutrition: Patient with low albumin and low protein and severely underweight will bolster nutrition with food supplements Status: Acute Plan Resume maintenance IV fluids consult speech therapy Attestations Medical Necessity Statement*: Patient is to be in hospital for management of severe anemia. Coding Level of Care Code Acute Tire Fabric Inspector for Annabelg Devora Diagnoses Hyperkalemia E87.5 Urine retention R33.9 Diabetes mellitus type 2 in nonobese E11.9 CVA (cerebral vascular accident) I63.9 BPH (benign prostatic hyperplasia) N40.0 Anemia D64.9 Severe protein-calorie malnutrition E43
--- NOTE | 2021-11-23 18:53 | PC.NURSE ---
patient refused meal and medications this evening reports he is ok just don't want any thing
[2021-11-23 20:29] LABS: Basophils # 0.1 10^3/uL (0.0-0.1); Basophils % 0.4 %; Eosinophils # 0.2 10^3/uL (0.0-0.8); Hemoglobin 7.9 g/dL (11.7-16.6); Lymphocytes # 2.5 10^3/uL (0.8-4.8); Lymphocytes % 22.3 %; Mean Corpuscular HGB Conc 31.6 g/dL (30.0-36.0); Mean Corpuscular Hemoglobin 26.9 pg (28.0-34.0); Mean Platelet Volume 9.1 fL (7.4-10.4); Monocytes # 0.5 10^3/uL (0.2-0.9); Monocytes % 4.5 %; Neutrophils # 7.99 10^3/uL (1.8-7.7); Neutrophils % 70.3 %; Nucleated Red Blood Cells % 0 %; Platelet Count 170 10^3/cmm (130-400); Red Blood Count 2.94 10^6/uL (4.1-5.3); Red Cell Distribution Width 14.1 % (12.1-15.1); White Blood Count 11.4 10^3/uL (4.0-10.0)
[2021-11-23 20:34] LABS: Glucose Point of Care 145 mg/dL (70-110)
[2021-11-23] MEDS: atorvastatin 40 mg Tablet PO (21:09)
[2021-11-23] MEDS: insulin lispro 100 unit/1 mL SUBCUT (21:11)
[2021-11-23] MEDS: insulin glargine 100 units/1 mL 10 UNIT SUBCUT (21:12)
[2021-11-24] VITALS (11 sets, daily range): BP systolic 125–150; BP diastolic 52–97; PULSE 87–115; RESP 16–20; TEMP 36.6–37.3; O2SAT 95–99
[2021-11-24] MEDS: oxyCODONE-APAP 5-325 mg Tablet 1 TAB PO ×2 (01:57→20:13)
[2021-11-24 02:25] LABS: Basophils # 0.1 10^3/uL (0.0-0.1); Basophils % 0.4 %; Eosinophils # 0.3 10^3/uL (0.0-0.8); Eosinophils % 2.2 %; Hematocrit 24.8 % (42.0-52.0); Hemoglobin 7.9 g/dL (11.7-16.6); Lymphocytes # 2.5 10^3/uL (0.8-4.8); Lymphocytes % 22.2 %; Mean Corpuscular HGB Conc 31.9 g/dL (30.0-36.0); Mean Corpuscular Hemoglobin 27.2 pg (28.0-34.0); Mean Corpuscular Volume 85.5 fl (80-94); Mean Platelet Volume 10.4 fL (7.4-10.4); Monocytes # 0.6 10^3/uL (0.2-0.9); Monocytes % 5.4 %; Neutrophils # 7.83 10^3/uL (1.8-7.7); Neutrophils % 69.4 %; Nucleated Red Blood Cells % 0 %; Platelet Count 183 10^3/cmm (130-400); Red Cell Distribution Width 14.3 % (12.1-15.1); White Blood Count 11.3 10^3/uL (4.0-10.0)
[2021-11-24 02:55] LABS: Alanine Aminotransferase 15 U/L (0-41); Albumin Level 2.5 g/dL (3.5-5.2); Alkaline Phosphatase 93 U/L (40-130); Anion Gap 12.4 (5-19); Aspartate Amino Transferase 19 U/L (0-40); Blood Urea Nitrogen 12 mg/dL (8-23); Calcium 7.9 mg/dL (8.5-10.5); Carbon Dioxide 24 mmol/L (22-29); Chloride 105 mmol/L (98-107); Globulin 3.1 g/dL (1.3-4.6); Glucose 61 mg/dL (65-115); Magnesium 1.3 mg/dL (1.7-2.3); Osmolality Calculated 284 mOsm/kg (285-295); Phosphorus 1.9 mg/dL (2.5-4.5); Potassium 3.4 mmol/L (3.5-5.1); Sodium 138 mmol/L (136-145); Total Bilirubin 0.6 mg/dL (0.15-1.2); Total Protein 5.6 g/dL (6.6-8.7)
[2021-11-24 02:57] LABS: Calcium 7.8 mg/dL (8.5-10.5)
[2021-11-24 03:00] LABS: Parathyroid Hormone 89.1 pg/mL (15-65)
[2021-11-24 06:24] LABS: Glucose Point of Care 98 mg/dL (70-110)
--- NOTE | 2021-11-24 07:33 | PM.PN ---
Subjective Subjective: more awake and less confused. answers simple questions appropriately. no cp or sob. has a posadas w/ good uop Medications: Reviewed: Yes Medication Review Details: Current Medications Acetaminophen (Acetaminophen 500 Mg Tablet) 1,000 mg PO Q6H PRN PRN Reason: MILD PAIN OR INCREASE TEMP Artificial Tears (Artificial Tears Op Oint 3.5 Gm) 1 applic EYE-LEFT TID [facility] Last Admin: 11/23/21 21:14 Dose: Not Given Aspirin (Aspirin 325 Mg Tablet) 325 mg PO DAILY [facility] Last Admin: 11/21/21 12:18 Dose: Not Given Atorvastatin Calcium (Atorvastatin 40 Mg Tablet) 40 mg PO BEDTIME [facility] Last Admin: 11/23/21 21:09 Dose: 40 mg Docusate Sodium (Docusate Sodium 100 Mg Capsule) 100 mg PO BID [facility] Last Admin: 11/23/21 18:53 Dose: Not Given Insulin Glargine (Insulin Glargine 100 Units/1 Ml) 10 unit SUBCUT BEDTIME [facility] Last Admin: 11/23/21 21:12 Dose: 10 unit Insulin Human Lispro (Insulin Lispro 100 Unit/1 Ml) 0 unit SUBCUT WM&BEDTIME [facility]; Protocol Last Admin: 11/23/21 21:11 Dose: 2 unit Lactulose (Lactulose Oral Liq 20 Gm/30 Ml Udc) 10 gm PO DAILY PRN PRN Reason: CONSTIPATION Non-Formulary Medication (Glucerna) 1 package PO BID [facility] Last Admin: 11/23/21 18:27 Dose: Not Given Ondansetron HCl (Ondansetron 2 Mg/Ml Sdv 2 Ml) 4 mg IVP Q6H PRN PRN Reason: NAUSEA AND VOMITING Oxycodone/Acetaminophen (Oxycodone-Apap 5-325 Mg Tablet) 1 tab PO Q6H PRN PRN Reason: MODERATE PAIN Last Admin: 11/24/21 01:57 Dose: 1 tab Tamsulosin HCl (Tamsulosin 0.4 Mg Capsule) 0.8 mg PO DAILY [facility] Last Admin: 11/23/21 08:50 Dose: 0.8 mg Vitamin D (Cholecalciferol (Vitamin D3) 1,000 Unit Tablet) 2,000 unit PO DAILY [facility] Last Admin: 11/23/21 08:46 Dose: 2,000 unit Vitals/I&O/Wt Last Vital Signs Temp 98.2 F 11/24/21 07:06 Pulse 101 H 11/24/21 07:06 Resp 16 11/24/21 07:06 BP 150/95 11/24/21 07:06 Pulse Ox 95 11/24/21 07:06 O2 Del Method 11/24/21 07:06 O2 Flow Rate 6 11/22/21 20:00 11/23/21 11/24/21 11/24/21 22:59 06:59 14:59 Intake Total 470 / 1400 360 / 1760 Output Total 1625 / 1625 Balance 470 / 1400 -1265 / 135 Weight last 48 hrs Weight 53.615 kg Weight 54.204 kg Physical Exam Narrative: comfortable in bed, NARD vs noted heent- nc/at, eomi, anicteric neck supple lungs clear heart reg, +AVILA abd soft, nt, nd, + bs ext no edema neuro- more awake, less confused Urinary Catheter Management: Posadas Latex Free: Cath Placed During This Visit: no Reason for Continuing Indwelling Catheter: Chronic Indwelling Urinary Catheter on Admission Data : 11/24/21 01:55 11/24/21 01:55 A&P Assessment and plan (1) Hyperkalemia: seen via telemedicine with assistance of RN at bedside Status: Acute Plan 76 yr old man w/ dm 1. Acute kidney injury- from obstruction and Prerenal -cr k improved after hd x 1 -keep posadas in -please remove dialysis catheter 2. Anemia -per PMD -ensure pt has had malignancy screening including colonoscopy and PSA 3. Anemia s/p 1 u prbc yesterday 4. hypokalemia and hypomagensemia- likely from post ATN diuresis. replete and monitor k and mag 5. AMS per medicine 6. htn- restart ARB 7. posadas per 8. monitor hypoglycemis- decrease insulin as renal fxn improved - renal will sign off time spent 30 min seen and examined w/ RN telehealth visit Attestations Medical Necessity Statement*: per medicine Time Spent in Patient Care: 16 - 35 minutes (>than 50% of time spent in counselling and/or direct pt care on unit). Coding Level of Care Code Acute Tender Labor for Mary Lozoya Diagnoses Hyperkalemia E87.5
[2021-11-24] MEDS: cholecalciferol (vitamin D3) 1,000 unit Tablet 2000 UNIT PO (10:35)
[2021-11-24] MEDS: tamsulosin 0.4 mg Capsule 0.8 MG PO (10:35)
[2021-11-24] MEDS: docusate sodium 100 mg Capsule PO (10:36)
[2021-11-24] MEDS: potassium chloride oral liq 20 mEq/15 mL UDC 40 MEQ PO (10:36)
[2021-11-24] MEDS: artificial tears Op Oint 3.5 gm 1 APPLIC EYE-LEFT ×2 (10:37→20:14)
[2021-11-24] MEDS: magnesium sulfate premix 2 GM/50 ML PIGGYBACK IV (10:37)
[2021-11-24 11:39] LABS: Glucose Point of Care 152 mg/dL (70-110)
--- NOTE | 2021-11-24 15:39 | PM.PN ---
Subjective Subjective: Patient was seen and examined this morning, much more alert and awake, was complaining of back pain. H&H is stable. Post 1 unit PRBC transfusion Medications: Reviewed: Yes Medication Review Details: Generic Name Dose Route Start Last Admin Trade Name Freq PRN Reason Stop Dose Admin Artificial Tears 1 applic 11/21/21 15:00 11/24/21 10:37 Artificial Tears Op Oint 3.5 Gm EYE-LEFT 1 applic TID CINTIA Administration Aspirin 325 mg 11/21/21 09:00 11/21/21 12:18 Aspirin 325 Mg T ablet PO Not Given DAILY CINTIA Atorvastatin Calci um 40 mg 11/21/21 21:00 11/23/21 21:09 Atorvastatin 40 Mg Tablet PO 40 mg BEDTIME CINTIA Administration Docusate Sodium 100 mg 11/22/21 09:00 11/24/21 10:36 Docusate Sodium 100 Mg Capsule PO 100 mg BID CINTIA Administration Non-Formulary Medi cation 1 package 11/22/21 16:17 11/24/21 10:37 Glucerna PO Not Given BID CINTIA Oxycodone/Acetamin ophen 1 tab 11/22/21 07:57 11/24/21 01:57 Oxycodone-Apap 5 -325 Mg Tablet PO 1 tab Q6H PRN Administration MODERATE PAIN Tamsulosin HCl 0.8 mg 11/21/21 09:00 11/24/21 10:35 Tamsulosin 0.4 M g Capsule PO 0.8 mg DAILY CINTIA Administration Vitamin D 2,000 unit 11/21/21 09:00 11/24/21 10:35 Cholecalciferol (Vitamin D3) 1,000 Unit Tablet PO 2,000 unit DAILY CINTIA Administration Vitals/I&O/Wt Last Vital Signs Temp 97.8 F 11/24/21 11:20 Pulse 113 H 11/24/21 11:20 Resp 18 11/24/21 11:20 BP 150/97 11/24/21 11:20 Pulse Ox 96 11/24/21 11:20 O2 Del Method 11/24/21 11:20 O2 Flow Rate 6 11/22/21 20:00 11/24/21 11/24/21 11/24/21 06:59 14:59 22:59 Intake Total 360 / 1760 770 / 770 Output Total 1625 / 1625 Balance -1265 / 135 770 / 770 Weight last 48 hrs Weight 53.615 kg Weight 54.204 kg Physical Exam Resp: COMMON NORMALS: normal respiratory effort, No retractions, No use of accessory muscles and clear to auscultation bilaterally EFFORT & INSPECTION: Yes symmetric chest movement AUSCULTATION: clear to auscultation bilaterally Cardio: COMMON NORMALS: regular rate, regular rhythm, S1 normal heart sound present, S2 normal heart sound present, No gallops present (Cardio), No murmurs present (Cardio), No rub (Cardio) and Peripheral pulses 2+ throughout RATE: regular rate RHYTHM: regular rhythm HEART SOUNDS: S1 normal heart sound present and S2 normal heart sound present PERIPHERAL PULSES: Peripheral pulses 2+ throughout GI: COMMON NORMALS: Normal to inspection, nondistended, normoactive bowel sounds present, Soft to palpation, non-tender, No hepatosplenomegaly present and no masses AUSCULTATION: Yes normoactive bowel sounds PALPATION: Yes Soft to palpation and Yes No hepatosplenomegaly present RECTAL EXAM: Yes deferred Extremity: COMMON NORMALS: no clubbing, cyanosis or edema and no pedal edema Urinary Catheter Management: Hardy Latex Free: Cath Placed During This Visit: no Reason for Continuing Indwelling Catheter: Chronic Indwelling Urinary Catheter on Admission Data : 11/24/21 01:55 11/24/21 01:55 A&P Assessment and plan (1) Hyperkalemia: Resolved Hold metformin with hyperkalemia, cachexia and recent renal failure would recommend using either insulin or a sulfonylurea Currently with low urine output 100 cc overnight we will resume IV fluids Status: Acute (2) Urine retention: Hardy to remain in place. Status: Acute (3) Diabetes mellitus type 2 in nonobese: Cachectic man stop metformin Encourage p.o. intake Status: Acute (4) CVA (cerebral vascular accident): Dysphagia and dysphagia noted currently n.p.o. Will advance diet as tolerated speech therapy eval Patient's DPOA is also his speech therapist and knows him well. Diet started yesterday Status: Acute (5) BPH (benign prostatic hyperplasia): As above leave Hardy in Resume tamsulosin Status: Acute (6) Anemia: Iron studies and stool guaiacs to be obtained. Repeat hemoglobin due at 9 Status: Acute (7) Severe protein-calorie malnutrition: Patient with low albumin and low protein and severely underweight will bolster nutrition with food supplements Status: Acute Plan Resume maintenance IV fluids consult speech therapy Attestations Medical Necessity Statement*: Patient is ready for discharge to correction, awaiting prior Auth. Coding Level of Care Code Acute [employer] Professional for Chg Fwd Exam Expanded Problem Focused Diagnoses Hyperkalemia E87.5 Urine retention R33.9 Diabetes mellitus type 2 in nonobese E11.9 CVA (cerebral vascular accident) I63.9 BPH (benign prostatic hyperplasia) N40.0 Anemia D64.9 Severe protein-calorie malnutrition E43
[2021-11-24 16:40] LABS: Glucose Point of Care 99 mg/dL (70-110)
[2021-11-24] MEDS: atorvastatin 40 mg Tablet PO (20:13)
[2021-11-24 20:40] LABS: Glucose Point of Care 103 mg/dL (70-110)
[2021-11-25] VITALS (8 sets, daily range): BP systolic 124–156; BP diastolic 49–78; PULSE 0–114; RESP 17–24; TEMP 36.6–37.1; O2SAT 92–99
[2021-11-25] MEDS: oxyCODONE-APAP 5-325 mg Tablet 1 TAB PO ×2 (01:48→10:35)
[2021-11-25 05:10] LABS: Basophils % 0.4 %; Eosinophils # 0.2 10^3/uL (0.0-0.8); Eosinophils % 1.6 %; Hematocrit 25.8 % (42.0-52.0); Hemoglobin 8.1 g/dL (11.7-16.6); Lymphocytes # 2.2 10^3/uL (0.8-4.8); Mean Corpuscular HGB Conc 31.4 g/dL (30.0-36.0); Mean Corpuscular Hemoglobin 27.1 pg (28.0-34.0); Mean Corpuscular Volume 86.3 fl (80-94); Monocytes # 0.5 10^3/uL (0.2-0.9); Monocytes % 4.8 %; Neutrophils # 7.61 10^3/uL (1.8-7.7); Nucleated Red Blood Cells % 0 %; Platelet Count 188 10^3/cmm (130-400); Red Blood Count 2.99 10^6/uL (4.1-5.3); Red Cell Distribution Width 14.6 % (12.1-15.1); White Blood Count 10.6 10^3/uL (4.0-10.0)
[2021-11-25 05:39] LABS: Alanine Aminotransferase 14 U/L (0-41); Albumin Level 2.5 g/dL (3.5-5.2); Alkaline Phosphatase 95 U/L (40-130); Anion Gap 15.7 (5-19); Aspartate Amino Transferase 15 U/L (0-40); Blood Urea Nitrogen 14 mg/dL (8-23); Calcium 8.5 mg/dL (8.5-10.5); Carbon Dioxide 22 mmol/L (22-29); Chloride 104 mmol/L (98-107); Globulin 3.2 g/dL (1.3-4.6); Glucose 74 mg/dL (65-115); Magnesium 1.7 mg/dL (1.7-2.3); Osmolality Calculated 285 mOsm/kg (285-295); Potassium 3.7 mmol/L (3.5-5.1); Sodium 138 mmol/L (136-145); Total Bilirubin 0.6 mg/dL (0.15-1.2); Total Protein 5.7 g/dL (6.6-8.7)
[2021-11-25 06:26] LABS: Glucose Point of Care 70 mg/dL (70-110)
[2021-11-25 09:32] LABS: SARS Covid-2 Antigen Negative (Negative)
[2021-11-25] MEDS: docusate sodium 100 mg Capsule PO (10:25)
[2021-11-25] MEDS: tamsulosin 0.4 mg Capsule 0.8 MG PO (10:25)
[2021-11-25] MEDS: cholecalciferol (vitamin D3) 1,000 unit Tablet 2000 UNIT PO (10:25)
[2021-11-25] MEDS: artificial tears Op Oint 3.5 gm 1 APPLIC EYE-LEFT (10:26)
--- NOTE | 2021-11-25 10:27 | PC.NURSE ---
femoral Central line removed from left groin patient tolerated well no hematoma or other outward event noted site cleaned
--- NOTE | 2021-11-25 11:27 | PC.SOCIAL ---
IMM update IMM updated with patient. Copy Pg 2 provided. Verbalized an understanding. Initialled, dated, timed, and placed in chart.
[2021-11-25 12:20] LABS: Glucose Point of Care 69 mg/dL (70-110)
--- NOTE | 2021-11-25 12:27 | PM.DCS ---
Discharge Providers Date of Admission: 11/20/21 15:58 Date of Discharge: November 25, 2021 Attending Provider at Admission: Ben De La Rosa MD Attending Provider at Discharge: Triston Vargas MD Primary Care Provider: Emmanuel He MD Diagnoses at Discharge Discharge Diagnosis (1) Hyperkalemia: Status: Acute (2) Urine retention: Status: Acute (3) Diabetes mellitus type 2 in nonobese: Status: Acute (4) CVA (cerebral vascular accident): Status: Acute (5) BPH (benign prostatic hyperplasia): Status: Acute (6) Anemia: Status: Acute (7) Severe protein-calorie malnutrition: Status: Acute Reason for Visit Reason for Visit: MENTAL STATUS CHANGES/ DEHYDRATION/ DIARRHEA Hospital Course Hospital Course HPI: Ben De La Rosa MD 75 year old male lives at snf facility and has history of stroke, dysarthria, dysphagia, left-sided weakness, residual right-sided weakness urinary retention diabetes hypertension and recently fell and broke his right hip.? Patient underwent right hip fracture hemiarthroplasty by Shaggy Groves.? He was found to have NSTEMI but declined intervention. Today the patient came in with acute renal failure, acute hyperkalemia to 10 and was intended to have voiding trial following discharge on 11/11/2021 with a Hardy Patient was noted not to have a Hardy upon arrival today with urinary retention,, dehydration, hyperkalemia and acute renal failure Hospital course: Patient was admitted for the management of acute renal failure hyperkalemia: Possible reason for acute kidney injury was volume depletion and acute urinary retention.Patient was discharged on last admission: With Hardy catheter for acute urinary retention.When he got admitted this time there was no Hardy catheter in place. Hemodialysis catheter was placed underwent 1 session of hemodialysis. Thereafter kidney function was monitored , electrolytes were monitored, at the time of discharge kidney function had completely normalized, patient was discharged with Hardy, voiding trial can be done at the [facility], If he continues to have urinary retention he will have to follow-up with urology as outpatient. During the hospital stay patient also received 1 unit PRBC blood transfusion for low hemoglobin, posttransfusion H&H was monitored. At the time of discharge H&H was stable. Patient will need a repeat CBC in 1 week, if his H&H continues to drop, he will need possible EGD colonoscopy FOBT and complete anemia work-up. Aspirin and Plavix has been kept on hold on discharge.Oral potassium has also Been kept on hold on discharge, his blood sugar has been fairly low, Lantus has also been kept on hold on discharge, Oral metformin has been continued, depending upon the fingerstick glucose monitoring, decision regarding initiating Lantus can be taken later. Overall patient has responded well to above medical management and is being discharged in stable condition to custodial.He will continue to follow-up with his primary care physician as outpatient. Physical Exam Resp: COMMON NORMALS: normal respiratory effort, No retractions, No use of accessory muscles and clear to auscultation bilaterally EFFORT & INSPECTION: Yes symmetric chest movement AUSCULTATION: clear to auscultation bilaterally Cardio: COMMON NORMALS: regular rate, regular rhythm, S1 normal heart sound present, S2 normal heart sound present, No gallops present (Cardio), No murmurs present (Cardio), No rub (Cardio) and Peripheral pulses 2+ throughout RATE: regular rate RHYTHM: regular rhythm HEART SOUNDS: S1 normal heart sound present and S2 normal heart sound present PERIPHERAL PULSES: Peripheral pulses 2+ throughout GI: COMMON NORMALS: Normal to inspection, nondistended, normoactive bowel sounds present, Soft to palpation, non-tender, No hepatosplenomegaly present and no masses AUSCULTATION: Yes normoactive bowel sounds PALPATION: Yes Soft to palpation and Yes No hepatosplenomegaly present RECTAL EXAM: Yes deferred Extremity: COMMON NORMALS: no clubbing, cyanosis or edema and no pedal edema Urinary Catheter Management: Hardy Latex Free: Cath Placed During This Visit: no Reason for Continuing Indwelling Catheter: Chronic Indwelling Urinary Catheter on Admission Discharge Data Studies Completed and Pending Completed Studies During Hospitalization Category Date Time Status CT abdomen pelvis wo con [id number] Routine Cat Scan 11/20/21 14:[address] head wo con* [id number] Stat Cat Scan 11/20/21 10:24 Completed CXRP [XR chest 1V portable [id number]] Routine Exams 11/21/21 01:14 Completed XR KUB portable [id number] Routine Exams 11/20/21 23:14 Completed XR chest 1V portable [id number] Stat Exams 11/20/21 10:24 Completed Pending at discharge Category Date Time Status Complete Blood Count w/Auto AM LABS Lab 11/26/21 04:00 Ordered Comprehensive Metabolic Panel AM LABS Lab 11/26/21 04:00 Ordered Comprehensive Metabolic Panel AM LABS Lab 11/26/21 04:00 Ordered Comprehensive Metabolic Panel AM LABS Lab 11/27/21 04:00 Ordered Fecal Occult Blood [Immunochemical Fecal OCB] Routine Lab 11/24/21 08:34 Uncollected Magnesium AM LABS Lab 11/26/21 04:00 Ordered Magnesium AM LABS Lab 11/26/21 04:00 Ordered Magnesium AM LABS Lab 11/27/21 04:00 Ordered Occult Blood Stool [Immunochemical Fecal OCB] Routine Lab 11/22/21 16:17 Uncollected Phosphorus AM LABS Lab 11/26/21 04:00 Ordered Phosphorus AM LABS Lab 11/26/21 04:00 Ordered Phosphorus AM LABS Lab 11/27/21 04:00 Ordered Radiology Impressions Head CT 11/20/21 10:24 IMPRESSION: 1. No evidence of intracranial hemorrhage or mass effect. 2. Advanced small vessel changes. Moderate parenchymal volume loss. 3. Chronic lacunar infarcts in the bilateral basal ganglia. 4. Chronic infarcts in the RIGHT greater than LEFT cerebellum and zuleima. 5. Moderate brain stem atrophy unchanged. 6. No acute intracranial findings. Abdomen/Pelvis CT 11/20/21 14:02 IMPRESSION: 1. LEFT lower groin catheter appears extravascular with tip in the presacral space. No evidence of bowel perforation or fluid collection. 2. Small amount of hematoma along the RIGHT lower rectus abdominis/rectus sheath likely due to recent attempted line placement. 3. Dense vascular calcification throughout the abdomen and pelvis. 4. Hardy catheter. 5. RIGHT EMILY degrades images in the pelvis. 6. No other acute findings. Discussed with Shaggy Groves DO at 11/20/2021 2:00 PM. KUB X-Ray 11/20/21 23:14 IMPRESSION: 1. Left femoral central venous catheter seen over the left pelvis. 2. Right hip arthroplasty changes seen with surgical анна overlying the lateral aspect of the hip. Chest X-Ray 11/21/21 01:14 IMPRESSION: No chest radiographic evidence of acute cardiopulmonary disease. Laboratory Results WBC 10.6 10^3/uL (4.0-10.0) H 11/25/21 04:55 Corrected WBC Cancelled 11/21/21 03:20 RBC 2.99 10^6/uL (4.1-5.3) L 11/25/21 04:55 Hgb 8.1 g/dL (11.7-16.6) L 11/25/21 04:55 Hct 25.8 % (42.0-52.0) L 11/25/21 04:55 MCV 86.3 fl (80-94) 11/25/21 04:55 MCH 27.1 pg (28.0-34.0) L 11/25/21 04:55 MCHC 31.4 g/dL (30.0-36.0) 11/25/21 04:55 RDW 14.6 % (12.1-15.1) 11/25/21 04:55 Plt Count 188 10^3/cmm (130-400) 11/25/21 04:55 MPV 10.0 fL (7.4-10.4) 11/25/21 04:55 Gran % Cancelled 11/21/21 03:20 Neut % (Auto) 72.0 % 11/25/21 04:55 Lymph % (Auto) 21.0 % 11/25/21 04:55 Bracken % (Auto) 4.8 % 11/25/21 04:55 Eos % (Auto) 1.6 % 11/25/21 04:55 Baso % (Auto) 0.4 % 11/25/21 04:55 Neut # (Auto) 7.61 10^3/uL (1.8-7.7) 11/25/21 04:55 Lymph # (Auto) 2.2 10^3/uL (0.8-4.8) 11/25/21 04:55 Bracken # (Auto) 0.5 10^3/uL (0.2-0.9) 11/25/21 04:55 Eos # (Auto) 0.2 10^3/uL (0.0-0.8) 11/25/21 04:55 Baso # (Auto) 0.0 10^3/uL (0.0-0.1) 11/25/21 04:55 Absolute Gran (auto) Cancelled 11/21/21 03:20 Nucleated RBC % (auto) 0 % 11/25/21 04:55 Nucleated RBCs # 0.0 /100WBC 11/25/21 04:55 Specimen Type Arterial 11/20/21 11:06 Sample Site Radial, right 11/20/21 11:06 ABG pH 7.32 (7.35-7.45) L 11/20/21 11:06 ABG pCO2 42.4 mmHg (35-45) 11/20/21 11:06 ABG pO2 207.0 mmHg (80.0-100.0) H 11/20/21 11:06 ABG HCO3 21.6 mmol/L (22-26) L 11/20/21 11:06 ABG O2 Saturation > 100.0 11/20/21 11:06 ABG Base Excess -4.3 mmol/L (-2.0-2.0) L 11/20/21 11:06 Murali Test Pos 11/20/21 11:06 A-a O2 Gradient Not Reportable 11/20/21 11:06 Hematocrit 30.7 % (42-52) L 11/20/21 11:06 Hgb O2 Saturation 98.6 % (95-100) 11/20/21 11:06 Carboxyhemoglobin 0.9 %THgb (0.4-20.1) 11/20/21 11:06 Methemoglobin 0.6 % (0.4-1.5) 11/20/21 11:06 Total Hemoglobin 10.0 g/dL (14-18) L 11/20/21 11:06 Sodium 145.0 mmol/L (131-143) H 11/20/21 11:06 Potassium 9.4 mmol/L (3.5-5.0) H 11/20/21 11:06 Glucose 147.0 mg/dL (70-115) H 11/20/21 11:06 Ionized Calcium 1.4 mmol/L (1.1-1.4) 11/20/21 11:06 O2 Delivery Device Oxy mask 11/20/21 11:06 O2 Liters/Min 6.0 % 11/20/21 11:06 [employer]actions Attorney ID Cak 11/20/21 11:06 Sodium 138 mmol/L (136-145) 11/25/21 04:55 Potassium 3.7 mmol/L (3.5-5.1) 11/25/21 04:55 Chloride 104 mmol/L (98-107) 11/25/21 04:55 Carbon Dioxide 22 mmol/L (22-29) 11/25/21 04:55 Anion Gap 15.7 (5-19) 11/25/21 04:55 BUN 14 mg/dL (8-23) 11/25/21 04:55 Creatinine 0.9 mg/dL (0.7-1.2) 11/25/21 04:55 GFR Calculation Not Reportable 11/25/21 04:55 Glucose 74 mg/dL (65-115) 11/25/21 04:55 POC Glucose 69 mg/dL (70-110) L 11/25/21 12:10 Calculated Osmolality 285 mOsm/kg (285-295) 11/25/21 04:55 Lactic Acid 2.1 mmol/L (0.5-2.2) 11/20/21 10:14 Lactic Acid (Sepsis) 2.4 mmol/L (0.5-2.2) H 11/20/21 14:22 Calcium 8.5 mg/dL (8.5-10.5) 11/25/21 04:55 Phosphorus 2.0 mg/dL (2.5-4.5) L 11/25/21 04:55 Magnesium 1.7 mg/dL (1.7-2.3) 11/25/21 04:55 Iron 49 ug/dL (59-158) L 11/22/21 09:01 TIBC 146 mcg/dl 11/22/21 09:01 % Saturation 33.5 % (20-50) 11/22/21 09:01 Unsat Iron Binding 97 ug/dL (112-347) L 11/22/21 09:01 Total Bilirubin 0.6 mg/dL (0.15-1.2) 11/25/21 04:55 AST 15 U/L (0-40) 11/25/21 04:55 ALT 14 U/L (0-41) 11/25/21 04:55 Alkaline Phosphatase 95 U/L (40-130) 11/25/21 04:55 Total Protein 5.7 g/dL (6.6-8.7) L 11/25/21 04:55 Albumin 2.5 g/dL (3.5-5.2) L 11/25/21 04:55 Globulin 3.2 g/dL (1.3-4.6) 11/25/21 04:55 PTH Intact 89.1 pg/mL (15-65) H 11/24/21 01:55 Calcium (PTH Intact) 7.8 mg/dL (8.5-10.5) L 11/24/21 01:55 Random Cortisol 14.42 ug/dL (2.47-19.5) 11/21/21 03:20 Urine Color Yellow (Yellow) 11/20/21 11:00 Urine Appearance Clear (CLEAR) 11/20/21 11:00 Urine pH 5 (5-7) 11/20/21 11:00 Ur Specific Pir[place] 1.015 (1.005-1.030) 11/20/21 11:00 Urine Protein Neg (Negative) 11/20/21 11:00 Urine Glucose (UA) Norm (Normal) 11/20/21 11:00 Urine Ketones 1+ (Negative) H 11/20/21 11:00 Urine Blood Trace (Negative) H 11/20/21 11:00 Urine Nitrate Negative (Negative) 11/20/21 11:00 Urine Bilirubin Neg (Negative) 11/20/21 11:00 Urine Urobilinogen Neg mg/dL (Negative) 11/20/21 11:00 Ur Leukocyte Esterase Trace (Negative) H 11/20/21 11:00 Urine RBC 0-4 /hpf (0-2) H 11/20/21 11:00 Urine WBC 0-4 /hpf (0-5) H 11/20/21 11:00 Ur Squamous Epith Cells 25-40 /hpf (0-5) H 11/20/21 11:00 Amorphous Sediment Not Reportable 11/20/21 11:00 Urine Bacteria Trace /hpf (NONE) 11/20/21 11:00 Serum Ketones Negative (Negative) 11/20/21 10:24 Hep Bs Antigen Non-reactive (Nonreactive) 11/20/21 17:49 Hep Bs Antibody 26.3 (11.5-1000) 11/20/21 17:49 Hepatitis C Antibody Non-reactive (Nonreactive) 11/20/21 10:20 SARS-CoV-2 Ag (Rapid) Negative (Negative) 11/25/21 08:57 Blood Type A Positive 11/21/21 11:51 Rho(D) Type Positive 11/21/21 11:51 Antibody Screen Negative 11/21/21 11:51 Crossmatch See Detail 11/21/21 11:51 Vitals Last Vital Signs Temp 98.1 F 11/25/21 11:32 Pulse 114 H 11/25/21 11:32 Resp 17 11/25/21 11:32 BP 156/78 11/25/21 11:32 Pulse Ox 97 11/25/21 11:32 O2 Del Method 11/25/21 11:32 O2 Flow Rate 6 11/22/21 20:00 Discharge Plan Discharge Patient Disposition: Xfer SNF Condition: Stable Prescriptions: Continued hydrocodone-acetaminophen 10-325 mg Tablet 1 tab PO Q8H PRN (Reason: Pain, Moderate) magnesium oxide 400 mg (241.3 mg magnesium) Tablet 400 mg PO BID Qty: 6 0RF metformin 1,000 mg tablet 1,000 mg PO BID azelastine 137 mcg (0.1 %) aerosol,spray 1 spray INTRANASAL BID metoprolol tartrate 25 mg tablet 25 mg PO DAILY calcium carbonate-vitamin D3 600 mg-10 mcg (400 unit) Tablet 1 ea PO BID 30 Days Qty: 60 0RF tamsulosin 0.4 mg Capsule 0.8 mg PO DAILY Qty: 30 0RF atorvastatin 40 mg Tablet 40 mg PO BEDTIME Qty: 90 0RF albuterol sulfate 2.5 mg /3 mL (0.083 %) Solution For Nebulization 2.5 mg INHALATION Q4H PRN (Reason: Shortness Of Breath Or Wheezing) fexofenadine 60 mg Tablet 60 mg PO Q12H Milk of Magnesia 400 mg/5 mL Suspension 30 ml PO DAILY PRN (Reason: Constipation) Dulcolax (bisacodyl) 10 mg Suppository 10 mg [place] DAILY PRN (Reason: Constipation) Fleet Enema 19-7 gram/118 mL Enema 118 ml [place] DAILY PRN (Reason: Constipation) cholecalciferol (vitamin D3) 1,250 mcg (50,000 unit) Capsule 1,250 mcg PO Q7D Rx Instructions: ON TUESDAY amino acids-protein hydrolys 15-101 gram-kcal/30 mL Liquid 1 ea PO BID Held Ac Bundy U-300 Insulin 300 unit/mL (1.5 mL) insulin pen 20 unit SUBCUT BID Hold Instructions: Resume on 12/09/21. clopidogrel 75 mg Tablet 75 mg PO DAILY Qty: 30 0RF Hold Instructions: Resume on 12/09/21. aspirin 325 mg Tablet 325 mg PO BID Hold Instructions: Resume on 12/09/21. Discontinued potassium chloride 20 mEq tablet,ER particles/crystals 20 meq PO BID fluconazole 200 mg tablet 200 mg PO DAILY 14 Days Qty: 14 0RF cefdinir 300 mg Capsule 300 mg PO BID Discharge Orders: Discharge Order (Routine); Ordered 11/25/21 Ordered By: Triston Vargas Other Ambulatory Orders: Complete Blood Count w/Auto (Routine) Timeframe: 1 Week Location: Determined by Patient Ordered By: Triston Vargas Referrals: [facility] [Outside] Marleni Worthington MD [Staff Physician] - Patient Instructions: Opioid Safety Discharge Attestations Time Spent in Discharge Care*: less than 30 min Quality Metrics Clinical Quality Measures [ No reported AMI, CVA or VTE this stay] Coding Level of Care Code Acute Chg FW DC note Exam Expanded Problem Focused Diagnoses Hyperkalemia E87.5 Urine retention R33.9 Diabetes mellitus type 2 in nonobese E11.9 CVA (cerebral vascular accident) I63.9 BPH (benign prostatic hyperplasia) N40.0 Anemia D64.9 Severe protein-calorie malnutrition E43
--- NOTE | 2021-11-25 14:42 | PC.NURSE ---
Discharge Note Patient discharged to SNF via transport services accompanied by personnel. Discharge instructions reviewed with patient and/or event representative. Mobile pharmacy medications and/or prescriptions provided. Belongings/home medications returned.
== END 2021-11-25 14:42 | disposition skilled nursing facility (03) | DRG 682 ==
LOC: ER 10:51 → ICU 13:27 → MEDSURG 11-23 08:03 → ICU 11-25 02:04
PROVIDERS: Internal Medicine; Internal Medicine Nephrology; Surgery; Admitting Provider Internal Medicine; Emergency Provider Family Medicine; PCP Family Medicine; Visit Provider Internal Medicine
PROC: 05HN33Z Insertion of Infusion Device into Left Internal Jugular Vein, Percutaneous Approach (ICD-10-PCS; principal; 2021-11-20 16:00)
DX: N17.9 Acute kidney failure, unspecified (principal); E43 Unspecified severe protein-calorie malnutrition; I69.951 Hemiplegia and hemiparesis following unspecified cerebrovascular disease affecting right dominant side; Z68.1 Body mass index [BMI] 19.9 or less, adult; E87.5 Hyperkalemia; I25.2 Old myocardial infarction; N40.1 Benign prostatic hyperplasia with lower urinary tract symptoms; R33.8 Other retention of urine; I69.922 Dysarthria following unspecified cerebrovascular disease; I69.991 Dysphagia following unspecified cerebrovascular disease; R13.10 Dysphagia, unspecified; E11.51 Type 2 diabetes mellitus with diabetic peripheral angiopathy without gangrene; I10 Essential (primary) hypertension; F17.200 Nicotine dependence, unspecified, uncomplicated; Z79.51 Long term (current) use of inhaled steroids; Z79.84 Long term (current) use of oral hypoglycemic drugs; Z79.891 Long term (current) use of opiate analgesic; Z96.641 Presence of right artificial hip joint; E86.0 Dehydration
CPT/HCPCS: 36415; 36416; 36430; 36592; 36600; 70450; 71045; 74018; 74176; 77001; 80048; 80051; 80053; 81001; 82009; 82274; 82310; 82330; 82533; 82805; 82962; 83540; 83550; 83605; 83735; 83970; 84100; 85014; 85018; 85025; 86706; 86803; 86850; 86900; 86920; 87040; 87340; 87426; 92507; 92523; 92526; 92610; 93005; 94640; 96372; 96374; 96375; 97110; 97161; 97166; 97530; 97535; 99285; C1752; J0713; J1644; J1815; J1940; J2270; J2370; J2704; J3475; J3490; J7030; J7611; J7799; P9016; Q3014

== ENCOUNTER → 2021-11-30 10:00 | Outpatient (BNVA) | payer MEDICARE, MEDICAID, SELFPAY | PROVIDERS: PCP Family Medicine; Visit Provider Student in an Organized Health Care Education/Training Program | DX: S72.001A Fracture of unspecified part of neck of right femur, initial encounter for closed fracture (principal); X58.XXXA Exposure to other specified factors, initial encounter | CPT/HCPCS: 73502; 99024 ==

== ENCOUNTER → 2021-12-14 12:11 | Outpatient (BNVA) | payer MEDICARE, MEDICAID, SELFPAY | PROVIDERS: PCP Internal Medicine; Visit Provider Internal Medicine | DX: I73.9 Peripheral vascular disease, unspecified (principal); I10 Essential (primary) hypertension; F17.210 Nicotine dependence, cigarettes, uncomplicated | CPT/HCPCS: 99204 ==

== ENCOUNTER 2022-01-21 07:13 | Outpatient (CLI) | payer MEDICARE, MEDICAID, SELFPAY ==
[2022-01-21 07:29] LABS: Basophils % 0.4 %; Eosinophils # 0.2 10^3/uL (0.0-0.8); Hematocrit 26.3 % (42.0-52.0); Lymphocytes # 2.8 10^3/uL (0.8-4.8); Lymphocytes % 30.2 %; Mean Corpuscular HGB Conc 30.4 g/dL (30.0-36.0); Mean Corpuscular Hemoglobin 26.8 pg (28.0-34.0); Mean Corpuscular Volume 88.3 fl (80-94); Mean Platelet Volume 9.9 fL (7.4-10.4); Monocytes # 0.5 10^3/uL (0.2-0.9); Monocytes % 5.2 %; Neutrophils # 5.66 10^3/uL (1.8-7.7); Neutrophils % 61.8 %; Nucleated Red Blood Cells % 0 %; Platelet Count 298 10^3/cmm (130-400); Red Blood Count 2.98 10^6/uL (4.1-5.3); Red Cell Distribution Width 15.5 % (12.1-15.1); White Blood Count 9.2 10^3/uL (4.0-10.0)
== END 2022-01-21 07:14 | disposition home or self-care (01) ==
PROVIDERS: Internal Medicine; PCP Internal Medicine; Visit Provider Internal Medicine
DX: D64.9 Anemia, unspecified (principal)
CPT/HCPCS: 85025

== ENCOUNTER 2022-01-28 12:28 | Outpatient (CLI) | payer MEDICARE, MEDICAID, SELFPAY | END 2022-01-28 12:29 | disposition home or self-care (01) | PROVIDERS: PCP Internal Medicine; Visit Provider Nurse Practitioner Family | DX: R19.7 Diarrhea, unspecified (principal) | CPT/HCPCS: 87493 ==